=== PATIENT | male | born 1935 | race Caucasian/White ===

== ENCOUNTER → 2016-06-10 | Outpatient (CLI) | payer MEDICARE ==
[~2016-06-10] MED LIST: /WARF2TA; LASI20TA; NEUR300C; POTA10CA2; POTASSIUM; SYNT88TA; TENO50TA; TYLENOL; VICO5TAB; ZOCO20TA
== END ==
LOC: M LAB 08:05
PROVIDERS: ATTEND Physician Assistant
DX: I35.8 Other nonrheumatic aortic valve disorders (principal)

== ENCOUNTER → 2016-06-11 | Outpatient (CLI) | payer MEDICARE | LOC: M LAB 10:56 | PROVIDERS: ATTEND Physician Assistant | DX: I35.8 Other nonrheumatic aortic valve disorders (principal) ==

== ENCOUNTER → 2016-06-12 | Outpatient (CLI) | payer MEDICARE | LOC: M LAB 10:17 | PROVIDERS: ATTEND Physician Assistant | DX: I35.8 Other nonrheumatic aortic valve disorders (principal) ==

== ENCOUNTER → 2016-06-17 | Outpatient (CLI) | payer MEDICARE ==
[2016-06-17 12:04] LABS: INR 2.4
== END ==
LOC: M SMT 09:05
PROVIDERS: ATTEND Internal Medicine Cardiovascular Disease
DX: I48.2 Chronic atrial fibrillation (principal)

== ENCOUNTER → 2016-06-17 | Outpatient (CLI) | payer MEDICARE | LOC: M SMT 09:02 | PROVIDERS: ATTEND Urology | DX: C61 Malignant neoplasm of prostate (principal); I48.2 Chronic atrial fibrillation ==

== ENCOUNTER → 2016-07-06 | Outpatient (CLI) | payer MEDICARE ==
[2016-07-06 08:12] LABS: INR 2.18
== END ==
LOC: M LAB 07:27
PROVIDERS: ATTEND Physician Assistant
DX: I48.2 Chronic atrial fibrillation (principal)

== ENCOUNTER → 2016-07-10 | Outpatient (CLI) | payer MEDICARE ==
--- NOTE | 2016-07-10 13:05 | REP ---
TRANSRECTAL PROSTATE ULTRASOUND WITH ULTRASOUND GUIDANCE FOR PROSTATE BIOPSY: Real-time sonographic evaluation of the prostate performed utilizing transrectal probe. Sagittal gland is 5.0 x 3.5 x 5.0 cm for a total volume of 45.9 mL. Seminal vesicles are symmetrical. Echotexture of the prostate is heterogeneous with scattered tiny calcifications. Hypoechoic nodular area on the right measures 8 x 6 x 9 mm. This appears to have been present on the prior study and has not definitely changed. Ultrasound guidance was provided for Dr. Meadows who performed ultrasound guided biopsy of the prostate. Signed by Azar Francis MD 07/10/2016 02:29 P
== END | disposition home or self-care (01) ==
LOC: M SMT PRO 09:20
PROVIDERS: ATTEND Urology
DX: C61 Malignant neoplasm of prostate (principal)
CPT/HCPCS: 76872; 76942; G0416

== ENCOUNTER → 2016-08-03 | Outpatient (CLI) | payer MEDICARE ==
[2016-08-03 14:02] LABS: INR 1.95
== END ==
LOC: M SMT 09:04
PROVIDERS: ATTEND Internal Medicine Cardiovascular Disease
DX: I48.2 Chronic atrial fibrillation (principal)

== ENCOUNTER → 2016-09-01 | Outpatient (CLI) | payer MEDICARE ==
[~2016-09-01] VITALS: Ht 167.6 cm; Wt 56.7 kg
[~2016-09-01] MED LIST changes: +ATEN50TA2 PO; +COUM1TAB19 PO; +LASI20TA PO; +LEVO88TA3 PO; +MICR10CA PO; +PROPOFOL 200 MG/20 ML VIAL As Ordered ONE; +SIMV20TA2 PO
[2016-09-01] MEDS: LR 1,000 ML IV SCH ×2 (08:38→08:39)
--- NOTE | 2016-09-01 10:12 | ROOR ---
Patient Name: Surinder Moran Procedure Date: 09/01/2016 9:17 AM Date of : 1935 Age: 81 Room: [facility] Gender: Male Note Status: Finalized Procedure: Colonoscopy Indications: High risk colon cancer surveillance: Personal history of colon cancer, Last colonoscopy: April 2012 Providers: Clark Adan MD Referring MD: MAGUI DRAKE MD Requesting Provider: Medicines: Monitored Anesthesia Care Complications: No immediate complications. Procedure: Pre-Anesthesia Assessment: - Prior to the procedure, a History and Physical was performed, and patient medications and allergies were reviewed. The patient is competent. The risks and benefits of the procedure and the sedation options and risks were discussed with the patient. All questions were answered and informed consent was obtained. Patient identification and proposed procedure were verified by the physician, the nurse and the anesthesiologist in the procedure room. Mental Status Examination: alert and oriented. Airway Examination: normal oropharyngeal airway and neck mobility. CV Examination: regular rate and rhythm. Prophylactic Antibiotics: The patient does not require prophylactic antibiotics. Prior Anticoagulants: The patient has taken no previous anticoagulant or antiplatelet agents. ASA Grade Assessment: III - A patient with severe systemic disease. After reviewing the risks and benefits, the patient was deemed in satisfactory condition to undergo the procedure. The anesthesia plan was to use monitored anesthesia care (MAC). Immediately prior to administration of medications, the patient was re-assessed for adequacy to receive sedatives. The heart rate, respiratory rate, oxygen saturations, blood pressure, adequacy of pulmonary ventilation, and response to care were monitored throughout the procedure. The physical status of the patient was re-assessed after the procedure. The Colonoscope was introduced through the anus and advanced to the cecum, identified by appendiceal orifice and ileocecal valve. The colonoscopy was performed without difficulty. The patient tolerated the procedure well. The quality of the bowel preparation was excellent. Findings: The perianal and digital rectal examinations were normal. There was evidence of a prior functional end-to-end colo-colonic anastomosis at 30 cm proximal to the anus. This was characterized by healthy appearing mucosa. Two sessile polyps were found in the proximal ascending colon. The polyps were 4 to 5 mm in size. These polyps were removed with a hot snare. Resection and retrieval were complete. Two sessile polyps were found in the splenic flexure. The polyps were 3 to 4 mm in size. These polyps were removed with a hot snare. Resection and retrieval were complete. A 2 mm polyp was found at 25 cm proximal to the anus. The polyp was sessile. Coagulation for tissue destruction using snare was successful. Impression: - Functional end-to-end colo-colonic anastomosis, characterized by healthy appearing mucosa. - Two 4 to 5 mm polyps in the proximal ascending colon, removed with a hot snare. Resected and retrieved. - Two 3 to 4 mm polyps at the splenic flexure, removed with a hot snare. Resected and retrieved. - One 2 mm polyp at 25 cm proximal to the anus. Treated with a hot snare. Recommendation: - Discharge patient to home. - Resume regular diet. - Continue present medications. - Await pathology results. - Telephone endoscopist for pathology results in 10 days. Clark Adan MD 09/01/2016 10:11:52 AM Number of Addenda: 0 Note Initiated On: 09/01/2016 9:17 AM Estimated Blood Loss: Estimated blood loss: none.
[2016-09-01 10:20] VITALS: BP 118/68
== END | disposition home or self-care (01) ==
LOC: M OPP 08:20
PROVIDERS: ATTEND Surgery
DX: Z12.11 Encounter for screening for malignant neoplasm of colon (principal); D12.2 Benign neoplasm of ascending colon; D12.3 Benign neoplasm of transverse colon; D12.5 Benign neoplasm of sigmoid colon; Z85.038 Personal history of other malignant neoplasm of large intestine; Z98.0 Intestinal bypass and anastomosis status; I48.91 Unspecified atrial fibrillation; I10 Essential (primary) hypertension; E78.5 Hyperlipidemia, unspecified; E03.9 Hypothyroidism, unspecified; M81.0 Age-related osteoporosis without current pathological fracture; F03.90 Unspecified dementia, unspecified severity, without behavioral disturbance, psychotic disturbance, mood disturbance, and anxiety; Z92.3 Personal history of irradiation; J44.9 Chronic obstructive pulmonary disease, unspecified; Z85.46 Personal history of malignant neoplasm of prostate; Z79.01 Long term (current) use of anticoagulants; Z79.899 Other long term (current) drug therapy; Z87.891 Personal history of nicotine dependence

== ENCOUNTER → 2016-09-01 | Outpatient (CLI) | payer MEDICARE ==
[~2016-09-01] MED LIST changes: -PROPOFOL 200 MG/20 ML VIAL As Ordered ONE
[2016-09-01 14:19] LABS: INR 1.06
== END ==
LOC: M SMT 10:58
PROVIDERS: ATTEND Internal Medicine Cardiovascular Disease
DX: I48.2 Chronic atrial fibrillation (principal)

== ENCOUNTER → 2016-09-09 | Outpatient (CLI) | payer MEDICARE ==
[2016-09-09 13:43] LABS: INR 1.56
== END ==
LOC: M SMT 09:35
PROVIDERS: ATTEND Internal Medicine Cardiovascular Disease
DX: I48.2 Chronic atrial fibrillation (principal)

== ENCOUNTER → 2016-09-16 | Outpatient (CLI) | payer MEDICARE ==
[2016-09-16 14:11] LABS: INR 1.82
== END ==
LOC: M SMT 09:12
PROVIDERS: ATTEND Internal Medicine Cardiovascular Disease
DX: I48.2 Chronic atrial fibrillation (principal)

== ENCOUNTER → 2016-10-01 | Outpatient (CLI) | payer MEDICARE ==
[2016-10-01 12:44] LABS: INR 2.11
== END ==
LOC: M SMT 09:06
PROVIDERS: ATTEND Internal Medicine Cardiovascular Disease
DX: I48.2 Chronic atrial fibrillation (principal)

== ENCOUNTER → 2016-11-03 | Outpatient (CLI) | payer MEDICARE ==
[2016-11-03 13:33] LABS: INR 2.27
== END ==
LOC: M SMT 09:18
PROVIDERS: ATTEND Internal Medicine Cardiovascular Disease
DX: I48.2 Chronic atrial fibrillation (principal)

== ENCOUNTER → 2016-12-04 | Outpatient (CLI) | payer MEDICARE ==
[~2016-12-04] MED LIST changes: +ACET30TAB PO
[2016-12-04 13:29] LABS: INR 2.37
== END ==
LOC: M SMT 08:41
PROVIDERS: ATTEND Internal Medicine Cardiovascular Disease
DX: I48.2 Chronic atrial fibrillation (principal)

== ENCOUNTER → 2017-01-04 | Outpatient (CLI) | payer MEDICARE ==
[2017-01-04 13:24] LABS: INR 2.45
== END ==
LOC: M SMT 09:08
PROVIDERS: ATTEND Internal Medicine Cardiovascular Disease
DX: I48.2 Chronic atrial fibrillation (principal)

== ENCOUNTER 2017-01-12 13:42 | Emergency (ER) | payer MEDICARE ==
[~2017-01-12] VITALS: Ht 170.2 cm; Wt 63.1 kg
[~2017-01-12 13:42] MED LIST changes: -ACET30TAB PO
[2017-01-12] MEDS ORDERED: NS 500 ML IV ONE (15:00)
[2017-01-12 15:27] LABS: BASO % 0.2 % (0.0-1.0); EOS # 0.1 K/mm3 (0.0-0.50); EOS % 1.3 % (0.0-3.0); LARGE UNSTAINED CELL # 0.2 K/mm3 (0.0-0.4); LARGE UNSTAINED CELL % 1.9 % (0.0-4.0); LYMPH # 1.7 K/mm3 (1.5-4.5); LYMPH % 15.7 % (24.0-44.0); MEAN CORPUSCULAR HEMOGLOBIN 30.6 pg (27.0-33.0); MEAN CORPUSCULAR HGB CONC 32.8 g/dl (32.0-36.5); MEAN CORPUSCULAR VOLUME 93.1 fl (80.0-96.0); MONO # 0.6 K/mm3 (0.0-0.8); MONO % 6.2 % (0.0-5.0); NEUTROPHILS # 7.1 K/mm3 (1.8-7.7); NEUTROPHILS % 74.7 % (36.0-66.0); PLATELET COUNT, AUTOMATED 204 k/mm3 (150-450); RED CELL DISTRIBUTION WIDTH 13.7 % (11.5-14.5); WHITE BLOOD COUNT 9.5 K/mm3 (4.0-10.0)
[2017-01-12 15:37] LABS: INR 2.62
[2017-01-12 15:45] LABS: ALBUMIN 3.9 GM/DL (3.2-5.2); ALBUMIN/GLOBULIN RATIO 1.11 (1.00-1.93); ALKALINE PHOSPHATASE 76 U/L (45-117); ALT/SGPT 85 U/L (12-78); ANION GAP 6 MEQ/L (8-16); AST/SGOT 140 U/L (15-37); BILIRUBIN,DIRECT 0.4 MG/DL (0.0-0.2); BILIRUBIN,TOTAL 1.5 MG/DL (0.2-1.0); BLOOD UREA NITROGEN 22 MG/DL (7-18); CALCIUM LEVEL 9.1 MG/DL (8.8-10.2); CARBON DIOXIDE LEVEL 32 MEQ/L (21-32); CHLORIDE LEVEL 103 MEQ/L (98-107); CREATININE FOR GFR 1.13 MG/DL (0.70-1.30); GLOMERULAR FILTRATION RATE > 60.0 (>42); GLUCOSE, FASTING 101 MG/DL (83-110); SODIUM LEVEL 141 MEQ/L (136-145); TOTAL PROTEIN 7.4 GM/DL (6.4-8.2)
[2017-01-12] MEDS ORDERED: ISOVUE-370 76% 100ML VIAL (Q9967) As Ordered ONE (17:00)
--- NOTE | 2017-01-12 18:13 | REP ---
CT BRAIN WITHOUT IV CONTRAST: CT brain is performed without IV contrast. There is moderate atrophy. There is no midline shift. There are patchy small vessel ischemic changes in the periventricular white matter bilaterally. Likely chronic in nature. 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 There is no acute intracranial hemorrhage or extra-axial fluid collection. Vascular calcifications are seen in the carotid siphons bilaterally. There is no evidence of a skull fracture. IMPRESSION: No evidence of acute bleed or fracture. Chronic changes as above. Signed by Azar Francis MD 01/12/2017 08:14 P
--- NOTE | 2017-01-12 18:33 | REP ---
CT CERVICAL SPINE WITHOUT IV CONTRAST: CT cervical spine is performed without IV contrast. Sagittal and coronal reconstruction images are performed. There is no compression fracture. There is slight retrolisthesis of C4 on C5, C5 on C6 and C6 on C7. There is moderately severe disc space narrowing with subchondral sclerosis at C4-5 and C5-6 with moderate to moderately severe disc space narrowing at C6-7. There is mild narrowing at C2-3 and C3-4. There is mild to moderate diffuse spurring. There is diffuse narrowing and sclerosis at the posterior facet joints. There appears to be left paracentral disc bulging at C3-4, moderate diffuse disc bulging at C4-5 with at least moderate bilateral foraminal narrowing at that level. There is diffuse disc bulging at C5-6 with at least moderate bilateral foraminal narrowing at that level. Incidental note is made of a somewhat spiculated nodule in the right apex of the lung measuring 6 mm in diameter. IMPRESSION: Degenerative changes. No evidence acute fracture. Small spiculated nodular density right upper lung. Recommend CT of the chest for further evaluation. Signed by Azar Francis MD 01/12/2017 08:14 P
--- NOTE | 2017-01-12 18:45 | REP ---
CT ABDOMEN AND PELVIS WITH IV CONTRAST: TECHNIQUE: Axial noncontrast images through the abdomen followed by contrast-enhanced images through the abdomen and pelvis using 100 mL Isovue 370 intravenous contrast material, with coronal and sagittal reformations. Visualized lung bases demonstrate interstitial fibrosis. The liver, spleen, adrenals, pancreas and kidneys demonstrate no evidence of visceral organ injury or hematoma. There is a cyst in the lower pole of the left kidney with a peripheral calcification. There is no hydronephrosis bilaterally. There is no abdominal aortic aneurysm with atherosclerotic calcifications noted of the abdominal aorta. There is no adenopathy, free air or free fluid. No bowel wall thickening is seen. No definite pelvic abnormality is seen. There are degenerative changes of the spine. There are nondisplaced fractures of the right transverse processes of L2 and L3. IMPRESSION: Nondisplaced fractures of the right transverse processes of L2 and L3. Otherwise, no acute intraabdominal or pelvic pathology. Signed by Azar Francis MD 01/12/2017 08:15 P
[2017-01-12] MEDS ORDERED: ACET30TAB PO (18:59)
--- NOTE | 2017-01-12 19:21 | REP ---
LEFT FOOT SERIES: Four views of the left foot performed. There is a nondisplaced fracture of the 1st distal phalanx. No other acute fracture or dislocation is seen. IMPRESSION: Nondisplaced fracture 1st distal phalanx. Signed by Azar Francis MD 01/12/2017 08:16 P
[2017-01-12 19:27] VITALS: BP 132/84
--- NOTE | 2017-01-19 13:57 | ED PDOC ---
Post-Departure Follow-Up dr marr faxed formal report of ct c spine. additionally pt sent certiied letter. please see lung abnormality. needs fu Rukhsana Ortiz MD Jan 19, 2017 13:57
== END 2017-01-12 19:28 | disposition home or self-care (01) ==
LOC: M ED 13:42
DX: S09.90XA Unspecified injury of head, initial encounter (principal); S32.029A Unspecified fracture of second lumbar vertebra, initial encounter for closed fracture; S32.039A Unspecified fracture of third lumbar vertebra, initial encounter for closed fracture; S92.405A Nondisplaced unspecified fracture of left great toe, initial encounter for closed fracture; R91.1 Solitary pulmonary nodule; W22.8XXA Striking against or struck by other objects, initial encounter; Y92.099 Unspecified place in other non-institutional residence as the place of occurrence of the external cause; Y93.9 Activity, unspecified; Y99.9 Unspecified external cause status; I10 Essential (primary) hypertension; N40.0 Benign prostatic hyperplasia without lower urinary tract symptoms; M54.5 Low back pain; Z79.01 Long term (current) use of anticoagulants; Z79.899 Other long term (current) drug therapy
CPT/HCPCS: 70450; 72125; 73630; 74177; 80048; 80076; 81001; 85025; 85610; 85730; 86850; 86900; 86901; 96360; 96361; 99284; Q9967

== ENCOUNTER → 2017-01-22 | Outpatient (CLI) | payer MEDICARE ==
[~2017-01-22] MED LIST changes: +ACET30TAB PO
== END ==
LOC: M SMT 09:08
PROVIDERS: ATTEND Urology
DX: C61 Malignant neoplasm of prostate (principal)

== ENCOUNTER → 2017-02-09 | Outpatient (CLI) | payer MEDICARE ==
[2017-02-09 11:11] LABS: INR 2.29
== END ==
LOC: M SMT 09:32
PROVIDERS: ATTEND Internal Medicine Cardiovascular Disease
DX: I48.2 Chronic atrial fibrillation (principal)

== ENCOUNTER → 2017-03-10 | Outpatient (CLI) | payer MEDICARE ==
[2017-03-10 13:25] LABS: INR 2.73
== END ==
LOC: M SMT 11:33
PROVIDERS: ATTEND Internal Medicine Cardiovascular Disease
DX: I48.2 Chronic atrial fibrillation (principal)

== ENCOUNTER → 2017-05-10 | Outpatient (CLI) | payer MEDICARE ==
[2017-05-10 14:08] LABS: INR 2.56
== END ==
LOC: M SMT 09:42
PROVIDERS: ATTEND Internal Medicine Cardiovascular Disease
DX: I48.2 Chronic atrial fibrillation (principal)

== ENCOUNTER → 2017-06-08 | Outpatient (CLI) | payer MEDICARE ==
[2017-06-08 13:46] LABS: INR 2.55; PROTHROMBIN TIME 28.5 SECONDS (12.4-14.5)
== END ==
LOC: M SMT 09:53
DX: I48.2 Chronic atrial fibrillation (principal)
CPT/HCPCS: 85610

== ENCOUNTER → 2017-07-09 | Outpatient (CLI) | payer MEDICARE ==
[2017-07-09 13:59] LABS: INR 2.38; PROTHROMBIN TIME 26.9 SECONDS (12.4-14.5)
== END ==
LOC: M SMT 09:27
DX: I48.2 Chronic atrial fibrillation (principal)
CPT/HCPCS: 85610

== ENCOUNTER → 2017-08-03 | Outpatient (CLI) | payer MEDICARE ==
[2017-08-03 14:27] LABS: PROSTATIC SPECIFIC AG MONITOR 7.33 NG/ML (< 4.0)
== END ==
LOC: M SMT 09:25
DX: C61 Malignant neoplasm of prostate (principal)
CPT/HCPCS: 84153

== ENCOUNTER → 2017-08-10 | Outpatient (CLI) | payer MEDICARE ==
[2017-08-10 14:16] LABS: INR 2.43; PROTHROMBIN TIME 27.3 SECONDS (12.4-14.5)
== END ==
LOC: M SMT 10:34
DX: I48.2 Chronic atrial fibrillation (principal); Z51.81 Encounter for therapeutic drug level monitoring; Z79.01 Long term (current) use of anticoagulants
CPT/HCPCS: 85610

== ENCOUNTER → 2017-10-07 | Outpatient (CLI) | payer MEDICARE ==
[2017-10-07 11:10] LABS: INR 2.66; PROTHROMBIN TIME 29.5 SECONDS (12.4-14.5)
== END ==
LOC: M SMT 09:13
DX: I48.2 Chronic atrial fibrillation (principal)
CPT/HCPCS: 85610

== ENCOUNTER → 2017-11-08 | Outpatient (CLI) | payer MEDICARE ==
[2017-11-08 11:15] LABS: INR 2.42; PROTHROMBIN TIME 27.3 SECONDS (12.4-14.5)
== END ==
LOC: M SMT 08:52
DX: I48.2 Chronic atrial fibrillation (principal)
CPT/HCPCS: 85610

== ENCOUNTER → 2017-12-01 | Outpatient (REF) | payer MEDICARE ==
[2017-12-01 18:57] LABS: APPEARANCE, URINE CLEAR (CLEAR); BACTERIA, URINE AUTO NEGATIVE (NEGATIVE); BILIRUBIN, URINE AUTO NEGATIVE (NEGATIVE); BLOOD, URINE BLOOD 1+ (NEGATIVE); COLOR, URINE YELLOW (YELLOW); GLUCOSE, URINE (UA) AUTO NEGATIVE (NEGATIVE); KETONE, URINE AUTO NEGATIVE (NEGATIVE); LEUKOCYTE ESTERASE, URINE AUTO NEGATIVE (NEGATIVE); MUCUS, URINE SMALL (NEGATIVE); NITRITE, URINE AUTO NEGATIVE (NEGATIVE); PROTEIN, URINE AUTO NEGATIVE (NEGATIVE); RBC, URINE AUTO 2 /HPF (0-3); SQUAMOUS EPITHELIAL CELL UR AU 0 /HPF (0-6); UROBILINOGEN, URINE AUTO 0.2 mg/dL (0.0-2.0); WBC, URINE AUTO 0 /HPF (0-3)
== END ==
LOC: M SMT 16:58
DX: R35.0 Frequency of micturition (principal)
CPT/HCPCS: 81001

== ENCOUNTER → 2017-12-06 | Outpatient (CLI) | payer MEDICARE ==
[2017-12-06 13:29] LABS: INR 2.62; PROTHROMBIN TIME 28.6 SECONDS (12.1-14.4)
== END ==
LOC: M SMT 09:35
DX: Z51.81 Encounter for therapeutic drug level monitoring (principal); Z79.01 Long term (current) use of anticoagulants; I48.2 Chronic atrial fibrillation
CPT/HCPCS: 85610

== ENCOUNTER → 2018-01-06 | Outpatient (CLI) | payer MEDICARE ==
[2018-01-06 11:01] LABS: INR 3.13; PROTHROMBIN TIME 32.9 SECONDS (12.1-14.4)
== END ==
LOC: M SMT 09:09
DX: Z51.81 Encounter for therapeutic drug level monitoring (principal); Z79.01 Long term (current) use of anticoagulants; I48.2 Chronic atrial fibrillation
CPT/HCPCS: 85610

== ENCOUNTER → 2018-01-17 | Outpatient (CLI) | payer MEDICARE ==
[2018-01-17 13:17] LABS: HEMOGLOBIN 13.9 g/dl (13.5-17.5); MEAN CORPUSCULAR HEMOGLOBIN 30.2 pg (27.0-33.0); MEAN CORPUSCULAR HGB CONC 31.6 g/dl (32.0-36.5); MEAN CORPUSCULAR VOLUME 95.4 fl (80.0-96.0); PLATELET COUNT, AUTOMATED 201 10^3/uL (150-450); RED BLOOD COUNT 4.61 10^6/uL (4.30-6.10); RED CELL DISTRIBUTION WIDTH 14.2 % (11.5-14.5)
[2018-01-17 13:41] LABS: INR 2.45; PROTHROMBIN TIME 27.1 SECONDS (12.1-14.4)
== END ==
LOC: M SMT 11:33
DX: Z51.81 Encounter for therapeutic drug level monitoring (principal); Z79.01 Long term (current) use of anticoagulants; I48.2 Chronic atrial fibrillation
CPT/HCPCS: 85610

== ENCOUNTER → 2018-02-15 | Outpatient (CLI) | payer MEDICARE ==
[2018-02-15 14:06] LABS: HEMATOCRIT 39.8 % (42.0-52.0); HEMOGLOBIN 12.5 g/dl (13.5-17.5); MEAN CORPUSCULAR HEMOGLOBIN 29.7 pg (27.0-33.0); MEAN CORPUSCULAR HGB CONC 31.4 g/dl (32.0-36.5); MEAN CORPUSCULAR VOLUME 94.5 fl (80.0-96.0); PLATELET COUNT, AUTOMATED 188 10^3/uL (150-450); RED BLOOD COUNT 4.21 10^6/uL (4.30-6.10); RED CELL DISTRIBUTION WIDTH 14.2 % (11.5-14.5); WHITE BLOOD COUNT 7.8 10^3/uL (4.0-10.0)
[2018-02-15 14:37] LABS: INR 1.77; PROTHROMBIN TIME 20.9 SECONDS (12.1-14.4)
== END ==
LOC: M SMT 09:56
DX: I48.2 Chronic atrial fibrillation (principal)
CPT/HCPCS: 85610

== ENCOUNTER → 2018-02-22 | Outpatient (CLI) | payer MEDICARE ==
[2018-02-22 13:58] LABS: INR 2.53; PROTHROMBIN TIME 27.8 SECONDS (12.1-14.4)
== END ==
LOC: M SMT 08:53
DX: I48.2 Chronic atrial fibrillation (principal)
CPT/HCPCS: 85610

== ENCOUNTER → 2018-03-15 | Outpatient (REF) | payer MEDICARE ==
[2018-03-15 12:54] LABS: CREATININE FOR GFR 1.18 MG/DL (0.70-1.30); GLOMERULAR FILTRATION RATE > 60.0 (>35)
[2018-03-15 12:54] LABS: BLOOD UREA NITROGEN 22 MG/DL (7-18)
== END ==
LOC: M LABDRAW1 11:43
DX: M17.11 Unilateral primary osteoarthritis, right knee (principal)
CPT/HCPCS: 82565

== ENCOUNTER → 2018-03-22 | Outpatient (CLI) | payer MEDICARE ==
[2018-03-22 13:21] LABS: HEMATOCRIT 40.2 % (42.0-52.0); HEMOGLOBIN 12.5 g/dl (13.5-17.5); MEAN CORPUSCULAR HGB CONC 31.1 g/dl (32.0-36.5); MEAN CORPUSCULAR VOLUME 96.4 fl (80.0-96.0); PLATELET COUNT, AUTOMATED 177 10^3/uL (150-450); RED BLOOD COUNT 4.17 10^6/uL (4.30-6.10); RED CELL DISTRIBUTION WIDTH 14.5 % (11.5-14.5); WHITE BLOOD COUNT 10.2 10^3/uL (4.0-10.0)
[2018-03-22 13:33] LABS: PROTHROMBIN TIME 42.3 SECONDS (12.1-14.4)
== END ==
LOC: M SMT 09:23
DX: I48.2 Chronic atrial fibrillation (principal); Z51.81 Encounter for therapeutic drug level monitoring; Z79.01 Long term (current) use of anticoagulants
CPT/HCPCS: 85610

== ENCOUNTER → 2018-03-29 | Outpatient (CLI) | payer MEDICARE ==
[2018-03-29 13:35] LABS: INR 3.59; PROTHROMBIN TIME 36.7 SECONDS (12.1-14.4)
== END ==
LOC: M SMT 11:33
DX: I48.2 Chronic atrial fibrillation (principal)
CPT/HCPCS: 85610

== ENCOUNTER → 2018-04-12 | Outpatient (CLI) | payer MEDICARE ==
[2018-04-12 14:09] LABS: INR 3.45; PROTHROMBIN TIME 35.5 SECONDS (12.1-14.4)
== END ==
LOC: M SMT 10:10
DX: I48.2 Chronic atrial fibrillation (principal); Z51.81 Encounter for therapeutic drug level monitoring; Z79.01 Long term (current) use of anticoagulants
CPT/HCPCS: 85610

== ENCOUNTER → 2018-04-26 | Outpatient (CLI) | payer MEDICARE ==
[2018-04-26 13:46] LABS: INR 4.04; PROTHROMBIN TIME 40.3 SECONDS (12.1-14.4)
== END ==
LOC: M SMT 09:21
DX: I48.2 Chronic atrial fibrillation (principal)
CPT/HCPCS: 85610

== ENCOUNTER → 2018-05-04 | Outpatient (CLI) | payer MEDICARE ==
[2018-05-04 12:56] LABS: INR 2.98; PROTHROMBIN TIME 31.6 SECONDS (12.1-14.4)
== END ==
LOC: M SMT 10:35
DX: I48.2 Chronic atrial fibrillation (principal)
CPT/HCPCS: 85610

== ENCOUNTER → 2018-05-18 | Outpatient (CLI) | payer MEDICARE ==
[2018-05-18 13:57] LABS: INR 3.85; PROTHROMBIN TIME 38.8 SECONDS (12.1-14.4)
== END ==
LOC: M SMT 08:42
DX: I48.2 Chronic atrial fibrillation (principal); Z51.81 Encounter for therapeutic drug level monitoring; Z79.01 Long term (current) use of anticoagulants
CPT/HCPCS: 85610

== ENCOUNTER → 2018-05-25 | Outpatient (REF) | payer MEDICARE | LOC: M LAB REF 17:03 | PROVIDERS: ATTEND Physician Assistant | DX: L02.212 Cutaneous abscess of back [any part, except buttock and flank] (principal) ==

== ENCOUNTER → 2018-06-02 | Outpatient (CLI) | payer MEDICARE ==
[~2018-06-02] MED LIST changes: +K-TA1TAB PO; -LASI20TA PO; +LASI20TA3 PO; +LEVO125T4 PO; +MEMA1TAB2 PO; +QUET1TAB7 PO; +WARF-18 PO; +WARF-58 PO
[2018-06-02 13:02] LABS: HEMATOCRIT 42.5 % (42.0-52.0); HEMOGLOBIN 13.5 g/dl (13.5-17.5); MEAN CORPUSCULAR HEMOGLOBIN 29.7 pg (27.0-33.0); MEAN CORPUSCULAR HGB CONC 31.8 g/dl (32.0-36.5); MEAN CORPUSCULAR VOLUME 93.6 fl (80.0-96.0); PLATELET COUNT, AUTOMATED 213 10^3/uL (150-450); RED BLOOD COUNT 4.54 10^6/uL (4.30-6.10); WHITE BLOOD COUNT 9.5 10^3/uL (4.0-10.0)
[2018-06-02 13:15] LABS: INR 3.8; PROTHROMBIN TIME 38.4 SECONDS (12.1-14.4)
== END ==
LOC: M SMT 09:38
PROVIDERS: ATTEND Physician Assistant
DX: I48.2 Chronic atrial fibrillation (principal)

== ENCOUNTER 2018-06-17 13:40 | Day surgery (SDC) | payer MEDICARE ==
[~2018-06-17] VITALS: Ht 165.1 cm; Wt 51.6 kg
[~2018-06-17 13:40] MED LIST changes: +**UNRESOLVED NON-FORMULARY MED ORDER XX SCH; +LIDOCAINE 1% MDV 20ML VIAL SQ PRN
[2018-06-17] MEDS ORDERED: ceFAZolin SOD 1 GM in D5W MINI-BAG PLUS 50 ML IV ONE (14:00)
[2018-06-17 14:19] LABS: INR 1.94; PROTHROMBIN TIME 22.5 SECONDS (12.1-14.4)
[2018-06-17] MEDS ORDERED: dexameTHASONE 4 MG/ML 1ML VIAL (J1100) As Ordered ONE (14:46)
[2018-06-17] MEDS ORDERED: ONDANSETRON 4MG/2ML VIAL (J2405) As Ordered ONE (14:46)
[2018-06-17] MEDS ORDERED: LIDOCAINE 2% INJ 100 MG/5 ML SDV (FOR ANES.) As Ordered ONE (14:46)
[2018-06-17] MEDS ORDERED: PROPOFOL 500 MG/50 ML VIAL As Ordered ONE ×2 (14:47→14:51)
[2018-06-17] MEDS ORDERED: fentaNYL 100 MCG/2 ML INJECTION (J3010) As Ordered ONE (14:48)
[2018-06-17] MEDS ORDERED: MIDAZOLAM INJ 2 MG/2 ML VIAL (J2250) As Ordered ONE (14:50)
[2018-06-17] MEDS ORDERED: PROPOFOL 200 MG/20 ML VIAL As Ordered ONE (14:51)
[2018-06-17] MEDS ORDERED: LR 1,000 ML IV ONE (15:00)
[2018-06-17] MEDS ORDERED: LIDOCAINE 1% SDV INJ 30 ML VIAL As Ordered ONE (15:28)
[2018-06-17] MEDS ORDERED: MUPIROCIN 2% OINT 22 GM TUBE As Ordered ONE (15:28)
[2018-06-17] MEDS ORDERED: ISOVUE-300 61% 50ML VIAL (Q9967) As Ordered ONE (15:29)
[2018-06-17] MEDS ORDERED: LR 400 ML IV SCH (15:30)
[2018-06-17] MEDS ORDERED: WARFARIN SOD 2.5 MG TAB PO SCH (17:00)
[2018-06-17] MEDS ORDERED: fentaNYL 100 MCG/2 ML INJECTION (J3010) IV PRN (18:00)
[2018-06-17] MEDS ORDERED: ONDANSETRON 4MG/2ML VIAL (J2405) IV PRN (18:00)
[2018-06-17] MEDS ORDERED: ACETAMINOPHEN TAB 650MG DOSE (2X325MG) PO PRN (18:00)
[2018-06-17] MEDS ORDERED: PERCOCET 5MG/325MG TAB PO PRN (18:00)
[2018-06-17] MEDS ORDERED: PILL CRUSHER/CUTTER 1 EACH XX PRN (18:15)
[2018-06-17 18:59] VITALS: BP 124/62
[2018-06-17 20:00] VITALS: BP 138/72
--- NOTE | 2018-06-17 20:53 | REP ---
Partial chest x-ray: Six views: History: Sick sinus syndrome. 5-spxbgy-32-second fluoroscopy time was utilized. Findings: A sequence of six last image hold fluoroscopically obtained spot radiographs of the chest document pacemaker lead position. Electronically Signed by Ryne Pa MD 06/18/2018 08:16 A
[2018-06-17] MEDS ORDERED: DONEPEZIL 5 MG TAB PO SCH (21:00)
--- NOTE | 2018-06-17 21:13 | REP ---
Portable chest x-ray: Single view: History: Pacemaker. Comparison study: April 25, 2005. Findings: A unipolar left-sided pacemaker is seen in the right heart. The apex of the left and right lungs are excluded from the imaging field of view. There is no large pneumothorax. Pleural angles are sharp. Heart is enlarged unchanged. The aorta is calcific and somewhat tortuous. Impression: Pacemaker insertion. No complication identified. However, must be noted that the apices are excluded from the imaging field of view. A tiny apical pneumothorax cannot be excluded. Electronically Signed by Ryne Pa MD 06/18/2018 08:22 A
--- NOTE | 2018-06-17 22:11 | ECGEPIP ---
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 Electronically Signed On 06-17-2018 22:10:56 EST by Mane Presley
--- NOTE | 2018-06-17 22:21 | RO ---
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 FINDINGS: Complete heart block with asystole. PROCEDURE: SURGEON: Mane Presley MD ADMINISTRATIVE DIETITIAN: None. ANESTHESIA: ESTIMATED BLOOD LOSS: Less than 5 mL. No biopsies, no drains, no specimens. No complications. DESCRIPTION OF PROCEDURE: The patient was prepped and draped over the left pectoral region. 3M Ioban film was applied. Lidocaine 1% was used for local anesthetic. The left subclavian venogram was performed using a total volume of 20 mL consisting of a mixture of Isovue mixed with injectable normal saline in a ratio of 3:1. This was used to enter into the extrathoracic portion of the left subclavian vein in real time as the venogram occurred using a micropuncture needle. This was then guidewire exchanged for a guidewire that came with one of the 6-Tunisian sheaths. Next, a PEAK PlasmaBlade was used to make an incision approximately 2 to 2-1/2 inches in length, 1 cm below the skin entry site of the guidewire. The PEAK PlasmaBlade was used to get through the fatty layer and fibrous Marie's fascia. The pacemaker pocket was then formed in a caudal direction using blunt dissection using two fingers. Next, the guidewire was pulled through the skin into the incision site. A 6-Tunisian sheath with introducer was placed over the guidewire and advanced into the left subclavian vein. The introducer and guidewire were removed, leaving the sheath in place. This was used for venous access for the right ventricle pacing lead, which was placed into the right ventricle apex position under fluoroscopic guidance and secured with a total of 10 turns. This position was found to be electrically and anatomically satisfactory. No diaphragm stimulation could be palpated on either side with 10 volts high output pacing. The 6-Tunisian sheath was then broken apart and removed. The ventricle lead was secured to the pectoral muscle using the supplied tie-down sleeve using two individual sutures consisting of #0 Ethibond to secure it to the pectoral muscle. Another #0 Ethibond suture was placed to the pectoral muscle to serve as a tie-down for the pacemaker pulse generator. Next, a medium size TYRX antimicrobial envelope was cut into six pieces and placed into the floor of the pacemaker pocket. The excess lead material was then coiled underneath the pacemaker pulse generator and placed along with the pacemaker pulse generator into the pacemaker pocket. The deep layer of the incision was closed using individual sutures consisting of #2-0 Vicryl. A few individual #3-0 Vicryl sutures were used to help approximate the more superficial layer. The skin was then closed using john. The patient tolerated the procedure well without any immediate complications. A final cine mode fluoroscopic picture was obtained in the operating room to document final position of the leads in the operating room. The pacemaker pulse generator implanted was a [employer] Edora 8 SR-T with serial number [id number]. The ventricle pacemaker lead was a [employer] Solia S 53, which had serial number [id number]. Final testing in the operating room showed right ventricle capture threshold to be 0.4 volts at 0.4 milliseconds with a lead impedance of 585 milliseconds. No R waves could be determined because the patient became pacemaker dependent with underlying asystole once testing of the pacemaker lead began.
[2018-06-17] MEDS: OCUVITE 1 TAB PO SCH (22:40)
[2018-06-17 23:00] VITALS: BP 128/69
[2018-06-17 23:59] VITALS: BP 138/83
[2018-06-18 04:00] VITALS: BP 142/84
[2018-06-18] MEDS ORDERED: LEVOTHYROXINE 62.5MCG PER 1/2 TAB (0.0625MG) PO SCH (06:00)
[2018-06-18 07:12] VITALS: BP 138/76
--- NOTE | 2018-06-18 08:37 | REP ---
Chest x-ray: Two views. History: Post pacemaker. Comparison study: June 17, 2018 at 05:42 p.m. Findings: A unipolar left subclavian transvenous pacemaker is been installed in the right heart. There is no evidence of pneumothorax or hydrothorax. Aorta is somewhat tortuous. There is mitral annular calcification again noted. Lung krishna are clear. Impression: Pacemaker in place. No complication is identified. Electronically Signed by Ryne Pa MD 06/18/2018 08:29 A
[2018-06-18] MEDS: OCUVITE 1 TAB PO SCH (08:42)
[2018-06-18] MEDS ORDERED: FUROSEMIDE 20 MG TAB PO SCH (09:00)
[2018-06-18] MEDS ORDERED: MEMANTINE 5MG TABLET (NAMENDA) PO SCH (09:00)
[2018-06-18] MEDS ORDERED: POTASSIUM CHLORIDE 10 MEQ SR TABLET PO SCH (09:00)
[2018-06-18] MEDS ORDERED: SIMVASTATIN 20 MG TAB PO SCH (09:00)
[2018-06-18] MEDS ORDERED: Acetaminophen Tab PO (11:04)
== END 2018-06-18 12:34 | disposition home or self-care (01) ==
LOC: M SDC 13:40 → M PCU 18:35 → M SDC 06-18 12:34
PROVIDERS: ATTEND Internal Medicine Cardiovascular Disease
DX: I44.2 Atrioventricular block, complete (principal); I48.91 Unspecified atrial fibrillation; Z79.01 Long term (current) use of anticoagulants; Z79.899 Other long term (current) drug therapy; I10 Essential (primary) hypertension; E03.9 Hypothyroidism, unspecified; E78.5 Hyperlipidemia, unspecified; Z85.038 Personal history of other malignant neoplasm of large intestine; Z85.46 Personal history of malignant neoplasm of prostate
CPT/HCPCS: 33207; 36415; 71045; 71046; 76000; 85610; 93005; C1785; C1898; J0690; J1100; J2250; J2405; J3010; Q9967

== ENCOUNTER → 2018-07-04 | Outpatient (REF) | payer MEDICARE ==
[~2018-07-04] MED LIST changes: -**UNRESOLVED NON-FORMULARY MED ORDER XX SCH; +Acetaminophen Tab PO; -LIDOCAINE 1% MDV 20ML VIAL SQ PRN
[2018-07-04 13:22] LABS: INR 1.95; PROTHROMBIN TIME 22.6 SECONDS (12.1-14.4)
== END ==
LOC: M LAB REF 12:34
PROVIDERS: ATTEND Physician Assistant
DX: I48.2 Chronic atrial fibrillation (principal)

== ENCOUNTER 2018-07-14 13:13 | Inpatient (IN) | payer MEDICARE ==
[~2018-07-14] VITALS: Ht 167.6 cm; Wt 48.5 kg
[2018-07-14] MEDS ORDERED: WARF4TAB52 PO ×2 (13:34→16:30)
[2018-07-14] MEDS ORDERED: WARF05TA PO (13:34)
--- NOTE | 2018-07-14 13:59 | REP ---
CT Head without contrast HISTORY: Altered mental status COMPARISON: 01/12/2017 Areas of decreased attenuation are present in the periventricular and subcortical white matter. This represents small-vessel ischemic disease. There is no intraparenchymal hemorrhage, acute infarct, mass or midline shift. The ventricular system and cortical sulci as well as subarachnoid space in the posterior fossa are dilated consistent with moderate volume loss. There is no extra cerebral collection. There is no fracture. The visualized sinuses are clear. IMPRESSION: 1. Small-vessel ischemic disease. 2. Moderate volume loss. Electronically Signed by Adam Shaffer MD 07/14/2018 01:50 P
[2018-07-14 14:10] LABS: BASO % 0.2 % (0.0-1.0); EOS % 0.4 % (0.0-3.0); HEMATOCRIT 53.3 % (42.0-52.0); HEMOGLOBIN 16.3 g/dl (13.5-17.5); LYMPH # 1.1 10^3/uL (1.5-4.5); LYMPH % 11.6 % (24.0-44.0); MEAN CORPUSCULAR HEMOGLOBIN 30.5 pg (27.0-33.0); MEAN CORPUSCULAR HGB CONC 30.6 g/dl (32.0-36.5); MEAN CORPUSCULAR VOLUME 99.6 fl (80.0-96.0); MONO # 0.5 10^3/uL (0.0-0.8); MONO % 5.2 % (0.0-5.0); NEUTROPHILS # 7.8 10^3/uL (1.8-7.7); NEUTROPHILS % 82.2 % (36.0-66.0); PLATELET COUNT, AUTOMATED 228 10^3/uL (150-450); RED BLOOD COUNT 5.35 10^6/uL (4.30-6.10); WHITE BLOOD COUNT 9.5 10^3/uL (4.0-10.0)
[2018-07-14 14:42] LABS: ALBUMIN 3.9 GM/DL (3.2-5.2); ALT/SGPT 29 U/L (12-78); BILIRUBIN,DIRECT 0.4 MG/DL (0.0-0.2); BLOOD UREA NITROGEN 74 MG/DL (7-18); CALCIUM LEVEL 9.7 MG/DL (8.8-10.2); CARBON DIOXIDE LEVEL 26 MEQ/L (21-32); CHLORIDE LEVEL 123 MEQ/L (98-107); CPK CREATINE PHOSPHOKINASE 182 U/L (39-308); CREATININE FOR GFR 2.91 MG/DL (0.70-1.30); ETHYL ALCOHOL (ETHANOL) < 0.003 % (0.000-0.010); GLOMERULAR FILTRATION RATE 22.3 (>35); GLUCOSE, FASTING 162 MG/DL (70-100); MB/CK RELATIVE INDEX 4.12 (< OR =4); SODIUM LEVEL 160 MEQ/L (136-145); TROPONIN I 0.19 NG/ML (< 0.10)
[2018-07-14 15:01] LABS: AMPHETAMINES LEVEL URINE NEGATIVE (NEGATIVE); BARBITURATES URINE NEGATIVE (NEGATIVE); BENZODIAZEPINES URINE NEGATIVE (NEGATIVE); CANNABINOIDS URINE NEGATIVE (NEGATIVE); COCAINE METABOLITE URINE NEGATIVE (NEGATIVE); METHADONE URINE NEGATIVE (NEGATIVE); OPIATES URINE NEGATIVE (NEGATIVE); PHENCYCLIDINE URINE NEGATIVE (NEGATIVE)
--- NOTE | 2018-07-14 15:06 | REP ---
Portable chest x-ray: Single view. History: Altered mental status. Comparison chest x-ray: June 18, 2018. Findings: EKG monitoring electrodes overlie the chest. A unipolar pacemaker is seen in the right heart via the left side. Mild cardiac enlargement is seen unchanged. Mitral annular calcifications again noted. The aorta is calcific and mildly tortuous. The lungs are well inflated and clear. Pleural angles are sharp. Pulmonary vasculature is not increased. Impression: Pacemaker in place. Mildly enlarged heart. Otherwise no acute disease. Electronically Signed by Ryne Pa MD 07/14/2018 10:27 P
[2018-07-14] MEDS ORDERED: NS 500 ML IV ONE (15:15)
[2018-07-14 15:53] LABS: MB/CK RELATIVE INDEX 4.12 (< OR =4); TROPONIN I 0.17 NG/ML (< 0.10)
[2018-07-14] MEDS ORDERED: APAP325T4 PO (16:30)
[2018-07-14] MEDS ORDERED: POTA1TAB23 PO (16:36)
[2018-07-14] MEDS ORDERED: WARFARIN SOD 3 MG TAB PO SCH (17:00)
[2018-07-14] MEDS: NS 1,000 ML IV SCH (17:07)
[2018-07-14] MEDS ORDERED: ONDANSETRON 4 MG TAB (S0181) PO PRN (17:15)
[2018-07-14] MEDS ORDERED: ACETAMINOPHEN TAB 650MG DOSE (2X325MG) PO PRN (17:15)
[2018-07-14] MEDS ORDERED: PILL CRUSHER/CUTTER 1 EACH XX PRN (17:30)
--- NOTE | 2018-07-14 18:02 | HPEPDOC ---
[facility] Medical History & Physical Date of Admission Jul 14, 2018 Primary Care Physician: A Other Provider Bola for cardiology, Abdiel for urology Attending Physician: GARY PRIETO MD History and Physical PCP: Gregory Talbert CHIEF COMPLAINT: Weakness, lethargy, poor by mouth intake, questionable TIA HISTORY OF PRESENT ILLNESS: She is an 83-year-old male with a past medical history of A. fib, hypothyroidism, right crypto or snf, hematuria, hypertension, prostate, and dementia. Patient presents via ambulance because has noted patient appears tired, sleeping, has decreased by mouth intake. According to the , patient attempted to get up from a chair this morning and was slumped over to the left while holding his walker. Patient was unresponsive at a time, does not recall if those facial drooping, does not recall if pt had slurring of words, does not remember if patient had eyes open, she does not recall any seizure activity. The and home health aide who arrived to find patient slumped, carried patient to the shower. After shower. They noted the patient was continued to be lethargic, weak, not very responsive. He then proceeded to call EMS. On initial evaluation, patient was sleepy and lethargic, difficult to awaken. History was obtained by and son. Initial laboratory values showed sodium of 160, potassium of 4.5, BUN of 74, with a creatinine of 2.91. Hospice team was called for admission. Possibly due to altered mental stat us, question will TIA. Initial CT in [place] x-ray and urine were negative. Patient recently had a cardiac pacemaker placed on 06/17/[address] Presley. He has since had a follow-up appointment. Patient's does not recall any new changes in medication. PAST MEDICAL HISTORY: A. fib. Hypothyroidism. Right cryptorchidism. Hematuria. Hypertension. Prostate cancer. Dementia PAST SURGICAL HISTORY: Right inguinal hernia. Left inguinal hernia repair, cardiac pacemaker, right colectomy, right acute to me, SOCIAL HISTORY: Patient quit smoking in 2004, denies alcohol, denies illicit drug use, FAMILY HISTORY: Noncontributory ALLERGIES: Please see below. REVIEW OF SYSTEMS: Unable to obtain due to patient's pathology and sleepiness, stated that he has not noticed any blood in stool, he has noticed patient has had poor decreased by mouth intake, no nausea, no vomiting, no diarrhea. No seizure like activity, HOME MEDICATIONS: Please see below. PHYSICAL EXAMINATION: VITAL SIGNS: See below GENERAL APPEARANCE: Sleepy, lethargic, elderly gentleman, appears older than stated age, not responsive, difficult to arouse SKIN: Skin abrasion on patient's back, with healed scar, no signs of active infection, no drainage ENT: Moist mucous membranes, neck is supple, no JVD LUNGS: Clear to auscultation bilaterally. HEART: Normal S1, S2 present. No murmurs, no rubs, no gallops ABDOMEN: Soft. No masses. TRUNK/SPINE:Straight. EXTREMITIES: No edema, no deformities, dry skin PULSES: 2+ upper and lower extremity . Neuro: No focal neurological deficit LABORATORY DATA: See below. IMAGING: Chest x-ray: Pacemaker in place. Mildly enlarged heart. Otherwise no acute disease. CT xray: Small-vessel ischemic disease. Moderate volume loss. MICROBIOLOGY: Please see below. ASSESSMENT: Patient is a 83-year-old male presenting for altered mental status, weakness, poor by mouth intake, sleepiness, lethargic. He has a past medical history of status post pacemaker, A. fib, hypothyroidism, prostate cancer and dementia. He was unable to provide history. History was primarily obtained from patient's and son. She'll labs and imaging was negative for UA, chest x-ray was normal, CT was also negative for hemorrhage. He'll be admitted for altered mental status, with continues work up. # Altered mental status, etiology unknown, differential diagnosis include dehydration, toxin exposure, medication interactions, TIA, infection -Urinalysis was negative for infection, -Toxicology was negative for opiates, methadone, barbiturates, PCP, amphetamines, benzodiazepine, cocaine, cannabis -Blood cultures pending -He is afebrile, non-tachycardic, not hypotensive -No focal neurologic deficit - MRI brain, MRA brain, duplex carotid ultrasound #Hypernatremia, 2/2 to dehydration, 2/2 secondary to poor by mouth intake -Patient received 500 mL of IV fluid bolus in the ED -Free water deficient of 5.2 liters -Continue with gentle IV hydration -Hold Lasix -Monitor kidney function #Acute kidney injury 2/2 dehydration, Continue with gentle IV hydration -Hold Lasix #A. fib -INR is supratherapeutic, hold warfarin. Patient is not bleeding, monitor for bleeding. Consider restarting warfarin once patient's INR become subtherapeutic. Vitamin K given, repeat INR in AM, monitor for bleeding -Echocardiogram dated and 06/02/2016 1. Mitral valve prolapse involving the anterior mitral leaflets. Associated with moderate-severe mitral regurgitation. Mild mitral annual calcification. 2. Mild aortic valve sclerosis of a three-cuspid aortic valve. No aortic stenosis or aortic regurgitation. Several small low density 1 mm masses in association with aortic valve, most likely due to degenerative changes, but differential diagnosis would infective endocarditis. 3. Normal left ventricular, wall motion and systolic function. 4. At last moderate left atrial dilations by visual assessment. 5. Mild atheroma involving the distal aortic arch and descending thoracic aorta. -Repeat echo pending Elevated Troponin - likely due to dehydration -Unlikey to [place], no ST elevation -Repeat was lower than presenting. will repeat tomorrow AM #Hypothyroidism --Continue home medication #DVT -Warfarin Vital Signs Vital Signs Date Time Temp Pulse Resp B/P (MAP) Pulse Ox O2 Delivery O2 Flow Rate FiO2 07/14/18 16:45 74 124/74 (91) 98 Room Air 07/14/18 16:00 20 07/14/18 15:50 98.2 Laboratory Data Labs 24H Laboratory Tests 2 07/14/18 13:38: Immature Granulocyte % (Auto) 0.4, White Blood Count 9.5, Red Blood Count 5.35, Hemoglobin 16.3, Hematocrit 53.3H, Mean Corpuscular Volume 99.6H, Mean Corpuscular Hemoglobin 30.5, Mean Corpuscular Hemoglobin Concent 30.6L, Red Cell Distribution Width 16.0H, Platelet Count 228, Neutrophils (%) (Auto) 82.2H, Lymphocytes (%) (Auto) 11.6L, Monocytes (%) (Auto) 5.2H, Eosinophils (%) (Auto) 0.4, Basophils (%) (Auto) 0.2, Neutrophils # (Auto) 7.8H, Lymphocytes # (Auto) 1.1L, Monocytes # (Auto) 0.5, Eosinophils # (Auto) 0.0, Basophils # (Auto) 0.0, Nucleated Red Blood Cells % (auto) 0.0, Anion Gap 11, Glomerular Filtration Rate 22.3L, Calcium Level 9.7, Aspartate Amino Transf (AST/SGOT) 39H, Alanine Aminotransferase (ALT/SGPT) 29, Alkaline Phosphatase 72, Total Bilirubin 1.0, Direct Bilirubin 0.4H, Total Creatine Kinase 182, Creatine Kinase MB 8.0H, Creatine Kinase MB Relative Index 4.12H, Troponin I 0.19H, Total Protein 7.0, Albumin 3.9, Albumin/Globulin Ratio 1.26, Thyroid Stimulating Hormone (TSH) 1.600, Ethyl Alcohol Level < 0.003 07/14/18 14:17: Urine Color YELLOW, Urine Appearance HAZY, Urine pH 5.0, Urine Specific [place] 1.016, Urine Protein NEGATIVE, Urine Glucose (UA) NEGATIVE, Urine Ketones NEGATIVE, Urine Blood NEGATIVE, Urine Nitrite NEGATIVE, Urine Bilirubin NEGATIVE, Urine Urobilinogen 0.2, Urine Leukocyte Esterase NEGATIVE, Urine WBC (Auto) 3, Urine RBC (Auto) 3, Urine Hyaline Casts (Auto) 25, Urine Bacteria (Auto) NEGATIVE, Urine Squamous Epithelial Cells 0, Urine Mucus (Auto) SMALL, Urine Sperm (Auto) , Urine Amphetamines Screen NEGATIVE, Urine Benzodiazepines Screen NEGATIVE, Urine Opiates Screen NEGATIVE, Urine Methadone Screen NEGATIVE, Urine Barbiturates Screen NEGATIVE, Urine Phencyclidine Screen NEGATIVE, Urine Cocaine Metabolite Screen NEGATIVE, Urine Cannabinoids Screen NEGATIVE 07/14/18 15:13: Total Creatine Kinase 260, Creatine Kinase MB 11.0H, Creatine Kinase MB Relative Index 4.12H, Troponin I 0.17H CBC/BMP Laboratory Tests 07/14/18 13:38 Red Blood Count 5.35, Mean Corpuscular Volume 99.6 H, Mean Corpuscular Hemoglobin 30.5, Mean Corpuscular Hemoglobin Concent 30.6 L, Red Cell Distribution Width 16.0 H, Neutrophils (%) (Auto) 82.2 H, Lymphocytes (%) (Auto) 11.6 L, Monocytes (%) (Auto) 5.2 H, Eosinophils (%) (Auto) 0.4, Basophils (%) (Auto) 0.2, Neutrophils # (Auto) 7.8 H, Lymphocytes # (Auto) 1.1 L, Monocytes # (Auto) 0.5, Eosinophils # (Auto) 0.0, Basophils # (Auto) 0.0 Home Medications Scheduled Furosemide (Lasix) 20 Mg Tab, 20 MG PO QHS Levothyroxine Sodium (Synthroid) 125 Mcg Tab, 62.5 MCG PO QHS Potassium Chloride (Potassium Chloride ER) 10 Meq Tab, 10 MEQ PO QHS Quetiapine Fumerate (Quetiapine Fumarate) 25 Mg Tab, 25 MG PO QHS Simvastatin (Simvastatin) 20 Mg Tab, 20 MG PO QHS Warfarin Sod (Warfarin Sodium) 1 Mg Tab, 1.5 MG PO 5XW TUES,THURS,FRI,SAT,SUN Warfarin Sod (Warfarin Sodium) 1 Mg Tab, 2.5 MG PO 2XWK MON,WED Scheduled PRN Acetaminophen (Apap) 325 Mg Tab, 650 MG PO Q4H PRN for PAIN Allergies Coded Allergies: No Known Drug Allergy (Verified Allergy, Unknown, 06/16/18) GME ATTESTATION GME ATTESTATION My faculty preceptor for this patient encounter was physically present during the encounter and was fully available. All aspects of the patient interview, examination, medical decision making process, and medical care plan development were reviewed and approved by the faculty preceptor. The faculty preceptor is aware and concurs with the plan as stated in the body of this note and will attest to such by his/her cosignature. CASSI RANGEL DO Jul 14, 2018 18:02
[2018-07-14 19:22] LABS: PROTHROMBIN TIME 101.5 SECONDS (12.1-14.4)
[2018-07-14 19:26] LABS: INR 12.95
[2018-07-14] MEDS ORDERED: PHYTONADIONE 2.5 MG **1/2 TAB PO ONE (20:00)
[2018-07-14] MEDS: PANTOPRAZOLE 40MG INJ (PROTONIX) (C9113) IV SCH (20:07)
[2018-07-14] MEDS ORDERED: LEVOTHYROXINE 125MCG TABLET (0.125MG) PO SCH (21:00)
[2018-07-14] MEDS ORDERED: SIMVASTATIN 20 MG TAB PO SCH (21:00)
[2018-07-14] MEDS ORDERED: POTASSIUM CHLORIDE 10 MEQ SR TABLET PO SCH (21:00)
[2018-07-14] MEDS ORDERED: ONDANSETRON 4MG/2ML VIAL (J2405) IV PRN (21:00)
[2018-07-14] MEDS ORDERED: QUEtiapine FUMARATE 25 MG TAB PO SCH (21:00)
--- NOTE | 2018-07-14 21:00 | ECGEPIP ---
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
[2018-07-14] MEDS ORDERED: HALOPERIDOL 5 MG/ML VIAL (J1630) IM PRN (21:30)
[2018-07-14] MEDS ORDERED: HEPARIN SOD (PORCINE) 5000 UNITS/ML VIAL SC SCH (22:00)
[2018-07-14] MEDS ORDERED: diphenhydrAMINE INJ 50MG/ML VIAL (J1200) IM STA (22:10)
[2018-07-14] MEDS ORDERED: HALOPERIDOL 5 MG/ML VIAL (J1630) IM STA (22:10)
[2018-07-15] MEDS: LEVOTHYROXINE 100 MCG (0.1MG) VIAL IV SCH ×2 (00:46→10:03)
[2018-07-15] MEDS ORDERED: diphenhydrAMINE INJ 50MG/ML VIAL (J1200) IV ONE (03:00)
[2018-07-15] MEDS ORDERED: HALOPERIDOL 5 MG/ML VIAL (J1630) IV ONE (03:00)
[2018-07-15] MEDS: NS 1,000 ML IV SCH (05:30)
[2018-07-15] MEDS ORDERED: PHYTONADIONE 10MG/ML INJECTION (J3430) SC ONE (05:30)
[2018-07-15 05:57] VITALS: BP 136/71
[2018-07-15 07:15] LABS: HEMATOCRIT 45.7 % (42.0-52.0); MEAN CORPUSCULAR HEMOGLOBIN 30.3 pg (27.0-33.0); MEAN CORPUSCULAR HGB CONC 30.9 g/dl (32.0-36.5); MEAN CORPUSCULAR VOLUME 98.3 fl (80.0-96.0); PLATELET COUNT, AUTOMATED 156 10^3/uL (150-450); RED BLOOD COUNT 4.65 10^6/uL (4.30-6.10); WHITE BLOOD COUNT 9.6 10^3/uL (4.0-10.0)
[2018-07-15 07:22] LABS: HEMOGLOBIN 14.1 g/dl (13.5-17.5)
[2018-07-15 07:33] LABS: PROTHROMBIN TIME 100.1 SECONDS (12.1-14.4)
[2018-07-15 07:39] LABS: INR 12.72
[2018-07-15 07:44] LABS: ALBUMIN 3.4 GM/DL (3.2-5.2); BILIRUBIN,DIRECT 0.3 MG/DL (0.0-0.2); BILIRUBIN,TOTAL 0.7 MG/DL (0.2-1.0); CALCIUM LEVEL 8.8 MG/DL (8.8-10.2); CREATININE FOR GFR 2.35 MG/DL (0.70-1.30); GLOMERULAR FILTRATION RATE 28.5 (>35); POTASSIUM SERUM 3.5 MEQ/L (3.5-5.1); TROPONIN I 0.27 NG/ML (< 0.10)
[2018-07-15 08:00] VITALS: BP 134/62
[2018-07-15] MEDS ORDERED: D5W/0.9% SODIUM CHLORIDE 1,000 ML IV SCH (08:15)
--- NOTE | 2018-07-15 09:26 | REP ---
DUPLEX CAROTID SONOGRAPHY: HISTORY: TIA. FINDINGS: Neither vertebral artery flow could be documented. RIGHT CAROTID: The right common carotid artery shows diffuse intimal thickening. Exam quality is limited by patient motion and inability to cooperate but there is severe mixed plaquing in the bulb, proximal ICA, and proximal ECA on the right side. Color flow and spectral Doppler interrogation show normal velocities and waveforms. Velocity Chart Right Carotid: PSV EDV Right CCA 57 cm/s Right ICA 85 cm/s 15 cm/s Right ECA 68 cm/s Right ICA/CCA ratio of 1.5. IMPRESSION: 50 to 79% category narrowing in the right ICA. Extensive mixed plaquing. Scan quality is somewhat inhibited by patient motion. LEFT CAROTID: The left common carotid artery shows diffuse intimal thickening. There is moderate mixed plaquing in the left carotid bulb and ICA. Scan quality is somewhat inhibited by patient inability to fully cooperate but waveforms and velocities are normal by Doppler in the ICA on the left side. Velocity Chart Left Carotid: PSA EDV Left CCA 78 cm/s Left ICA 67 cm/s 12 cm/s Left ECA 37 cm/s Left ICA/CCA ratio normal 0.9. IMPRESSION: 16-49% category narrowing in the left ICA by Doppler velocity criteria. Moderate plaquing. Electronically Signed by Ryne Pa MD 07/15/2018 03:27 P
--- NOTE | 2018-07-15 11:24 | IPNPDOC ---
Text Note Date of Service The patient was seen on 07/15/18. NOTE Subjective: Patient was examined at beside. He as lethargic and minimally resp onsive. He doesn't appear to be in distress PHYSICAL EXAMINATION: VITAL SIGNS: See below GENERAL APPEARANCE: lethargic, elderly gentleman, appears older than stated age, minimal responsive, SKIN: warm, no fever ENT: No JVD, oral mucosa is moist LUNGS: Clear to auscultation bilaterally. HEART: Normal S1, S2 present and normal EXTREMITIES: No edema, no deformities, dry skin PULSES: 2+ upper and lower extremity Carotid US: 50 to 79% category narrowing in the right ICA. Extensive mixed plaquing. Scan quality is somewhat inhibited by patient motion 16-49% category narrowing in the left ICA by Doppler velocity criteria. Moderate plaquing. ASSESSMENT: Patient is a 83-year-old male presenting for altered mental status, weakness, poor by mouth intake, sleepiness, lethargic. He has a past medical history of status post pacemaker, A. fib, hypothyroidism, prostate cancer and dementia. He was unable to provide history. History was primarily obtained from patient's and son. She'll labs and imaging was negative for UA, chest x-ray was normal, CT was also negative for hemorrhage. He'll be admitted for altered mental status. # Hypernatremia 2/2 to dehydration, 2/2 secondary to poor by mouth intake -Fluid deficit is 5.2 L -Started D5 at 75 ml/h. BMP Q4H. Plan to decrease Sodium by less than 10 per day -Hold Lasix # Altered mental status, etiology unknown, differential diagnosis include dehydration, toxin exposure, medication interactions, TIA, infection, hypernatremia -Urinalysis was negative for infection, -Toxicology was negative for opiates, methadone, barbiturates, PCP, amphetamines, benzodiazepine, cocaine, cannabis -Blood cultures pending -He is afebrile, nontachycardic, not hypotensive -No focal neurologic deficit - MRI brain, MRA brain pending 2/2 Acute kidney injury, -Dehydration -Will monitor kidney function while correcting hypernatremia #A. fib -INR is supratherapeutic, hold warfarin. Patient is not bleeding, monitor for bleeding. Consider restarting warfarin once patient's INR become subtherapeutic. Vitamin K given, repeat INR in AM, monitor for bleeding -Echocardiogram dated and 06/02/2016 1. Mitral valve prolapse involving the anterior mitral leaflets. Associated with moderate-severe mitral regurgitation. Mild mitral annual calcification. 2. Mild aortic valve sclerosis of a three-cuspid aortic valve. No aortic stenosis or aortic regurgitation. Several small low density 1 mm masses in association with aortic valve, most likely due to degenerative changes, but differential diagnosis would infective endocarditis. 3. Normal left ventricular, wall motion and systolic function. 4. At last moderate left atrial dilations by visual assessment. 5. Mild atheroma involving the distal aortic arch and descending thoracic aorta. -Repeat echo pending Elevated Troponin - likely due to dehydration - Was elevated this morning, repeat was lower. Will continue to trend -Unlikely to [place], no ST elevation #Hypothyroidism --Continue home medication #Supratherapeutic INR -Warfarin, hold, patient has been given 5 mg of subcutaneous vitamin K. Will repeat INR tomorrow #DVT - on hold Warfarin due to supratherapeutic levels VS,Hue, I+O VS, Hue, I+O Laboratory Tests 07/14/18 13:38 Red Blood Count 5.35, Mean Corpuscular Volume 99.6 H, Mean Corpuscular Hemoglobin 30.5, Mean Corpuscular Hemoglobin Concent 30.6 L, Red Cell Distribution Width 16.0 H, Neutrophils (%) (Auto) 82.2 H, Lymphocytes (%) (Auto) 11.6 L, Monocytes (%) (Auto) 5.2 H, Eosinophils (%) (Auto) 0.4, Basophils (%) (Auto) 0.2, Neutrophils # (Auto) 7.8 H, Lymphocytes # (Auto) 1.1 L, Monocytes # (Auto) 0.5, Eosinophils # (Auto) 0.0, Basophils # (Auto) 0.0 07/15/18 06:47 07/15/18 06:56 Red Blood Count 4.65, Mean Corpuscular Volume 98.3 H, Mean Corpuscular Hemoglobin 30.3, Mean Corpuscular Hemoglobin Concent 30.9 L, Red Cell Distribution Width 15.9 H Vital Signs Date Time Temp Pulse Resp B/P (MAP) Pulse Ox O2 Delivery O2 Flow Rate FiO2 07/15/18 08:00 98.2 80 16 134/62 (86) 98 07/14/18 18:01 Room Air I&O- Last 24 Hours up to 6 AM 07/15/18 05:59 Intake Total 1000 ml Output Total 100 ml Balance 900 ml GME ATTESTATION GME ATTESTATION My faculty preceptor for this patient encounter was physically present during the encounter and was fully available. All aspects of the patient interview, examination, medical decision making process, and medical care plan development were reviewed and approved by the faculty preceptor. The faculty preceptor is aware and concurs with the plan as stated in the body of this note and will attest to such by his/her cosignature. CASSI RANGEL DO Jul 15, 2018 11:24
[2018-07-15 11:49] LABS: CREATININE FOR GFR 2.22 MG/DL (0.70-1.30); GLOMERULAR FILTRATION RATE 30.4 (>35); POTASSIUM SERUM 3.2 MEQ/L (3.5-5.1)
[2018-07-15 11:50] LABS: CALCIUM LEVEL 8.2 MG/DL (8.8-10.2)
[2018-07-15] MEDS ORDERED: D5W/LR 1,000 ML IV SCH (12:00)
[2018-07-15 12:23] VITALS: BP 142/72
[2018-07-15] MEDS ORDERED: KCL 10MEQ/100ML SWI (KRUN) 10 MEQ in APPROPRIATE DILUENT 1 EA IV ONE ×4 (12:30)
[2018-07-15] MEDS: D5W 1,000 ML IV SCH (13:03)
[2018-07-15] MEDS: KCL 10MEQ/100ML SWI (KRUN) 10 MEQ in APPROPRIATE DILUENT 1 EA IV SCH ×3 (13:03→18:35)
[2018-07-15 15:28] LABS: CALCIUM LEVEL 8.9 MG/DL (8.8-10.2); CREATININE FOR GFR 2.32 MG/DL (0.70-1.30); GLOMERULAR FILTRATION RATE 28.9 (>35); POTASSIUM SERUM 3.6 MEQ/L (3.5-5.1)
[2018-07-15 16:00] VITALS: BP 128/68
[2018-07-15 17:00] VITALS: BP 132/73
[2018-07-15] MEDS ORDERED: KCL 10MEQ IN STERILE WATER 100ML As Ordered ONE (18:27)
[2018-07-15] MEDS: PANTOPRAZOLE 40MG INJ (PROTONIX) (C9113) IV SCH (20:29)
[2018-07-15 20:46] LABS: CALCIUM LEVEL 8.3 MG/DL (8.8-10.2); CREATININE FOR GFR 2.29 MG/DL (0.70-1.30); GLOMERULAR FILTRATION RATE 29.3 (>35); TROPONIN I 0.23 NG/ML (< 0.10)
[2018-07-15 22:00] VITALS: BP 147/70
[2018-07-16 01:07] LABS: CALCIUM LEVEL 8.4 MG/DL (8.8-10.2); CREATININE FOR GFR 2.06 MG/DL (0.70-1.30); GLOMERULAR FILTRATION RATE 33.2 (>35); POTASSIUM SERUM 3.7 MEQ/L (3.5-5.1); TROPONIN I 0.25 NG/ML (< 0.10)
[2018-07-16 04:47] LABS: INR 2.87; PROTHROMBIN TIME 30.7 SECONDS (12.1-14.4)
[2018-07-16 05:00] LABS: CALCIUM LEVEL 8.1 MG/DL (8.8-10.2); CREATININE FOR GFR 1.87 MG/DL (0.70-1.30); GLOMERULAR FILTRATION RATE 37.1 (>35); POTASSIUM SERUM 3.5 MEQ/L (3.5-5.1)
[2018-07-16 06:00] VITALS: BP 127/73
[2018-07-16] MEDS: D5W 1,000 ML IV SCH ×2 (06:19→13:47)
[2018-07-16 07:24] LABS: CALCIUM LEVEL 8.5 MG/DL (8.8-10.2); CREATININE FOR GFR 1.97 MG/DL (0.70-1.30); GLOMERULAR FILTRATION RATE 34.9 (>35); POTASSIUM SERUM 4.2 MEQ/L (3.5-5.1); TROPONIN I 0.24 NG/ML (< 0.10)
[2018-07-16] MEDS: LEVOTHYROXINE 100 MCG (0.1MG) VIAL IV SCH (09:42)
--- NOTE | 2018-07-16 09:46 | IPNPDOC ---
Text Note Date of Service The patient was seen on 07/16/18. NOTE Subjective: Patient was examined at bedside. He was minimally responsive. He d enies any pain. PHYSICAL EXAMINATION: VITAL SIGNS: See below GENERAL APPEARANCE: [place] responsive, able to follow commands ENT: No JVD, oral mucosa is somewhat dry, but pt has ongoing silava production LUNGS: Clear to auscultation bilaterally. HEART: Normal S1, S2, no murmurs EXTREMITIES: No edema, no deformities, dry skin PULSES: 2+ upper and lower extremity NEURRO: 5/5 face man strength ASSESSMENT: Patient is a 83-year-old male presenting for altered mental status, weakness, poor by mouth intake, sleepiness, lethargic. He has a past medical history of status post pacemaker, A. fib, hypothyroidism, prostate cancer and dementia. He was unable to provide history. History was primarily obtained from patient's and son. She'll labs and imaging was negative for UA, chest x-ray was normal, CT was also negative for hemorrhage. He'll be admitted for altered mental status. # Metabolic encephalopathy secondary to dehydration secondary to hyponatremia -Fluid deficit is 5.2 L on presentation -Increase D5 at from 75 to 100 ml/h. BMP Q4H. Plan to decrease Sodium by less than 10 per day ---- This AM Na is 161 at. This is a decrease by 5 in 19 hours. Have increase rate of dexrtrose solution rate -Urinalysis was negative for infection, -Toxicology was negative for opiates, methadone, barbiturates, PCP, amphetamines, benzodiazepine, cocaine, cannabis -Blood cultures no growth -He is afebrile, nontachycardic, not hypotensive -No focal neurologic deficit -Has been known to become agitated at night -Has one on one sitter #Questionable TIA on presentation -Pending MRI, MRA 2/2 Acute kidney injury, -Dehydration -Will monitor kidney function while correcting hypernatremia -Kidney function continues to improve #A. fib -INR is supratherapeutic, hold warfarin. Patient is not bleeding, monitor for bleeding. Consider restarting warfarin once patient's INR become subtherapeutic. Vitamin K given, repeat INR in AM, monitor for bleeding -Echocardiogram dated and 06/02/2016 1. Mitral valve prolapse involving the anterior mitral leaflets. Associated with moderate-severe mitral regurgitation. Mild mitral annual calcification. 2. Mild aortic valve sclerosis of a three-cuspid aortic valve. No aortic stenosis or aortic regurgitation. Several small low density 1 mm masses in association with aortic valve, most likely due to degenerative changes, but differential diagnosis would infective endocarditis. 3. Normal left ventricular, wall motion and systolic function. 4. At last moderate left atrial dilations by visual assessment. 5. Mild atheroma involving the distal aortic arch and descending thoracic aorta. -Repeat echo pending Elevated Troponin - likely due to dehydration -Unlikely to [place], no ST elevation -Continues to trend down #Hypothyroidism --Continue home medication #INR this AM is 2.87 -Restart warfarin tomorrow #DVT -Warfarin is therapeutic level. Restart warfarin tomorrow VS,Fishbone, I+O VS, Fishbone, I+O Laboratory Tests 07/15/18 11:17 Calcium Level 8.2 L 07/15/18 15:00 Calcium Level 8.9 07/15/18 20:10 Calcium Level 8.3 L 07/16/18 00:32 Calcium Level 8.4 L 07/16/18 03:56 Calcium Level 8.1 L Vital Signs Date Time Temp Pulse Resp B/P (MAP) Pulse Ox O2 Delivery O2 Flow Rate FiO2 07/16/18 06:00 97.4 72 15 127/73 (91) 97 07/14/18 18:01 Room Air I&O- Last 24 Hours up to 6 AM 07/16/18 06:00 Intake Total 1100 ml Output Total 0 ml Balance 1100 ml GME ATTESTATION GME ATTESTATION My faculty preceptor for this patient encounter was physically present during the encounter and was fully available. All aspects of the patient interview, examination, medical decision making process, and medical care plan development were reviewed and approved by the faculty preceptor. The faculty preceptor is aware and concurs with the plan as stated in the body of this note and will attest to such by his/her cosignature. CASSI RANGEL DO Jul 16, 2018 07:36
[2018-07-16 11:38] LABS: CALCIUM LEVEL 8.4 MG/DL (8.8-10.2); CREATININE FOR GFR 1.89 MG/DL (0.70-1.30); GLOMERULAR FILTRATION RATE 36.6 (>35); POTASSIUM SERUM 3.9 MEQ/L (3.5-5.1)
[2018-07-16 14:00] VITALS: BP 145/81
[2018-07-16 20:18] LABS: CALCIUM LEVEL 8.1 MG/DL (8.8-10.2); CREATININE FOR GFR 1.75 MG/DL (0.70-1.30); POTASSIUM SERUM 4.4 MEQ/L (3.5-5.1)
[2018-07-16] MEDS: PANTOPRAZOLE 40MG INJ (PROTONIX) (C9113) IV SCH (20:35)
[2018-07-16 22:00] VITALS: BP 116/58
[2018-07-17] MEDS: D5W 1,000 ML IV SCH ×3 (00:48→22:09)
[2018-07-17 01:52] LABS: CALCIUM LEVEL 8.3 MG/DL (8.8-10.2); CREATININE FOR GFR 1.62 MG/DL (0.70-1.30); GLOMERULAR FILTRATION RATE 43.8 (>35); POTASSIUM SERUM 4.5 MEQ/L (3.5-5.1)
[2018-07-17 06:00] VITALS: BP 147/82
[2018-07-17 06:31] LABS: HEMATOCRIT 44.4 % (42.0-52.0); HEMOGLOBIN 13.4 g/dl (13.5-17.5); MEAN CORPUSCULAR HGB CONC 30.2 g/dl (32.0-36.5); MEAN CORPUSCULAR VOLUME 99.3 fl (80.0-96.0); PLATELET COUNT, AUTOMATED 118 10^3/uL (150-450); RED BLOOD COUNT 4.47 10^6/uL (4.30-6.10); WHITE BLOOD COUNT 8.6 10^3/uL (4.0-10.0)
[2018-07-17 06:47] LABS: CREATININE FOR GFR 1.54 MG/DL (0.70-1.30); GLOMERULAR FILTRATION RATE 46.4 (>35); POTASSIUM SERUM 3.6 MEQ/L (3.5-5.1)
[2018-07-17] MEDS: LEVOTHYROXINE 100 MCG (0.1MG) VIAL IV SCH (09:34)
--- NOTE | 2018-07-17 12:33 | ECHO ---
DATE OF PROCEDURE: 07/15/2018 AGE: 83 GENDER: Male. REFERRING PHYSICIAN: Dr. Jesus INDICATION: Transient ischemic attack. MEASUREMENTS 2-D MEASUREMENTS: RV - 3.4 cm LV - 4.2 cm Septum 1.3 cm Posterior wall 1.3 cm Aortic root 3.2 cm LA - 4.5 cm LVEF 65% DOPPLER MEASUREMENTS: AV - 1.54 ms LVOT - 0.71 ms LVOT diameter 2.0 cm MV-E 96 Early mitral deceleration time 225 milliseconds E prime 9.1, E/E prime ratio 10.6 PCWP - 14.7 mmHg PV -- 0.78 ms Pulmonary acceleration time 74 ms RVSP -- 46 mmHg IVC - 1.7 cm COMMENTS: Underlying atrial fibrillation/flutter with consistent ventricular paced complexes. Paced QS complexes has an LVDD configuration. M-mode and two-dimensional echocardiography was performed with pulsed, continuous wave, color flow and tissue Doppler studies. Mild concentric left ventricle hypertrophy with localized septal wall motion abnormality due to right ventricular pacing, yet preserved global resting systolic function. Moderately dilated left atrium with current Doppler assessment of mean left atrial pressure upper limits of normal to slightly increased. Normal right ventricular size and motion with Doppler evidence of moderate pulmonary hypertension. At least mildly dilated right atrium but normal IVC size and collapse against an elevated central venous pressure at this time. Aortic valvular sclerosis without stenosis but premature cusp closure suggestive of reduced forward stroke volume. Trace insufficiency. Normal aortic root size. Mitral annular calcification with adequate leaflet excursion and no obvious posterior systolic buckling but at least moderate to moderately severe posteriorly directed insufficiency. Normal appearing tricuspid valve, yet moderate tricuspid insufficiency. Moderately severe to severe tricuspid insufficiency. Pacing lead peak could be visualized traversing right heart structures. No separate intracardiac mass. Small posterior pericardial effusion without evidence of cardiac compression.
--- NOTE | 2018-07-17 12:48 | IPNPDOC ---
Date Seen The patient was seen on 07/17/18. Progress Note Subjective: Patient is minimally responsive today he chooses to answer some questions yes or no masses feels in any pain is tells me that he feels all right he does turn to make eye contact is arousable to verbal stimuli but does not follow commands and does not have a full conversation with me he does not answer questions related to orientation. PHYSICAL EXAMINATION: VITAL SIGNS: See below GENERAL APPEARANCE: Frail elderly man laying in bed sleeping but arousable to verbal stimuli he does not appear to be in any acute distress ENT: No JVD he does not cooperate with cranial nerve testing LUNGS: Clear to auscultation bilaterally. He does not cooperate with respiratory exam HEART: Normal S1, S2, no murmurs EXTREMITIES: No edema, no deformities, ASSESSMENT: Patient is a 83-year-old male presenting for altered mental status # Metabolic encephalopathy secondary to dehydration secondary to hyponatremia -Fluid deficit is 5.2 L on presentation he did have acute kidney injury as well did improve with normal saline and now with D5 I suspect that as his sodium slowly and carefully normalizes his mental status will continue to improve as well as his renal function improves. He has a pacemaker was unable to undergo an MRI otherwise testing is fairly unremarkable. I will decrease the rate of 55 from 100-75. We have held his Lasix -Toxicology was negative for opiates, methadone, barbiturates, PCP, amphetamines, benzodiazepine, cocaine, cannabis -Blood cultures no growth -He is afebrile, nontachycardic, not hypotensive -Has been known to become agitated at night and does have when necessary Haldol which she has not utilized recently -Has one on one sitter -My suspicion for TIA is much lower #Acute kidney injury, -Secondary to Dehydration -Will monitor kidney function while correcting hypernatremia appears to be improving #A. fib -INR is supratherapeutic, hold warfarin. Monitor daily INR is P Consider restarting warfarin once patient's INR become subtherapeutic. Vitamin K given, -Repeat echo pending. The patient is rate controlled. He is status post pacer Elevated Troponin - likely due to dehydration -Unlikely to [place], no ST elevation -At last check was downtrending he denies any symptoms #Hypothyroidism -Continue home medication #History of colon cancer: Status post resection several years ago #Dyslipidemia: Continue with statin #DVT prophylaxis -Warfarin is therapeutic Disposition: The patient is too difficult for the family care for at home and suspect he would benefit from detention placement PFS greatly appreciated VS, I&O, 24H, Fishbone Vital Signs/I&O Vital Signs Date Time Temp Pulse Resp B/P (MAP) Pulse Ox O2 Delivery O2 Flow Rate FiO2 07/17/18 06:00 97.8 71 18 147/82 (103) 94 07/14/18 18:01 Room Air I&O- Last 24 Hours up to 6 AM 07/17/18 06:00 Intake Total 2340 ml Output Total 0 ml Balance 2340 ml Laboratory Data 24H LABS Laboratory Tests 2 07/16/18 19:29: Anion Gap 4L, Glomerular Filtration Rate 40.0, Blood Urea Nitrogen 38H, Creatinine 1.75H, Sodium Level 154H, Potassium Level 4.4, Chloride Level 124H, Carbon Dioxide Level 26, Calcium Level 8.1L 07/17/18 01:05: Anion Gap 4L, Glomerular Filtration Rate 43.8, Blood Urea Nitrogen 33H, Creatinine 1.62H, Sodium Level 155H, Potassium Level 4.5, Chloride Level 122H, Carbon Dioxide Level 29, Calcium Level 8.3L 07/17/18 05:46: Anion Gap 5L, Glomerular Filtration Rate 46.4, Blood Urea Nitrogen 30H, Creatinine 1.54H, Sodium Level 153H, Potassium Level 3.6, Chloride Level 118H, Carbon Dioxide Level 30, Calcium Level 8.0L, Nucleated Red Blood Cells % (auto) 0.0 CBC/BMP Laboratory Tests 07/16/18 19:29 Calcium Level 8.1 L 07/17/18 01:05 Calcium Level 8.3 L 07/17/18 05:46 Calcium Level 8.0 L, Red Blood Count 4.47, Mean Corpuscular Volume 99.3 H, Mean Corpuscular Hemoglobin 30.0, Mean Corpuscular Hemoglobin Concent 30.2 L, Red Cell Distribution Width 15.4 H Microbiology Microbiology 07/14/18 Blood Culture - Preliminary, Resulted No Growth after 48 hours. All Specime... 07/17/18 Stool Occult Blood ([facility]ARRA) - Final, Complete ROBERTO ONEAL MD Jul 17, 2018 12:48
[2018-07-17 14:00] VITALS: BP 126/79
[2018-07-17] MEDS: SIMVASTATIN 20 MG TAB PO SCH (20:22)
[2018-07-17] MEDS: QUEtiapine FUMARATE 25 MG TAB PO SCH (20:22)
[2018-07-17 22:00] VITALS: BP 145/68
[2018-07-18 06:00] VITALS: BP 91/53
[2018-07-18 06:14] LABS: HEMATOCRIT 41.7 % (42.0-52.0); HEMOGLOBIN 13.4 g/dl (13.5-17.5); MEAN CORPUSCULAR HEMOGLOBIN 30.3 pg (27.0-33.0); MEAN CORPUSCULAR HGB CONC 32.1 g/dl (32.0-36.5); MEAN CORPUSCULAR VOLUME 94.3 fl (80.0-96.0); PLATELET COUNT, AUTOMATED 116 10^3/uL (150-450); RED BLOOD COUNT 4.42 10^6/uL (4.30-6.10); WHITE BLOOD COUNT 7.9 10^3/uL (4.0-10.0)
[2018-07-18] MEDS: LEVOTHYROXINE 62.5MCG PER 1/2 TAB (0.0625MG) PO SCH (06:41)
[2018-07-18 06:43] LABS: BLOOD UREA NITROGEN 19 MG/DL (7-18); CALCIUM LEVEL 7.7 MG/DL (8.8-10.2); CARBON DIOXIDE LEVEL 27 MEQ/L (21-32); CHLORIDE LEVEL 114 MEQ/L (98-107); CREATININE FOR GFR 1.19 MG/DL (0.70-1.30); GLOMERULAR FILTRATION RATE > 60.0 (>35); GLUCOSE, FASTING 93 MG/DL (70-100); POTASSIUM SERUM 3.3 MEQ/L (3.5-5.1); SODIUM LEVEL 147 MEQ/L (136-145)
[2018-07-18 06:45] LABS: INR 1.12; PROTHROMBIN TIME 14.6 SECONDS (12.1-14.4)
--- NOTE | 2018-07-18 07:45 | REP ---
CT BRAIN WITHOUT IV CONTRAST: CT brain performed without IV contrast. COMPARISON: 07/14/2018 There is again moderate atrophy. There is extensive periventricular small vessel ischemic changes. No definite new abnormal density is seen in the brain. There is no midline shift or mass effect. There is no acute hemorrhage or extra-axial fluid collection. Vascular calcifications are seen in the carotid siphons. There is a new small amount of fluid in the posterior left sphenoid sinus. IMPRESSION: No new intracranial findings. No acute hemorrhage, midline shift, or mass effect. New mild fluid in the left sphenoid sinus. Electronically Signed by Azar Francis MD 07/18/2018 10:32 P
[2018-07-18 08:58] VITALS: BP 118/72
[2018-07-18] MEDS ORDERED: D5W/0.9% SODIUM CHLORIDE 1,000 ML IV SCH (10:30)
--- NOTE | 2018-07-18 10:42 | IPNPDOC ---
Text Note Date of Service The patient was seen on 07/18/18. NOTE Subjective: Patient was examined at bedside. He was very difficult to arose. Nursing staff reports that he is more active during the later half of the days. He had no events overnight, remains afebrile. . An order was placed for out of bed with assistance from meals. To Encourage patient to move PHYSICAL EXAMINATION: VITAL SIGNS: See below GENERAL APPEARANCE: Elderly, gentleman, resting bed, no apparent distress, very difficult to arouse, no facial grimacing for pain ENT: No JVD, oral mucosa is moist LUNGS: Clear to auscultation bilaterally. Patient is unable to cooperate with exam HEART: Normal S1, S2, no murmurs EXTREMITIES: No edema, no deformities, ASSESSMENT: Patient is a 83-year-old male presenting for altered mental status # Metabolic encephalopathy secondary to dehydration secondary to hyponatremia -Patient's sodium is currently at 147, his mentation has not improved. Change his fluids to D5 normal saline at 50 mL per hour -C/w holding of lasix -Toxicology was negative for opiates, methadone, barbiturates, PCP, amphetamines, benzodiazepine, cocaine, cannabis -Blood cultures no growth -He is afebrile, nontachycardic, not hypotensive -Has been known to become agitated at night and does have when necessary Haldol which she has not utilized recently. c/w sitter -Low suspicion for TIA #Acute kidney injury, -Secondary to Dehydration -Improving, continue monitor with hydration #A. fib -Patient presented with supratherapeutic INR levels. INR was held. Vitamin K was given. -Restart warfarin on 07/18/18 ( check INR on 07/20/18) Elevated Troponin - likely due to dehydration -Unlikely to [place], no ST elevation -At last check was downtrending he denies any symptoms #Hypothyroidism -Continue home medication #History of colon cancer: Status post resection several years ago #Dyslipidemia: Continue with statin #DVT prophylaxis -Warfarin restarted Disposition: The patient is too difficult for the family care for at home and suspect he would benefit from fpc placement PFS greatly appreciated VS,Fishbone, I+O VS, Fishbone, I+O Laboratory Tests 07/18/18 05:54 Red Blood Count 4.42, Mean Corpuscular Volume 94.3, Mean Corpuscular Hemoglobin 30.3, Mean Corpuscular Hemoglobin Concent 32.1, Red Cell Distribution Width 15.1 H, Calcium Level 7.7 L Vital Signs Date Time Temp Pulse Resp B/P (MAP) Pulse Ox O2 Delivery O2 Flow Rate FiO2 07/18/18 06:00 97.4 78 16 91/53 (66) 98 07/14/18 18:01 Room Air I&O- Last 24 Hours up to 6 AM 07/18/18 06:00 Intake Total 1902.5 ml Output Total 0 ml Balance 1902.5 ml GME ATTESTATION GME ATTESTATION My faculty preceptor for this patient encounter was physically present during the encounter and was fully available. All aspects of the patient interview, examination, medical decision making process, and medical care plan development were reviewed and approved by the faculty preceptor. The faculty preceptor is aware and concurs with the plan as stated in the body of this note and will attest to such by his/her cosignature. CASSI RANGEL DO Jul 18, 2018 07:32
[2018-07-18] MEDS ORDERED: WARFARIN SOD 2.5 MG TAB PO SCH (17:00)
[2018-07-18] MEDS: WARFARIN SOD 2.5 MG TAB PO SCH (17:15)
[2018-07-18 22:00] VITALS: BP 110/58
[2018-07-18] MEDS: QUEtiapine FUMARATE 25 MG TAB PO SCH (22:31)
[2018-07-18] MEDS: SIMVASTATIN 20 MG TAB PO SCH (22:31)
[2018-07-19] MEDS: LEVOTHYROXINE 62.5MCG PER 1/2 TAB (0.0625MG) PO SCH (05:53)
[2018-07-19 06:00] VITALS: BP 125/59
[2018-07-19 06:58] LABS: HEMATOCRIT 39.6 % (42.0-52.0); HEMOGLOBIN 12.7 g/dl (13.5-17.5); MEAN CORPUSCULAR HEMOGLOBIN 30.3 pg (27.0-33.0); MEAN CORPUSCULAR HGB CONC 32.1 g/dl (32.0-36.5); MEAN CORPUSCULAR VOLUME 94.5 fl (80.0-96.0); RED BLOOD COUNT 4.19 10^6/uL (4.30-6.10); WHITE BLOOD COUNT 7.3 10^3/uL (4.0-10.0)
[2018-07-19 07:10] LABS: INR 1.25; PROTHROMBIN TIME 15.8 SECONDS (12.1-14.4)
[2018-07-19 07:18] LABS: BLOOD UREA NITROGEN 16 MG/DL (7-18); CARBON DIOXIDE LEVEL 27 MEQ/L (21-32); CHLORIDE LEVEL 117 MEQ/L (98-107); CREATININE FOR GFR 1.02 MG/DL (0.70-1.30); GLOMERULAR FILTRATION RATE > 60.0 (>35); GLUCOSE, FASTING 88 MG/DL (70-100); POTASSIUM SERUM 3.3 MEQ/L (3.5-5.1); SODIUM LEVEL 149 MEQ/L (136-145)
[2018-07-19 07:41] LABS: PLATELET COUNT, AUTOMATED 91 10^3/uL (150-450)
--- NOTE | 2018-07-19 08:53 | IPNPDOC ---
Text Note Date of Service The patient was seen on 07/19/18. NOTE Subjective: Patient was examined at bedside. He was only very minimally respo nsive. He did not follow commands. One on one observer reports that pt will occasionally talk to her. PT has also been able to get pt out of bed and ambulate him. According to pt his function has been declining. He can no longer feed himself, he is also incontinent with his urine, will leave the stove open and just walk away. He expressed concern that she is no longer able to take care of pt. He continues to be afebrile, no overnight activities reported. PHYSICAL EXAMINATION: VITAL SIGNS: See below GENERAL APPEARANCE: Elderly, gentleman, resting bed, no apparent distress, no facial grimacing for pain, does no follow commands, response to sternal rub ENT: No JVD LUNGS: Clear to auscultation bilaterally. Patient is unable to cooperate with exam HEART: Normal S1, S2, no murmurs EXTREMITIES: No edema, no deformities, no cyanosis ASSESSMENT: Patient is a 83-year-old male presenting for altered mental status # Metabolic encephalopathy secondary to dehydration secondary to hyponatremia -Patient's sodium is currently at 149, an increase from yesterday. He continues to be unresponsive on my exam, however he is able to work with PT and communicates on occasion with nursing staff. -Currently on 60 ml/hr of dextrose with 40 mEq of potassium, due to hypokalemia -C/w holding of lasix -Toxicology was negative for opiates, methadone, barbiturates, PCP, amphetamines, benzodiazepine, cocaine, cannabis -Blood cultures no growth -He is afebrile, nontachycardic, not hypotensive -Has been known to become agitated at night and does have when necessary Haldol which she has not utilized recently. c/w sitter -Low suspicion for TIA Hyperkalemia -Replaced #Acute kidney injury, Resolved #A. fib -Patient presented with supratherapeutic INR levels. INR was held. Vitamin K was given. -Restart warfarin on 07/18/18 -Continue to monitor Elevated Troponin - likely due to dehydration -Unlikely to [place], no ST elevation -At last check was downtrending he denies any symptoms #Hypothyroidism -TSH within normal limit -Continue home medication #History of colon cancer: Status post resection several years ago #Dyslipidemia: Continue with statin #DVT prophylaxis -Warfarin restarted Disposition: The patient is too difficult for the family care for at home and suspect he would benefit from penitentiary placement PFS greatly appreciated VS,[place], I+O VS, [place], I+O Laboratory Tests 07/19/18 05:49 Red Blood Count 4.19 L, Mean Corpuscular Volume 94.5, Mean Corpuscular Hemoglobin 30.3, Mean Corpuscular Hemoglobin Concent 32.1, Red Cell Distribution Width 15.5 H, Calcium Level 8.0 L Vital Signs Date Time Temp Pulse Resp B/P (MAP) Pulse Ox O2 Delivery O2 Flow Rate FiO2 07/19/18 06:00 97.3 73 16 125/59 (81) 98 07/14/18 18:01 Room Air I&O- Last 24 Hours up to 6 AM 07/19/18 06:00 Intake Total 1405 ml Output Total 0 ml Balance 1405 ml GME ATTESTATION GME ATTESTATION My faculty preceptor for this patient encounter was physically present during the encounter and was fully available. All aspects of the patient interview, examination, medical decision making process, and medical care plan development were reviewed and approved by the faculty preceptor. The faculty preceptor is aware and concurs with the plan as stated in the body of this note and will attest to such by his/her cosignature. ATTENDING NOTE I, Mary Kenyon, have both independently examined this patient as well as reviewed the documentation. I have discussed in detail with the resident the findings and plan of treatment as documented in the residents documentation. I will continue to follow the patient and offer further guidance to the patients care as necessary during this hospital stay. CASSI RANGEL DO Jul 19, 2018 08:53 MARY KENYON MD Jul 20, 2018 16:12
[2018-07-19] MEDS: POTASSIUM CHLORIDE INJ 40 MEQ in D5W 1,000 ML IV SCH (08:59)
[2018-07-19 12:47] LABS: BLOOD UREA NITROGEN 16 MG/DL (7-18); CALCIUM LEVEL 8.6 MG/DL (8.8-10.2); CARBON DIOXIDE LEVEL 28 MEQ/L (21-32); CHLORIDE LEVEL 116 MEQ/L (98-107); CREATININE FOR GFR 1.13 MG/DL (0.70-1.30); GLOMERULAR FILTRATION RATE > 60.0 (>35); GLUCOSE, FASTING 82 MG/DL (70-100); MAGNESIUM LEVEL 1.9 MG/DL (1.8-2.4); POTASSIUM SERUM 3.6 MEQ/L (3.5-5.1); SODIUM LEVEL 147 MEQ/L (136-145)
[2018-07-19 14:00] VITALS: BP 131/73
[2018-07-19] MEDS: WARFARIN SOD 3 MG TAB PO SCH (17:53)
[2018-07-19] MEDS: SIMVASTATIN 20 MG TAB PO SCH (21:12)
[2018-07-19] MEDS: QUEtiapine FUMARATE 25 MG TAB PO SCH (21:12)
[2018-07-19 22:00] VITALS: BP 141/77
[2018-07-20] MEDS: POTASSIUM CHLORIDE INJ 40 MEQ in D5W 1,000 ML IV SCH ×2 (05:07→19:11)
[2018-07-20 06:00] VITALS: BP 138/73
[2018-07-20] MEDS: LEVOTHYROXINE 62.5MCG PER 1/2 TAB (0.0625MG) PO SCH (06:00)
[2018-07-20 06:30] LABS: HEMATOCRIT 36.8 % (42.0-52.0); MEAN CORPUSCULAR HEMOGLOBIN 30.7 pg (27.0-33.0); MEAN CORPUSCULAR HGB CONC 32.6 g/dl (32.0-36.5); MEAN CORPUSCULAR VOLUME 94.1 fl (80.0-96.0); PLATELET COUNT, AUTOMATED 114 10^3/uL (150-450); RED BLOOD COUNT 3.91 10^6/uL (4.30-6.10); WHITE BLOOD COUNT 7.4 10^3/uL (4.0-10.0)
[2018-07-20 06:41] LABS: INR 1.52; PROTHROMBIN TIME 18.5 SECONDS (12.1-14.4)
[2018-07-20 06:50] LABS: BLOOD UREA NITROGEN 12 MG/DL (7-18); CALCIUM LEVEL 7.9 MG/DL (8.8-10.2); CARBON DIOXIDE LEVEL 27 MEQ/L (21-32); CHLORIDE LEVEL 113 MEQ/L (98-107); CREATININE FOR GFR 0.89 MG/DL (0.70-1.30); GLOMERULAR FILTRATION RATE > 60.0 (>35); GLUCOSE, FASTING 87 MG/DL (70-100); POTASSIUM SERUM 3.6 MEQ/L (3.5-5.1); SODIUM LEVEL 145 MEQ/L (136-145)
[2018-07-20 14:00] VITALS: BP 123/62
--- NOTE | 2018-07-20 16:12 | IPNPDOC ---
Text Note Date of Service The patient was seen on 07/20/18. NOTE Subjective: Patient was seen and examined at the bedside. Patient is nonverbal. Families present at bedside and I have addressed her questions and concerns. I have advised family that the patient has been having very poor oral intake and currently has been on IV fluid hydration for signs of dehydration. I have indicated to them that the patient has having poor oral intake, likely because of what we suspect his dementia. If this is the case patient will likely continue to experience recurrent dehydration. I have advised them that they need need to consider getting a PEG tube placement for feeding, if not, consideration for comfort measures. Objective: Vitals (See below) General: Lying in bed, no acute distress, comfortable, sleeping but awakable HEENT: NC, AT CVS: RRR, +S1S2 Lungs: Fair air entry b/l, -w/r/r Abdomen: Soft, ND, NT Extremities: - Edema, - Calf tenderness Assessment and plan: Acute metabolic encephalopathy - likely 2/2 progressive dementia - Patient's family is indicated that they are unable to care for methadone outpatient - Currently remains nonverbal for the majority of the day; however experiences episodes where he states non-comprehendible things - No focal neurologic deficits - Remains hemodynamically stable and afebrile - Toxicology negative - UA without evidence of infection - CXR 07/14: Pacemaker in place. Mildly enlarged heart. Otherwise no acute disease. - CT head 07/17: No new intracranial findings. No acute hemorrhage, midline shift, or mass effect. New mild fluid in the left sphenoid sinus. - Looking into long-term placement - Discussed with family about consideration for feeding tube versus possible comfort measures s/p Hypernatremia - likely 2/2 poor oral intake - likely 2/2 above - Sodium has been trending down - Will continue D5W s/p Hypokalemia - s/p supplementation s/p MARIA VICTORIA - likely 2/2 pre-renal etiology A. fib - Currently not on rate and rhythm control - INR approaching therapeutic range - c/w Coumadin Elevated troponin - likely 2/2 demand ischemia & MARIA VICTORIA - No chest pain - EKG 07/14: Paced rhythm - ECHO 07/17: moderate Pulm HTN, Preserved EF - Has remained stable DLP - c/w Simvastatin Hypothyroidism - c/w Levothyroxine Depression - c/w Quetiapine Hx of colon cancer - s/p resection DVT prophylaxis - c/w Warfarin Disposition: - Looking into NH placement - Consideration for PEG vs. WRISTER VS,Fishbone, I+O VS, Fishbone, I+O Laboratory Tests 07/20/18 05:56 Red Blood Count 3.91 L, Mean Corpuscular Volume 94.1, Mean Corpuscular Hemoglobin 30.7, Mean Corpuscular Hemoglobin Concent 32.6, Red Cell Distribution Width 15.2 H, Calcium Level 7.9 L Vital Signs Date Time Temp Pulse Resp B/P (MAP) Pulse Ox O2 Delivery O2 Flow Rate FiO2 07/20/18 06:00 97.6 77 16 138/73 (94) 95 07/14/18 18:01 Room Air I&O- Last 24 Hours up to 6 AM 07/20/18 06:00 Intake Total 2190 ml Output Total 150 ml Balance 2040 ml LEYDA KENYON MD Jul 20, 2018 16:12
[2018-07-20] MEDS: WARFARIN SOD 2.5 MG TAB PO SCH (16:39)
[2018-07-20] MEDS: SIMVASTATIN 20 MG TAB PO SCH (20:20)
[2018-07-20] MEDS: QUEtiapine FUMARATE 25 MG TAB PO SCH (20:20)
[2018-07-20 22:00] VITALS: BP 148/58
[2018-07-21] MEDS: LEVOTHYROXINE 62.5MCG PER 1/2 TAB (0.0625MG) PO SCH (05:48)
[2018-07-21 06:00] VITALS: BP 145/72
[2018-07-21 06:23] LABS: HEMATOCRIT 41.2 % (42.0-52.0); HEMOGLOBIN 13.1 g/dl (13.5-17.5); MEAN CORPUSCULAR HEMOGLOBIN 30.8 pg (27.0-33.0); MEAN CORPUSCULAR HGB CONC 31.8 g/dl (32.0-36.5); MEAN CORPUSCULAR VOLUME 96.7 fl (80.0-96.0); PLATELET COUNT, AUTOMATED 127 10^3/uL (150-450); RED BLOOD COUNT 4.26 10^6/uL (4.30-6.10); WHITE BLOOD COUNT 8.4 10^3/uL (4.0-10.0)
[2018-07-21 06:38] LABS: INR 1.72; PROTHROMBIN TIME 20.5 SECONDS (12.1-14.4)
[2018-07-21 06:50] LABS: BLOOD UREA NITROGEN 13 MG/DL (7-18); CALCIUM LEVEL 8.8 MG/DL (8.8-10.2); CARBON DIOXIDE LEVEL 27 MEQ/L (21-32); CHLORIDE LEVEL 110 MEQ/L (98-107); CREATININE FOR GFR 0.97 MG/DL (0.70-1.30); GLOMERULAR FILTRATION RATE > 60.0 (>35); GLUCOSE, FASTING 90 MG/DL (70-100); POTASSIUM SERUM 4.5 MEQ/L (3.5-5.1); SODIUM LEVEL 142 MEQ/L (136-145)
--- NOTE | 2018-07-21 08:54 | IPNPDOC ---
Text Note Date of Service The patient was seen on 07/21/18. NOTE Subjective: Patient was examined at bedside, he stated that he was feeling fine. He is able to respond to some question, but a majority of the time he just stares off into space. He did not appear to be any discomfort. He was being feed his breakfast and appeared to be tolerating it without difficulty. Although his overall P.O intake remains low. Objective: Vitals (See below) General: Lying in bed, awake, alert, minimal response to question, HEENT: no JVD, head is atraumatic, CVS: RRR, +S1S2 normal Lungs: clear to auscultation Abdomen: Soft, no distended, bowel sounds present Extremities: no edema, no cyanosis, no deformities Assessment and plan: Acute metabolic encephalopathy - likely 2/2 progressive dementia, less likely 2/2 infection - Patient's family is indicated that they are unable to care him at home - Currently remains nonverbal for the majority of the day; however experiences episodes where he states non-comprehendible things - No focal neurologic deficits - Remains hemodynamically stable and afebrile - Toxicology negative - Blood culture show no growth - UA without evidence of infection - CXR 07/14: Pacemaker in place. Mildly enlarged heart. Otherwise no acute disease. - CT head 07/17: No new intracranial findings. No acute hemorrhage, midline shift, or mass effect. New mild fluid in the left sphenoid sinus. - Looking into long-term placement - Decrease Seroquel to 12.5 qhs - Discussed with family about consideration for feeding tube versus possible comfort measures s/p Hypernatremia - likely 2/2 poor oral intake - likely 2/2 above - Sodium has been trending down - Will DC fluids s/p Hypokalemia - s/p supplementation - Stable s/p MARIA VICTORIA - likely 2/2 pre-renal etiology A. fib - Currently not on rate and rhythm control - INR approaching therapeutic range - c/w Coumadin Elevated troponin - likely 2/2 demand ischemia & MARIA VICTORIA - No chest pain - EKG 07/14: Paced rhythm - ECHO 07/17: moderate Pulm HTN, Preserved EF - Has remained stable DLP - c/w Simvastatin Hypothyroidism - c/w Levothyroxine Mood disorder - c/w Quetiapine; will reduce dose Hx of colon cancer - s/p resection DVT prophylaxis - c/w Warfarin Disposition: - Looking into NH placement - Consideration for PEG vs. 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; patient's family will be in to discuss further VS,Fishbone, I+O VS, Fishbone, I+O Laboratory Tests 07/21/18 05:53 Red Blood Count 4.26 L, Mean Corpuscular Volume 96.7 H, Mean Corpuscular Hemog lobin 30.8, Mean Corpuscular Hemoglobin Concent 31.8 L, Red Cell Distribution Width 15.3 H, Calcium Level 8.8 Vital Signs Date Time Temp Pulse Resp B/P (MAP) Pulse Ox O2 Delivery O2 Flow Rate FiO2 07/21/18 06:00 98.1 81 17 145/72 (96) 98 I&O- Last 24 Hours up to 6 AM 07/21/18 06:00 Intake Total 2020 ml Output Total 0 ml Balance 2020 ml GME ATTESTATION GME ATTESTATION My faculty preceptor for this patient encounter was physically present during the encounter and was fully available. All aspects of the patient interview, examination, medical decision making process, and medical care plan development were reviewed and approved by the faculty preceptor. The faculty preceptor is aware and concurs with the plan as stated in the body of this note and will attest to such by his/her cosignature. ATTENDING NOTE I, Mary Kenyon, have both independently examined this patient as well as reviewed the documentation. I have discussed in detail with the resident the findings and plan of treatment as documented in the residents documentation. I will continue to follow the patient and offer further guidance to the patients care as necessary during this hospital stay. CASSI RANGEL DO Jul 21, 2018 07:28 MARY KENYON MD Jul 21, 2018 12:31
[2018-07-21 14:00] VITALS: BP 131/69
[2018-07-21] MEDS: WARFARIN SOD 3 MG TAB PO SCH (17:44)
[2018-07-21] MEDS: QUEtiapine FUMARATE 12.5 MG HALF-TAB PO SCH (20:39)
[2018-07-21] MEDS: SIMVASTATIN 20 MG TAB PO SCH (20:40)
[2018-07-21 22:00] VITALS: BP 125/75
[2018-07-22 05:52] LABS: HEMATOCRIT 36.9 % (42.0-52.0); HEMOGLOBIN 11.9 g/dl (13.5-17.5); MEAN CORPUSCULAR HEMOGLOBIN 30.4 pg (27.0-33.0); MEAN CORPUSCULAR HGB CONC 32.2 g/dl (32.0-36.5); MEAN CORPUSCULAR VOLUME 94.1 fl (80.0-96.0); PLATELET COUNT, AUTOMATED 132 10^3/uL (150-450); RED BLOOD COUNT 3.92 10^6/uL (4.30-6.10); WHITE BLOOD COUNT 7.7 10^3/uL (4.0-10.0)
[2018-07-22 05:59] LABS: INR 1.82; PROTHROMBIN TIME 21.4 SECONDS (12.1-14.4)
[2018-07-22 06:00] VITALS: BP 125/76
[2018-07-22 06:12] LABS: BLOOD UREA NITROGEN 17 MG/DL (7-18); CALCIUM LEVEL 8.7 MG/DL (8.8-10.2); CARBON DIOXIDE LEVEL 26 MEQ/L (21-32); CHLORIDE LEVEL 111 MEQ/L (98-107); CREATININE FOR GFR 0.85 MG/DL (0.70-1.30); GLOMERULAR FILTRATION RATE > 60.0 (>35); GLUCOSE, FASTING 83 MG/DL (70-100); SODIUM LEVEL 143 MEQ/L (136-145)
[2018-07-22] MEDS: LEVOTHYROXINE 62.5MCG PER 1/2 TAB (0.0625MG) PO SCH (06:29)
--- NOTE | 2018-07-22 09:19 | IPNPDOC ---
Text Note Date of Service The patient was seen on 07/22/18. NOTE Subjective: Patient was examined at bedside. He continues to be nonresponsive. He will occasionally mumble a few noncoherent words. He does respond to painful stimuli. He was afebrile overnight. Most of his activities of daily living is handled by nursing staff. Objective: Vitals (See below) General: Sleeping, will mumble occasional words, not oriented, awake HEENT: no JVD, CVS: RRR, +S1S2 normal Lungs: clear to auscultation Abdomen: Soft, no distended, bowel sounds present Extremities: No edema, no cyanosis Assessment and plan: Acute metabolic encephalopathy - likely 2/2 progressive dementia, less likely 2/2 infection - Family unable to care him at home - Currently remains nonverbal for the majority of the day; however experiences episodes where he states non-comprehendible things ( unchanged) - No focal neurologic deficits - Remains hemodynamically stable and afebrile - Toxicology negative - Blood culture show no growth - UA without evidence of infection - CXR 07/14: Pacemaker in place. Mildly enlarged heart. Otherwise no acute disease. - CT head 07/17: No new intracranial findings. No acute hemorrhage, midline shift, or mass effect. New mild fluid in the left sphenoid sinus. - Decrease Seroquel to 12.5 qhs - Currently looking into intermediate project manager placement; discussion about TERRAZZO JOURNEYMAN / Feeding tube - family is considering options s/p Hypernatremia - likely 2/2 poor oral intake - likely 2/2 above s/p Hypokalemia s/p MARIA VICTORIA - likely 2/2 pre-renal etiology A. fib - Currently not on rate and rhythm control - INR approaching therapeutic range - c/w Coumadin Elevated troponin - likely 2/2 demand ischemia & MARIA VICTORIA - No chest pain - EKG 07/14: Paced rhythm - ECHO 07/17: moderate Pulm HTN, Preserved EF - Has remained stable DLP - c/w Simvastatin Hypothyroidism - c/w Levothyroxine Mood disorder - c/w adjusted dose ofQuetiapine Hx of colon cancer - s/p resection DVT prophylaxis - c/w full anticoagulation with Warfarin Disposition: - Looking into NH placement; will transition patient to SNF VS,Fishbone, I+O VS, Fishbone, I+O Laboratory Tests 07/22/18 05:22 Red Blood Count 3.92 L, Mean Corpuscular Volume 94.1, Mean Corpuscular Hemoglobin 30.4, Mean Corpuscular Hemoglobin Concent 32.2, Red Cell Distribution Width 15.5 H, Calcium Level 8.7 L Vital Signs Date Time Temp Pulse Resp B/P (MAP) Pulse Ox O2 Delivery O2 Flow Rate FiO2 07/21/18 22:00 98.2 77 17 125/75 (92) 99 I&O- Last 24 Hours up to 6 AM 07/22/18 06:00 Intake Total 360 ml Output Total 0 ml Balance 360 ml GME ATTESTATION GME ATTESTATION My faculty preceptor for this patient encounter was physically present during the encounter and was fully available. All aspects of the patient interview, examination, medical decision making process, and medical care plan development were reviewed and approved by the faculty preceptor. The faculty preceptor is aware and concurs with the plan as stated in the body of this note and will att est to such by his/her cosignature. ATTENDING NOTE I, Mary Kenyon, have both independently examined this patient as well as reviewed the documentation. I have discussed in detail with the resident the findings and plan of treatment as documented in the residents documentation. I will continue to follow the patient and offer further guidance to the patients care as necessary during this hospital stay. CASSI RANGEL DO Jul 22, 2018 07:28 MARY KENYON MD Jul 22, 2018 15:00
[2018-07-22 14:00] VITALS: BP 161/78
[2018-07-22] MEDS: WARFARIN SOD 3 MG TAB PO SCH (17:00)
[2018-07-22] MEDS: SIMVASTATIN 20 MG TAB PO SCH (21:22)
[2018-07-22] MEDS: QUEtiapine FUMARATE 12.5 MG HALF-TAB PO SCH (21:22)
[2018-07-22 22:00] VITALS: BP 139/71
[2018-07-23] MEDS: LEVOTHYROXINE 62.5MCG PER 1/2 TAB (0.0625MG) PO SCH (05:07)
[2018-07-23] MEDS: ACETAMINOPHEN 650 MG SUPP PR PRN ×2 (05:08→20:26)
[2018-07-23 06:00] VITALS: BP 173/77
[2018-07-23 06:29] LABS: HEMATOCRIT 37.6 % (42.0-52.0); HEMOGLOBIN 12.3 g/dl (13.5-17.5); MEAN CORPUSCULAR HGB CONC 32.7 g/dl (32.0-36.5); MEAN CORPUSCULAR VOLUME 94.7 fl (80.0-96.0); PLATELET COUNT, AUTOMATED 147 10^3/uL (150-450); RED BLOOD COUNT 3.97 10^6/uL (4.30-6.10); WHITE BLOOD COUNT 7.7 10^3/uL (4.0-10.0)
[2018-07-23 06:44] LABS: INR 1.66; PROTHROMBIN TIME 19.9 SECONDS (12.1-14.4)
[2018-07-23 06:50] LABS: BLOOD UREA NITROGEN 17 MG/DL (7-18); CALCIUM LEVEL 8.7 MG/DL (8.8-10.2); CARBON DIOXIDE LEVEL 27 MEQ/L (21-32); CHLORIDE LEVEL 107 MEQ/L (98-107); CREATININE FOR GFR 0.95 MG/DL (0.70-1.30); GLOMERULAR FILTRATION RATE > 60.0 (>35); GLUCOSE, FASTING 92 MG/DL (70-100); POTASSIUM SERUM 3.9 MEQ/L (3.5-5.1); SODIUM LEVEL 139 MEQ/L (136-145)
[2018-07-23 14:00] VITALS: BP 129/75
[2018-07-23] MEDS: WARFARIN SOD 3 MG TAB PO SCH (18:59)
[2018-07-23] MEDS: SIMVASTATIN 20 MG TAB PO SCH (20:26)
[2018-07-23] MEDS: QUEtiapine FUMARATE 12.5 MG HALF-TAB PO SCH (20:26)
[2018-07-23 22:00] VITALS: BP 152/70
[2018-07-24] MEDS: LEVOTHYROXINE 62.5MCG PER 1/2 TAB (0.0625MG) PO SCH (05:21)
[2018-07-24 06:00] VITALS: BP 160/80
[2018-07-24 06:38] LABS: HEMATOCRIT 36.2 % (42.0-52.0); HEMOGLOBIN 11.7 g/dl (13.5-17.5); MEAN CORPUSCULAR HEMOGLOBIN 30.5 pg (27.0-33.0); MEAN CORPUSCULAR HGB CONC 32.3 g/dl (32.0-36.5); MEAN CORPUSCULAR VOLUME 94.3 fl (80.0-96.0); PLATELET COUNT, AUTOMATED 159 10^3/uL (150-450); RED BLOOD COUNT 3.84 10^6/uL (4.30-6.10); WHITE BLOOD COUNT 7.8 10^3/uL (4.0-10.0)
[2018-07-24 07:00] LABS: INR 1.69; PROTHROMBIN TIME 20.2 SECONDS (12.1-14.4)
[2018-07-24 07:01] LABS: BLOOD UREA NITROGEN 16 MG/DL (7-18); CALCIUM LEVEL 8.6 MG/DL (8.8-10.2); CARBON DIOXIDE LEVEL 27 MEQ/L (21-32); CHLORIDE LEVEL 107 MEQ/L (98-107); CREATININE FOR GFR 0.92 MG/DL (0.70-1.30); GLOMERULAR FILTRATION RATE > 60.0 (>35); GLUCOSE, FASTING 85 MG/DL (70-100); POTASSIUM SERUM 3.8 MEQ/L (3.5-5.1); SODIUM LEVEL 140 MEQ/L (136-145)
[2018-07-24 14:00] VITALS: BP 123/88
[2018-07-24] MEDS: WARFARIN SOD 2.5 MG TAB PO SCH (18:58)
[2018-07-24] MEDS: SIMVASTATIN 20 MG TAB PO SCH (21:22)
[2018-07-24] MEDS: QUEtiapine FUMARATE 12.5 MG HALF-TAB PO SCH (21:25)
[2018-07-24 22:00] VITALS: BP 132/68
[2018-07-25] MEDS: LEVOTHYROXINE 62.5MCG PER 1/2 TAB (0.0625MG) PO SCH (05:23)
[2018-07-25 06:00] VITALS: BP 108/59
[2018-07-25 06:26] LABS: HEMATOCRIT 36.9 % (42.0-52.0); HEMOGLOBIN 12.2 g/dl (13.5-17.5); MEAN CORPUSCULAR HEMOGLOBIN 30.7 pg (27.0-33.0); MEAN CORPUSCULAR HGB CONC 33.1 g/dl (32.0-36.5); MEAN CORPUSCULAR VOLUME 92.7 fl (80.0-96.0); PLATELET COUNT, AUTOMATED 162 10^3/uL (150-450); RED BLOOD COUNT 3.98 10^6/uL (4.30-6.10); WHITE BLOOD COUNT 6.4 10^3/uL (4.0-10.0)
[2018-07-25 06:33] LABS: INR 1.75; PROTHROMBIN TIME 20.7 SECONDS (12.1-14.4)
[2018-07-25 06:51] LABS: BLOOD UREA NITROGEN 15 MG/DL (7-18); CALCIUM LEVEL 8.4 MG/DL (8.8-10.2); CARBON DIOXIDE LEVEL 28 MEQ/L (21-32); CHLORIDE LEVEL 107 MEQ/L (98-107); CREATININE FOR GFR 0.84 MG/DL (0.70-1.30); GLOMERULAR FILTRATION RATE > 60.0 (>35); GLUCOSE, FASTING 77 MG/DL (70-100); POTASSIUM SERUM 3.6 MEQ/L (3.5-5.1); SODIUM LEVEL 141 MEQ/L (136-145)
[2018-07-25] MEDS: WARFARIN SOD 2.5 MG TAB PO SCH (16:41)
[2018-07-25] MEDS ORDERED: WARFARIN SOD 2.5 MG TAB PO SCH (17:00)
[2018-07-25] MEDS: QUEtiapine FUMARATE 12.5 MG HALF-TAB PO SCH (20:26)
[2018-07-25] MEDS: SIMVASTATIN 20 MG TAB PO SCH (20:26)
[2018-07-26] MEDS: LEVOTHYROXINE 62.5MCG PER 1/2 TAB (0.0625MG) PO SCH (05:36)
[2018-07-26 06:00] VITALS: BP 116/64
[2018-07-26 06:18] LABS: INR 2.04; PROTHROMBIN TIME 23.4 SECONDS (12.1-14.4)
[2018-07-26] MEDS: WARFARIN SOD 2.5 MG TAB PO SCH (17:12)
[2018-07-26] MEDS: QUEtiapine FUMARATE 12.5 MG HALF-TAB PO SCH (20:02)
[2018-07-26] MEDS: SIMVASTATIN 20 MG TAB PO SCH (20:02)
[2018-07-26 22:00] VITALS: BP 117/66
[2018-07-27] MEDS: LEVOTHYROXINE 62.5MCG PER 1/2 TAB (0.0625MG) PO SCH (05:30)
[2018-07-27 06:00] VITALS: BP 132/68
[2018-07-27] MEDS: WARFARIN SOD 2.5 MG TAB PO SCH (17:24)
[2018-07-27] MEDS: SIMVASTATIN 20 MG TAB PO SCH (20:50)
[2018-07-27] MEDS: QUEtiapine FUMARATE 12.5 MG HALF-TAB PO SCH (20:50)
[2018-07-28] MEDS: LEVOTHYROXINE 62.5MCG PER 1/2 TAB (0.0625MG) PO SCH (05:56)
[2018-07-28 06:00] VITALS: BP 106/58
[2018-07-28 06:18] LABS: INR 2.34; PROTHROMBIN TIME 26.1 SECONDS (12.1-14.4)
[2018-07-28] MEDS: WARFARIN SOD 2.5 MG TAB PO SCH (16:24)
[2018-07-28] MEDS: SIMVASTATIN 20 MG TAB PO SCH (21:22)
[2018-07-28] MEDS: QUEtiapine FUMARATE 12.5 MG HALF-TAB PO SCH (21:22)
[2018-07-29] MEDS: LEVOTHYROXINE 62.5MCG PER 1/2 TAB (0.0625MG) PO SCH (05:29)
[2018-07-29 06:00] VITALS: BP 117/60
--- NOTE | 2018-07-29 10:32 | IPNPDOC ---
Text Note Date of Service The patient was seen on 07/29/18. NOTE Subjective: Patient was examined at bedside. He continues to be nonresponsive, however seems to be sleeping peacefully. He will occasionally mumble a few noncoherent words. He does respond to painful stimuli. According to the sitter, he woke up enough to play with a hot wheels car and throw it in her general direction. He was afebrile overnight. Most of his activities of daily living are handled by nursing staff. Objective: Vitals (See below) General: Sleeping, will mumble occasional words, not oriented, awake HEENT: Mucous membranes are moist, head is atraumatic/normocephalic Heart: Danny rate and rhythm; no murmurs, gallops, or rubs Lungs: clear to auscultation bilaterally; no wheezes, rhonchi, or rales Abdomen: Soft, no distended, bowel sounds present Extremities: No edema, no cyanosis Assessment and plan: Acute metabolic encephalopathy - likely 2/2 progressive dementia, less likely 2/2 infection - Family unable to care him at home - Currently remains nonverbal for the majority of the day; however experiences episodes where he states non-comprehendible things (unchanged) - No focal neurologic deficits - Remains hemodynamically stable and afebrile - Toxicology negative - Blood culture show no growth - UA without evidence of infection - CXR 07/14: Pacemaker in place. Mildly enlarged heart. Otherwise no acute disease. - CT head 07/17: No new intracranial findings. No acute hemorrhage, midline shift, or mass effect. New mild fluid in the left sphenoid sinus. - Decrease Seroquel to 12.5 qhs - Currently looking into detention placement; discussion about [employer] / Feeding tub e - family is considering options s/p Hypernatremia - likely 2/2 poor oral intake - likely 2/2 above s/p Hypokalemia s/p MARIA VICTORIA - likely 2/2 pre-renal etiology A. fib - Currently not on rate and rhythm control - INR is therapeutic - c/w Coumadin Elevated troponin - likely 2/2 demand ischemia & MARIA VICTORIA - No chest pain - EKG 07/14: Paced rhythm - ECHO 07/17: moderate Pulm HTN, Preserved EF - Has remained stable DLP - c/w Simvastatin Hypothyroidism - c/w Levothyroxine Mood disorder - c/w adjusted dose ofQuetiapine Hx of colon cancer - s/p resection DVT prophylaxis - c/w full anticoagulation with Warfarin Disposition: - Looking into NH placement, patient is SNF VS,[facility], I+O VS, [facility], I+O Vital Signs Date Time Temp Pulse Resp B/P (MAP) Pulse Ox O2 Delivery O2 Flow Rate FiO2 07/29/18 06:00 98.1 73 18 117/60 (79) 98 I&O- Last 24 Hours up to 6 AM 07/29/18 06:00 Intake Total 1260 ml Balance 1260 ml GME ATTESTATION GME ATTESTATION My faculty preceptor for this patient encounter was physically present during the encounter and was fully available. All aspects of the patient interview, examination, medical decision making process, and medical care plan development were reviewed and approved by the faculty preceptor. The faculty preceptor is aware and concurs with the plan as stated in the body of this note and will attest to such by his/her cosignature. DANNY العراقي DO Jul 29, 2018 10:32
[2018-07-29] MEDS: WARFARIN SOD 2.5 MG TAB PO SCH (16:00)
[2018-07-29] MEDS: SIMVASTATIN 20 MG TAB PO SCH (20:46)
[2018-07-29] MEDS: QUEtiapine FUMARATE 12.5 MG HALF-TAB PO SCH (20:46)
[2018-07-30 06:00] VITALS: BP 133/75
[2018-07-30] MEDS: LEVOTHYROXINE 62.5MCG PER 1/2 TAB (0.0625MG) PO SCH (06:01)
[2018-07-30 09:00] VITALS: BP 130/70
[2018-07-30 15:27] VITALS: BP 106/62
[2018-07-30] MEDS: WARFARIN SOD 2.5 MG TAB PO SCH (17:03)
[2018-07-30] MEDS: QUEtiapine FUMARATE 12.5 MG HALF-TAB PO SCH (19:59)
[2018-07-30] MEDS: SIMVASTATIN 20 MG TAB PO SCH (19:59)
[2018-07-31 06:00] VITALS: BP 123/77
[2018-07-31] MEDS: LEVOTHYROXINE 62.5MCG PER 1/2 TAB (0.0625MG) PO SCH (06:12)
[2018-07-31 09:49] LABS: HEMATOCRIT 34.5 % (42.0-52.0); HEMOGLOBIN 10.9 g/dl (13.5-17.5); MEAN CORPUSCULAR HEMOGLOBIN 30.5 pg (27.0-33.0); MEAN CORPUSCULAR HGB CONC 31.6 g/dl (32.0-36.5); MEAN CORPUSCULAR VOLUME 96.6 fl (80.0-96.0); PLATELET COUNT, AUTOMATED 222 10^3/uL (150-450); RED BLOOD COUNT 3.57 10^6/uL (4.30-6.10); WHITE BLOOD COUNT 5.9 10^3/uL (4.0-10.0)
[2018-07-31 10:13] LABS: BLOOD UREA NITROGEN 17 MG/DL (7-18); CALCIUM LEVEL 8.6 MG/DL (8.8-10.2); CARBON DIOXIDE LEVEL 30 MEQ/L (21-32); CHLORIDE LEVEL 105 MEQ/L (98-107); GLOMERULAR FILTRATION RATE > 60.0 (>35); GLUCOSE, FASTING 130 MG/DL (70-100); POTASSIUM SERUM 3.9 MEQ/L (3.5-5.1); SODIUM LEVEL 141 MEQ/L (136-145)
[2018-07-31] MEDS: WARFARIN SOD 2.5 MG TAB PO SCH (16:16)
[2018-07-31] MEDS: QUEtiapine FUMARATE 12.5 MG HALF-TAB PO SCH (19:55)
[2018-07-31] MEDS: SIMVASTATIN 20 MG TAB PO SCH (19:55)
[2018-08-01] MEDS: LEVOTHYROXINE 62.5MCG PER 1/2 TAB (0.0625MG) PO SCH (05:29)
[2018-08-01 06:00] VITALS: BP 141/68
[2018-08-01 11:19] LABS: INR 2.74; PROTHROMBIN TIME 29.6 SECONDS (12.1-14.4)
[2018-08-01] MEDS: WARFARIN SOD 2.5 MG TAB PO SCH (16:21)
[2018-08-01] MEDS: QUEtiapine FUMARATE 12.5 MG HALF-TAB PO SCH (20:54)
[2018-08-01] MEDS: SIMVASTATIN 20 MG TAB PO SCH (20:54)
[2018-08-02] MEDS: LEVOTHYROXINE 62.5MCG PER 1/2 TAB (0.0625MG) PO SCH (05:53)
[2018-08-02 06:00] VITALS: BP 139/71
[2018-08-02] MEDS ORDERED: ACET65SU PR (10:34)
--- NOTE | 2018-08-02 12:24 | DSES ---
DATE OF ADMISSION: 07/15/2018 DATE OF DISCHARGE: 08/02/2018 CONSULTANTS: None. PROCEDURES: Echocardiogram. DISCHARGE DIAGNOSES: 1. Acute metabolic encephalopathy. 2. Hypernatremia. 3. Hypokalemia. 4. Acute kidney injury. HOSPITAL COURSE: This is an 83-year-old gentleman who presented via ambulance due to the noticing the patient appeared more tired and lethargic with a decreased appetite. According to the , he tried to get up from his chair and slumped to the left while holding his walker. He was unresponsive at that time and the and home health aide, who had just arrived, carried the patient to the shower. After a shower, he continued to be weak and lethargic, as well as not very responsive, so they proceed to call EMS. The patient had an extensive workup revealing hypernatremia, acute kidney injury and a low concern for transient ischemic attack. As the patient had recently had pacemaker, it was found to not be compatible with MRI. It was thought subsequently that the patient's acute metabolic encephalopathy was more likely due to progressive dementia and less likely due to infection or other explainable cause. The family expressed they were unable to care for him at home and so were looking about making him comfort measures only with admission to [facility]p facility. The patient is seen and examined at bedside. He continues to be relatively nonresponsive but seems to be sleeping peacefully. Per the sitter, he will occasionally mumble a few incoherent words. He will respond to painful stimuli. He was afebrile overnight and most of his activities of daily living are handled by his nursing staff. OBJECTIVE: Vitals: Temperature 98.3, pulse 81 and irregular, respiratory rate 18, blood pressure 139/71, pulse ox is 99% on room air. GENERAL: Elderly appearing male who is sleeping comfortably, in no acute distress. HEENT: Mucous membranes are moist. Head is atraumatic, normocephalic. HEART: Irregular rate and rhythm. No murmurs, gallops or rubs. LUNGS: Clear to auscultation bilaterally. No wheezes, rhonchi or rales. ABDOMEN: Soft, nondistended. Positive bowel sounds. EXTREMITIES: No edema. No cyanosis. NEUROLOGIC: Responds to painful stimuli. Not very oriented and not awake. LABORATORY DATA: CBC: From 07/31/2018: WBC 5.9, hemoglobin 10.9, hematocrit 34.5, platelets 222. CHEMISTRY: Sodium 141, potassium 3.9, chloride 105, carbon dioxide 30, BUN 17, creatinine 1.00, fasting glucose 130, calcium 8.6. Coagulation done 08/01/2018 shows an INR of 2.75. PT is 29.6. Microbiology: Blood culture negative. Stool occult blood was negative. IMAGING STUDIES: Head CT done 07/14/2018 showed small vessel ischemic disease and moderate volume loss. Chest x-ray done 07/14/[address], mildly enlarged heart, otherwise no acute disease. Vascular ultrasound of the carotids showed the left carotid had diffuse intimal thickening with moderate mixed plaquing in the left carotid bulb and ICA. 50- 75% narrowing of the right ICA with mixed plaquing. Head CT done 07/17/2018 showed no new intracranial findings. No acute hemorrhage, midline shift or mass effect. Mild fluid in the left sphenoid sinus. ECHOCARDIOGRAM: Shows underlying atrial fibrillation consistent with ventricular paced complexes with mild concentric left ventricular hypertrophy and localized septal wall motion abnormality, yet preserved global resting systolic dysfunction. Aortic valvular sclerosis without stenosis and trace insufficiency. Small posterior pericardial effusion without evidence of cardiac compression. ASSESSMENT AND PLAN: 1. Acute metabolic encephalopathy, likely secondary to progressive dementia. The patient's family is unable to care for him at home. He currently remains nonverbal for the majority of the day; however, will experience periods of incomprehensible language. No obvious focal neuro deficits. He remains hemodynamically stable and afebrile. Toxicology is negative. Blood culture showed no growth. Infectious disease workup negative for infection. Family is unable to care for him home and would like usp placement. 2. Hypernatremia, likely secondary to poor oral intake. 3. Hypokalemia, likely secondary to poor oral intake. 4. Status post acute kidney injury, which was likely secondary to prerenal etiology. 5. Atrial fibrillation. Currently not on rate or rhythm control. He continues on warfarin and his INR is therapeutic. 6. Elevated troponin, which was likely secondary to demand ischemia and acute renal injury. No chest pain. His echo were negative for ischemia. 7. Dyslipidemia. Continue simvastatin. 8. Hypothyroidism. Continue levothyroxine. 9. Mood disorder. His quetiapine dose was adjusted. 10. History of colon cancer, status post resection. 11. Deep vein thrombosis (DVT) prophylaxis. He is fully anticoagulated with warfarin. DISCHARGE MEDICATIONS: - warfarin 2.5 mg daily - Seroquel 12.5 mg at night - Synthroid 62.5 mcg daily - Zocor 20 mg at night - Tylenol suppository 650 mg every 6 hours as needed for fever or pain DISPOSITION: Stable. long-term placement. DIET: Regular. ACTIVITY: As tolerated. Followup with primary care provider as needed. Greater than 30 minutes was spent on discharge. My faculty preceptor for this patient encounter was physically present during the encounter and was fully available. All aspects of the patient interview, examination, medical decision making process, and medical care plan development were reviewed and approved by the faculty preceptor. The faculty preceptor is aware and concurs with the plan as stated in the body of this note and will attest to such by his/her co-signature. BEVERLY
[2018-08-02] MEDS: WARFARIN SOD 2.5 MG TAB PO SCH (17:48)
[2018-08-02] MEDS: SIMVASTATIN 20 MG TAB PO SCH (20:43)
[2018-08-02] MEDS: QUEtiapine FUMARATE 12.5 MG HALF-TAB PO SCH (20:43)
[2018-08-03] MEDS: LEVOTHYROXINE 62.5MCG PER 1/2 TAB (0.0625MG) PO SCH (05:35)
[2018-08-03 06:00] VITALS: BP 132/56
[2018-08-03] MEDS: WARFARIN SOD 2.5 MG TAB PO SCH (17:35)
[2018-08-03] MEDS: SIMVASTATIN 20 MG TAB PO SCH (21:03)
[2018-08-03] MEDS: QUEtiapine FUMARATE 12.5 MG HALF-TAB PO SCH (21:03)
[2018-08-04 06:00] VITALS: BP 140/67
[2018-08-04] MEDS: LEVOTHYROXINE 62.5MCG PER 1/2 TAB (0.0625MG) PO SCH (06:42)
[2018-08-04] MEDS: WARFARIN SOD 2.5 MG TAB PO SCH (17:14)
[2018-08-04] MEDS: QUEtiapine FUMARATE 12.5 MG HALF-TAB PO SCH (20:21)
[2018-08-04] MEDS: SIMVASTATIN 20 MG TAB PO SCH (20:21)
[2018-08-05 06:00] VITALS: BP 127/67
[2018-08-05] MEDS: LEVOTHYROXINE 62.5MCG PER 1/2 TAB (0.0625MG) PO SCH (06:03)
--- NOTE | 2018-08-05 15:37 | DSES ---
DATE OF ADMISSION: 07/15/2018 DATE OF DISCHARGE: 08/05/2018 ADDENDUM Date of discharge ended up being 08/05/2018. Discharge was delayed because the [facility] was on respiratory precautions due to respiratory virus outbreak. The patient was seen and examined at bedside. He continued to be relatively nonresponsive but seemed to be sleeping peacefully. Vital signs showed a temperature of 97.8, and an irregular pulse at 71, respiratory rate of 18, blood pressure of 127/67 and pulse ox of 95% on room air. His mucous membranes were moist. His heart continues to be in an irregular rate and rhythm. No murmurs, gallops or rubs. Lungs were clear to auscultation bilaterally without wheezes, rhonchi or rales. His exam is essentially unchanged from when he was examined on August 02, 2018. ASSESSMENT/PLAN: Remains the same. Please see my previous discharge summary for further details. My faculty preceptor for this patient encounter was physically present during the encounter and was fully available. All aspects of the patient interview, examination, medical decision making process, and medical care plan development were reviewed and approved by the faculty preceptor. The faculty preceptor is aware and concurs with the plan as stated in the body of this note and will attest to such by his/her co-signature. BEVERLY
== END 2018-08-05 11:28 | DRG 682 ==
LOC: EDSEX 13:13 → M ED 13:13 → EDBD 13:13 → M ED INP 19:15 → M PCU 07-15 05:45 → M MSPAV 07-15 16:52 → OBSVTOIN 07-15 18:27 → M MSPAV 07-27 17:30
PROVIDERS: ADMIT Internal Medicine; ATTEND Internal Medicine Nephrology
DX: N17.9 Acute kidney failure, unspecified (principal); G93.41 Metabolic encephalopathy; E87.0 Hyperosmolality and hypernatremia; E87.6 Hypokalemia; Z51.5 Encounter for palliative care; I48.91 Unspecified atrial fibrillation; F39 Unspecified mood [affective] disorder; E78.5 Hyperlipidemia, unspecified; E03.9 Hypothyroidism, unspecified; Z85.038 Personal history of other malignant neoplasm of large intestine; Z79.899 Other long term (current) drug therapy; I10 Essential (primary) hypertension; F03.90 Unspecified dementia, unspecified severity, without behavioral disturbance, psychotic disturbance, mood disturbance, and anxiety; Z95.0 Presence of cardiac pacemaker

== ENCOUNTER → 2018-08-06 | Outpatient (REF) ==
[~2018-08-06] MED LIST changes: -/WARF2TA; +ACET-716 PO; -ACET30TAB PO; +ACET65SU PR; +APAP325T4 PO; +COUM1TAB16; +DEPA1CAP PO; +DULC10SU2 PR; +ENEMENE4 PR; +LEVO112T25 PO; +MELA3TAB PO; +MILK120011 PO; +POTA1TAB23 PO; +REFR0.5D8 OU; +TYLE325T5 PO; +WARF05TA PO; +WARF4TAB52 PO
[2018-08-06 08:46] LABS: INR 3.61; PROTHROMBIN TIME 36.8 SECONDS (12.1-14.4)
== END ==
LOC: SKLAB3 07:00
PROVIDERS: ATTEND Internal Medicine
DX: I48.91 Unspecified atrial fibrillation (principal)

== ENCOUNTER → 2018-08-11 | Outpatient (REF) ==
[~2018-08-11] MED LIST changes: +/WARF2TA; -ACET-716 PO; +ACET30TAB PO; -COUM1TAB16; -DEPA1CAP PO; -DULC10SU2 PR; -ENEMENE4 PR; -LEVO112T25 PO; -MELA3TAB PO; -MILK120011 PO; -REFR0.5D8 OU; -TYLE325T5 PO
[2018-08-11 10:39] LABS: INR 1.76; PROTHROMBIN TIME 20.8 SECONDS (12.1-14.4)
== END ==
LOC: SKLAB3 07:00
PROVIDERS: ATTEND Internal Medicine
DX: I48.91 Unspecified atrial fibrillation (principal)

== ENCOUNTER → 2018-08-18 | Outpatient (REF) ==
[2018-08-18 08:59] LABS: INR 1.42; PROTHROMBIN TIME 17.6 SECONDS (12.1-14.4)
[2018-08-18 10:53] LABS: BLOOD UREA NITROGEN 19 MG/DL (7-18); CALCIUM LEVEL 8.8 MG/DL (8.8-10.2); CARBON DIOXIDE LEVEL 26 MEQ/L (21-32); CHLORIDE LEVEL 106 MEQ/L (98-107); CREATININE FOR GFR 0.97 MG/DL (0.70-1.30); GLOMERULAR FILTRATION RATE > 60.0 (>35); GLUCOSE, FASTING 76 MG/DL (70-100); POTASSIUM SERUM 4.4 MEQ/L (3.5-5.1); SODIUM LEVEL 141 MEQ/L (136-145)
== END ==
LOC: SKLAB3 07:00
PROVIDERS: ATTEND Internal Medicine
DX: I48.91 Unspecified atrial fibrillation (principal)

== ENCOUNTER → 2018-09-05 | Outpatient (REF) | payer MEDICARE ==
[~2018-09-05] MED LIST changes: -/WARF2TA; +ACET-716 PO; -ACET30TAB PO; +COUM1TAB16; +DEPA1CAP PO; +DULC10SU2 PR; +ENEMENE4 PR; +LEVO112T25 PO; +MELA3TAB PO; +MILK120011 PO; +REFR0.5D8 OU; +TYLE325T5 PO
[2018-09-05 11:05] LABS: INR 2.41; PROTHROMBIN TIME 26.7 SECONDS (12.1-14.4)
== END ==
LOC: SKLAB8 07:00
PROVIDERS: ATTEND Internal Medicine
DX: Z51.81 Encounter for therapeutic drug level monitoring (principal); Z79.01 Long term (current) use of anticoagulants

== ENCOUNTER 2018-09-08 16:48 | Emergency (ER) | payer MEDICARE ==
[~2018-09-08 16:48] MED LIST changes: -DEPA1CAP PO; -DULC10SU2 PR; -ENEMENE4 PR; -LEVO112T25 PO; -MELA3TAB PO; -MILK120011 PO; -REFR0.5D8 OU; -TYLE325T5 PO
[2018-09-08] MEDS ORDERED: MELA3TAB PO (17:37)
[2018-09-08] MEDS ORDERED: REFR0.5D8 OU (17:37)
[2018-09-08] MEDS ORDERED: LEVO112T25 PO (17:37)
[2018-09-08] MEDS ORDERED: DULC10SU2 PR (17:37)
[2018-09-08] MEDS ORDERED: ENEMENE4 PR (17:37)
[2018-09-08] MEDS ORDERED: TYLE325T5 PO (17:37)
[2018-09-08] MEDS ORDERED: MILK120011 PO (17:37)
[2018-09-08] MEDS ORDERED: WARF-58 PO (17:37)
[2018-09-08] MEDS ORDERED: DEPA1CAP PO (17:37)
[2018-09-08 19:01] LABS: BLOOD UREA NITROGEN 35 MG/DL (7-18); CALCIUM LEVEL 9.1 MG/DL (8.8-10.2); CARBON DIOXIDE LEVEL 29 MEQ/L (21-32); CHLORIDE LEVEL 105 MEQ/L (98-107); CREATININE FOR GFR 0.97 MG/DL (0.70-1.30); GLOMERULAR FILTRATION RATE > 60.0 (>35); GLUCOSE, FASTING 105 MG/DL (70-100); POTASSIUM SERUM 4.9 MEQ/L (3.5-5.1); SODIUM LEVEL 139 MEQ/L (136-145)
[2018-09-08 19:09] LABS: HEMATOCRIT 37.4 % (42.0-52.0); HEMOGLOBIN 11.7 g/dl (13.5-17.5); MEAN CORPUSCULAR HEMOGLOBIN 30.7 pg (27.0-33.0); MEAN CORPUSCULAR HGB CONC 31.3 g/dl (32.0-36.5); MEAN CORPUSCULAR VOLUME 98.2 fl (80.0-96.0); PLATELET COUNT, AUTOMATED 297 10^3/uL (150-450); RED BLOOD COUNT 3.81 10^6/uL (4.30-6.10); WHITE BLOOD COUNT 7.7 10^3/uL (4.0-10.0)
--- NOTE | 2018-09-08 19:11 | REP ---
Clinical: Foot swelling Technique: AP, lateral, bilateral oblique views left foot . Findings: The osseous structures and joint spaces are intact and normal. There is no evidence for acute fracture or dislocation. Surrounding soft tissues are unremarkable. No subcutaneous emphysema or radiodense foreign body. Impression: Normal left foot series . No acute fracture or dislocation. Electronically Signed by Derek Torres MD 09/08/2018 07:03 P
--- NOTE | 2018-09-08 19:12 | REP ---
Clinical: Swelling. Technique: AP, lateral, bilateral oblique views of the left ankle. Findings: Peripheral vascular disease. Moderate lateral swelling may reflect inversion injury. No acute fracture or dislocation. Ankle mortise intact. Impression: Lateral swelling suggests inversion injury. No acute fracture. Electronically Signed by Derek Torres MD 09/08/2018 07:04 P
[2018-09-08 22:13] VITALS: BP 177/88
== END 2018-09-08 22:20 | disposition home or self-care (01) ==
LOC: M ED 16:48
DX: G30.9 Alzheimer's disease, unspecified (principal); I10 Essential (primary) hypertension; I48.91 Unspecified atrial fibrillation; E03.9 Hypothyroidism, unspecified; Z79.899 Other long term (current) drug therapy; Z79.01 Long term (current) use of anticoagulants; Z87.891 Personal history of nicotine dependence

== ENCOUNTER → 2018-09-08 | Outpatient (REF) | payer MEDICARE ==
[2018-09-08 12:07] LABS: INR 2.31; PROTHROMBIN TIME 25.8 SECONDS (12.1-14.4)
== END ==
LOC: SKLAB8 11:00
PROVIDERS: ATTEND Internal Medicine
DX: Z79.01 Long term (current) use of anticoagulants (principal)

== ENCOUNTER → 2018-09-24 | Outpatient (REF) | payer MEDICARE ==
[~2018-09-24] MED LIST changes: +DEPA1CAP PO; +DULC10SU2 PR; +ENEMENE4 PR; +LEVO112T25 PO; +MELA3TAB PO; +MILK120011 PO; +REFR0.5D8 OU; +TYLE325T5 PO
[2018-09-24 08:09] LABS: INR 2.42; PROTHROMBIN TIME 26.8 SECONDS (12.1-14.4)
== END ==
LOC: SKLAB8 07:00
PROVIDERS: ATTEND Internal Medicine
DX: D64.9 Anemia, unspecified (principal); Z51.81 Encounter for therapeutic drug level monitoring

== ENCOUNTER → 2018-10-06 | Outpatient (REF) | payer MEDICARE ==
[2018-10-06 08:29] LABS: HEMATOCRIT 33.6 % (42.0-52.0); HEMOGLOBIN 10.6 g/dl (13.5-17.5); MEAN CORPUSCULAR HEMOGLOBIN 29.4 pg (27.0-33.0); MEAN CORPUSCULAR HGB CONC 31.5 g/dl (32.0-36.5); MEAN CORPUSCULAR VOLUME 93.3 fl (80.0-96.0); PLATELET COUNT, AUTOMATED 213 10^3/uL (150-450); WHITE BLOOD COUNT 6.3 10^3/uL (4.0-10.0)
[2018-10-06 09:26] LABS: INR 2.56
== END ==
LOC: SKLAB8 07:00
PROVIDERS: ATTEND Internal Medicine
DX: Z79.01 Long term (current) use of anticoagulants (principal)

== ENCOUNTER → 2018-10-11 | Outpatient (REF) | payer MEDICARE ==
[2018-10-11 10:58] LABS: HEMATOCRIT 29.8 % (42.0-52.0); HEMOGLOBIN 9.4 g/dl (13.5-17.5); MEAN CORPUSCULAR HGB CONC 31.5 g/dl (32.0-36.5); PLATELET COUNT, AUTOMATED 228 10^3/uL (150-450); RED BLOOD COUNT 3.24 10^6/uL (4.30-6.10); WHITE BLOOD COUNT 5.5 10^3/uL (4.0-10.0)
[2018-10-11 11:31] LABS: BLOOD UREA NITROGEN 28 MG/DL (7-18); CALCIUM LEVEL 7.7 MG/DL (8.8-10.2); CARBON DIOXIDE LEVEL 29 MEQ/L (21-32); CHLORIDE LEVEL 107 MEQ/L (98-107); CREATININE FOR GFR 0.92 MG/DL (0.70-1.30); GLOMERULAR FILTRATION RATE > 60.0 (>35); GLUCOSE, FASTING 93 MG/DL (70-100); POTASSIUM SERUM 3.9 MEQ/L (3.5-5.1); SODIUM LEVEL 141 MEQ/L (136-145)
--- NOTE | 2018-10-11 14:37 | REP ---
REASON: Cough and pyrexia. COMPARISON: Multiple, latest 07/14/2018. The technique utilized in obtaining the radiograph has magnified the cardiac silhouette and accentuated the interstitial markings. The single chamber bipolar pacemaker device is unchanged. There is global cardiomegaly accentuated by technique. There is a new opacity in the right lower lobe causing costophrenic and cardiophrenic angle blunting. Patient is tilted and rotated to the right. There is no change in the osseous structures. IMPRESSION: New opacity in the right lower lobe suspicious for pneumonia/atelectasis/effusion correlate clinically with appropriate followup. Consider PA and lateral views of the chest. Electronically Signed by Trevin Bhakta DO 10/11/2018 03:46 P
== END ==
LOC: SKLAB8 08:30
PROVIDERS: ATTEND Internal Medicine
DX: R05 Cough (principal); R50.9 Fever, unspecified

== ENCOUNTER → 2018-10-20 | Outpatient (REF) | payer MEDICARE ==
[2018-10-20 08:10] LABS: INR 2.83; PROTHROMBIN TIME 30.4 SECONDS (12.1-14.4)
== END ==
LOC: SKLAB8 07:00
PROVIDERS: ATTEND Internal Medicine
DX: I48.91 Unspecified atrial fibrillation (principal); E03.9 Hypothyroidism, unspecified; F03.90 Unspecified dementia, unspecified severity, without behavioral disturbance, psychotic disturbance, mood disturbance, and anxiety; D64.9 Anemia, unspecified; Z79.01 Long term (current) use of anticoagulants

== ENCOUNTER → 2018-11-03 | Outpatient (REF) | payer MEDICARE ==
[2018-11-03 09:45] LABS: INR 2.27; PROTHROMBIN TIME 25.5 SECONDS (12.1-14.4)
== END ==
LOC: SKLAB8 10-07 07:00
PROVIDERS: ATTEND Internal Medicine
DX: Z79.01 Long term (current) use of anticoagulants (principal)

== ENCOUNTER → 2018-12-01 | Outpatient (REF) | payer MEDICARE ==
[2018-12-01 11:35] LABS: INR 2.31; PROTHROMBIN TIME 25.2 SECONDS (11.8-14.0)
== END ==
LOC: SKLAB8 07:00
PROVIDERS: ATTEND Internal Medicine
DX: Z79.01 Long term (current) use of anticoagulants (principal)

== ENCOUNTER → 2018-12-15 | Outpatient (REF) | payer MEDICARE ==
[2018-12-15 10:02] LABS: INR 2.66; PROTHROMBIN TIME 28.2 SECONDS (11.8-14.0)
== END ==
LOC: SKLAB8 07:00
PROVIDERS: ATTEND Internal Medicine
DX: Z79.01 Long term (current) use of anticoagulants (principal)

== ENCOUNTER → 2018-12-29 | Outpatient (REF) | payer MEDICARE ==
[2018-12-29 07:13] LABS: PROTHROMBIN TIME 31.1 SECONDS (11.8-14.0)
== END ==
LOC: SKLAB8 07:00
PROVIDERS: ATTEND Internal Medicine
DX: Z79.01 Long term (current) use of anticoagulants (principal)

== ENCOUNTER → 2019-01-02 | Outpatient (REF) | payer MEDICARE ==
[2019-01-02 08:38] LABS: INR 2.67; PROTHROMBIN TIME 28.3 SECONDS (11.8-14.0)
== END ==
LOC: SKLAB8 07:00
PROVIDERS: ATTEND Internal Medicine
DX: Z79.01 Long term (current) use of anticoagulants (principal)

== ENCOUNTER → 2019-01-12 | Outpatient (REF) | payer MEDICARE ==
[2019-01-12 08:14] LABS: INR 2.37; PROTHROMBIN TIME 25.7 SECONDS (11.8-14.0)
== END ==
LOC: SKLAB8 07:00
PROVIDERS: ATTEND Internal Medicine
DX: Z79.01 Long term (current) use of anticoagulants (principal)

== ENCOUNTER → 2019-01-26 | Outpatient (REF) | payer MEDICARE ==
[2019-01-26 08:19] LABS: INR 2.53; PROTHROMBIN TIME 27.1 SECONDS (11.8-14.0)
== END ==
LOC: SKLAB8 07:00
PROVIDERS: ATTEND Internal Medicine
DX: E03.9 Hypothyroidism, unspecified (principal); I48.91 Unspecified atrial fibrillation; Z79.01 Long term (current) use of anticoagulants; F03.90 Unspecified dementia, unspecified severity, without behavioral disturbance, psychotic disturbance, mood disturbance, and anxiety

== ENCOUNTER → 2019-01-27 | Outpatient (REF) | payer MEDICARE ==
[~2019-01-27] MED LIST changes: -MELA3TAB PO; +MELA3TAB63 PO
--- NOTE | 2019-01-27 15:17 | REP ---
Portable chest, 02:14 p.m., single AP view with the patient upright: Comparisons are 10/11/2018 and 07/14/2018. There is cardiomegaly, unchanged. There is a pacemaker, unchanged. There is diffuse interstitial coarsening compatible with diffuse interstitial infiltrates. These are focally worse inferomedially in the right lung whether appears to be a superimposed focal alveolar infiltrate. No pleural effusions. Impression: Diffuse interstitial infiltrates and superimposed focal alveolar infiltrate inferomedially on the right. Chronic cardiomegaly and pacemaker. Electronically Signed by Azar Dempsey MD 01/27/2019 03:09 P
== END ==
LOC: SKLAB8 07:00
PROVIDERS: ATTEND Internal Medicine
DX: J84.9 Interstitial pulmonary disease, unspecified (principal); R91.8 Other nonspecific abnormal finding of lung field; I51.7 Cardiomegaly; Z95.0 Presence of cardiac pacemaker

== ENCOUNTER → 2019-01-31 | Outpatient (REF) | payer MEDICARE ==
[~2019-01-31] MED LIST changes: +MELA3TAB PO; -MELA3TAB63 PO
[2019-01-31 15:40] LABS: INFLUENZA A AMPLIFICATION NEGATIVE (NEGATIVE); INFLUENZA B AMPLIFICATION NEGATIVE (NEGATIVE)
--- NOTE | 2019-01-31 18:13 | REP ---
AP PORTABLE CHEST: 01/31/2019. Comparison: 01/27/2019, 10/11/2018. Clinical history: Follow-up pneumonia. Findings: Single lead pacer over the left upper chest with lead in the right heart unchanged. There is cardiomegaly with right and left heart enlargement. Patchy infiltrates in perihilar and right lower lung zones are somewhat improved. There still appear to be some evidence for vascular congestion. The aorta is calcified, tortuous, unchanged. Airway intact. Impression: Findings: Some interval improvement in the patchy perihilar left and right base infiltrates with cardiomegaly and some interstitial edema still suggested. Electronically Signed by Braden Samuels MD 01/31/2019 07:46 P
== END ==
LOC: SKLAB8 01-28 13:00
PROVIDERS: ATTEND Internal Medicine
DX: R09.89 Other specified symptoms and signs involving the circulatory and respiratory systems (principal); J18.9 Pneumonia, unspecified organism

== ENCOUNTER → 2019-02-02 | Outpatient (REF) | payer MEDICARE ==
[2019-02-02 16:44] LABS: HEMATOCRIT 41.4 % (42.0-52.0); HEMOGLOBIN 12.7 g/dl (13.5-17.5); MEAN CORPUSCULAR HEMOGLOBIN 26.2 pg (27.0-33.0); MEAN CORPUSCULAR HGB CONC 30.7 g/dl (32.0-36.5); MEAN CORPUSCULAR VOLUME 85.5 fl (80.0-96.0); PLATELET COUNT, AUTOMATED 319 10^3/uL (150-450); RED BLOOD COUNT 4.84 10^6/uL (4.30-6.10); WHITE BLOOD COUNT 9.5 10^3/uL (4.0-10.0)
[2019-02-02 17:09] LABS: ALBUMIN 3.2 GM/DL (3.2-5.2); ALT/SGPT 27 U/L (12-78); BILIRUBIN,TOTAL 0.5 MG/DL (0.2-1.0); BLOOD UREA NITROGEN 21 MG/DL (7-18); CALCIUM LEVEL 9.7 MG/DL (8.8-10.2); CARBON DIOXIDE LEVEL 30 MEQ/L (21-32); CHLORIDE LEVEL 106 MEQ/L (98-107); CREATININE FOR GFR 1.11 MG/DL (0.70-1.30); GLOMERULAR FILTRATION RATE > 60.0 (>35); GLUCOSE, FASTING 122 MG/DL (70-100); SODIUM LEVEL 141 MEQ/L (136-145); TOTAL PROTEIN 7.6 GM/DL (6.4-8.2)
== END ==
LOC: SKLAB8 16:00
PROVIDERS: ATTEND Internal Medicine
DX: R53.83 Other fatigue (principal)

== ENCOUNTER → 2019-02-06 | Outpatient (REF) | payer MEDICARE ==
[~2019-02-06] MED LIST changes: -MELA3TAB PO; +MELA3TAB63 PO
[2019-02-06 15:15] LABS: HEMATOCRIT 39.9 % (42.0-52.0); HEMOGLOBIN 12.3 g/dl (13.5-17.5); MEAN CORPUSCULAR HEMOGLOBIN 26.5 pg (27.0-33.0); MEAN CORPUSCULAR HGB CONC 30.8 g/dl (32.0-36.5); MEAN CORPUSCULAR VOLUME 85.8 fl (80.0-96.0); PLATELET COUNT, AUTOMATED 307 10^3/uL (150-450); RED BLOOD COUNT 4.65 10^6/uL (4.30-6.10); WHITE BLOOD COUNT 6.1 10^3/uL (4.0-10.0)
[2019-02-06 15:30] LABS: BLOOD UREA NITROGEN 25 MG/DL (7-18); CALCIUM LEVEL 9.3 MG/DL (8.8-10.2); CARBON DIOXIDE LEVEL 25 MEQ/L (21-32); CHLORIDE LEVEL 109 MEQ/L (98-107); CREATININE FOR GFR 1.21 MG/DL (0.70-1.30); GLOMERULAR FILTRATION RATE > 60.0 (>35); GLUCOSE, FASTING 140 MG/DL (70-100); SODIUM LEVEL 141 MEQ/L (136-145)
== END ==
LOC: SKLAB8 07:00
PROVIDERS: ATTEND Internal Medicine
DX: I48.91 Unspecified atrial fibrillation (principal); R53.83 Other fatigue

== ENCOUNTER → 2019-02-09 | Outpatient (REF) | payer MEDICARE ==
[2019-02-09 11:32] LABS: INR 3.37; PROTHROMBIN TIME 34.1 SECONDS (11.8-14.0)
== END ==
LOC: SKLAB8 07:00
PROVIDERS: ATTEND Internal Medicine
DX: Z79.01 Long term (current) use of anticoagulants (principal); I48.91 Unspecified atrial fibrillation

== ENCOUNTER → 2019-02-13 | Outpatient (REF) | payer MEDICARE ==
[2019-02-13 08:16] LABS: INR 1.55; PROTHROMBIN TIME 18.3 SECONDS (11.8-14.0)
== END ==
LOC: SKLAB8 13:00
PROVIDERS: ATTEND Internal Medicine
DX: R53.83 Other fatigue (principal); Z79.01 Long term (current) use of anticoagulants

== ENCOUNTER → 2019-02-14 | Outpatient (REF) | payer MEDICARE ==
--- NOTE | 2019-02-14 12:38 | REP ---
CHEST X-RAY: Two views. HISTORY: Short of breath. Follow up recent pneumonia. COMPARISON CHEST X-RAY: January 31, 2019. FINDINGS: A unipolar pacemaker remains in the enlarged heart via the left side. No infiltrate is visible today. Mitral annular calcification and vascular calcification are again noted. There is a calcification to the left of the trachea at the thoracic inlet consistent with a calcified thyroid nodule. This is unchanged. Pulmonary vasculature is not increased. There is no evidence of pleural effusion or pulmonary edema. There is diffuse osteopenia. IMPRESSION: Moderate to marked cardiomegaly with pacemaker. Otherwise no acute disease. No infiltrate seen. Electronically Signed by Ryne Pa MD 02/14/2019 01:06 P
== END ==
LOC: SKLAB8 10:34
PROVIDERS: ATTEND Nurse Practitioner Family
DX: R06.02 Shortness of breath (principal); Z09 Encounter for follow-up examination after completed treatment for conditions other than malignant neoplasm; J18.9 Pneumonia, unspecified organism; I51.7 Cardiomegaly; Z95.0 Presence of cardiac pacemaker

== ENCOUNTER → 2019-02-15 | Outpatient (REF) | payer MEDICARE ==
[~2019-02-15] MED LIST changes: +MEMA10TA19 PO; -MEMA1TAB2 PO; -SIMV20TA2 PO; +SIMV20TA22 PO
[2019-02-15 12:08] LABS: HEMATOCRIT 38.9 % (42.0-52.0); HEMOGLOBIN 12.1 g/dl (13.5-17.5); MEAN CORPUSCULAR HEMOGLOBIN 26.6 pg (27.0-33.0); MEAN CORPUSCULAR HGB CONC 31.1 g/dl (32.0-36.5); MEAN CORPUSCULAR VOLUME 85.5 fl (80.0-96.0); PLATELET COUNT, AUTOMATED 249 10^3/uL (150-450); RED BLOOD COUNT 4.55 10^6/uL (4.30-6.10); WHITE BLOOD COUNT 7.8 10^3/uL (4.0-10.0)
[2019-02-15 12:14] LABS: APPEARANCE, URINE HAZY (CLEAR); BACTERIA, URINE AUTO 1+ (NEGATIVE); BILIRUBIN, URINE AUTO NEGATIVE (NEGATIVE); BLOOD, URINE BLOOD 1+ (NEGATIVE); COLOR, URINE YELLOW (YELLOW); GLUCOSE, URINE (UA) AUTO NEGATIVE (NEGATIVE); KETONE, URINE AUTO NEGATIVE (NEGATIVE); LEUKOCYTE ESTERASE, URINE AUTO NEGATIVE (NEGATIVE); MUCUS, URINE SMALL (NEGATIVE); NITRITE, URINE AUTO NEGATIVE (NEGATIVE); PROTEIN, URINE AUTO 1+ mg/dL (NEGATIVE); RBC, URINE AUTO 3 /HPF (0-3); SPECIFIC GRAVITY URINE AUTO 1.025 (1.002-1.035); SQUAMOUS EPITHELIAL CELL UR AU 0 /HPF (0-6); UROBILINOGEN, URINE AUTO 0.2 mg/dL (0.0-2.0); WBC, URINE AUTO 2 /HPF (0-3)
[2019-02-15 13:15] LABS: BLOOD UREA NITROGEN 23 MG/DL (7-18); CALCIUM LEVEL 8.9 MG/DL (8.8-10.2); CARBON DIOXIDE LEVEL 26 MEQ/L (21-32); CHLORIDE LEVEL 107 MEQ/L (98-107); CREATININE FOR GFR 1.03 MG/DL (0.70-1.30); GLOMERULAR FILTRATION RATE > 60.0 (>35); GLUCOSE, FASTING 114 MG/DL (70-100); POTASSIUM SERUM 4.2 MEQ/L (3.5-5.1); SODIUM LEVEL 144 MEQ/L (136-145)
== END ==
LOC: SKLAB8 10:32
PROVIDERS: ATTEND Internal Medicine
DX: R09.89 Other specified symptoms and signs involving the circulatory and respiratory systems (principal); I48.91 Unspecified atrial fibrillation; E03.9 Hypothyroidism, unspecified; Z87.01 Personal history of pneumonia (recurrent); Z11.2 Encounter for screening for other bacterial diseases; A48.1 Legionnaires' disease; Z09 Encounter for follow-up examination after completed treatment for conditions other than malignant neoplasm; Z79.899 Other long term (current) drug therapy

== ENCOUNTER → 2019-02-23 | Outpatient (REF) | payer MEDICARE ==
[~2019-02-23] MED LIST changes: -MEMA10TA19 PO; +MEMA1TAB2 PO; +SIMV20TA2 PO; -SIMV20TA22 PO
[2019-02-23 08:36] LABS: INR 2.39; PROTHROMBIN TIME 25.9 SECONDS (11.8-14.0)
[2019-02-23 08:58] LABS: ALBUMIN 2.9 GM/DL (3.2-5.2); ALT/SGPT 20 U/L (12-78); BILIRUBIN,TOTAL 0.4 MG/DL (0.2-1.0); BLOOD UREA NITROGEN 19 MG/DL (7-18); CARBON DIOXIDE LEVEL 27 MEQ/L (21-32); CHLORIDE LEVEL 107 MEQ/L (98-107); CREATININE FOR GFR 0.82 MG/DL (0.70-1.30); GLOMERULAR FILTRATION RATE > 60.0 (>35); GLUCOSE, FASTING 94 MG/DL (70-100); SODIUM LEVEL 141 MEQ/L (136-145); TOTAL PROTEIN 6.8 GM/DL (6.4-8.2)
== END ==
LOC: SKLAB8 07:00
PROVIDERS: ATTEND Internal Medicine
DX: Z79.01 Long term (current) use of anticoagulants (principal); E03.9 Hypothyroidism, unspecified

== ENCOUNTER → 2019-03-09 | Outpatient (REF) | payer MEDICARE ==
[2019-03-09 08:31] LABS: INR 2.39; PROTHROMBIN TIME 25.9 SECONDS (11.8-14.0)
== END ==
LOC: SKLAB8 07:00
PROVIDERS: ATTEND Internal Medicine
DX: Z79.01 Long term (current) use of anticoagulants (principal)

== ENCOUNTER → 2019-03-23 | Outpatient (REF) | payer MEDICARE ==
[2019-03-23 08:58] LABS: INR 1.89; PROTHROMBIN TIME 21.5 SECONDS (11.8-14.0)
== END ==
LOC: SKLAB8 07:00
PROVIDERS: ATTEND Internal Medicine
DX: Z79.01 Long term (current) use of anticoagulants (principal)

== ENCOUNTER → 2019-04-03 | Outpatient (REF) | payer MEDICARE ==
[2019-04-03 11:47] LABS: HEMATOCRIT 43.8 % (42.0-52.0); HEMOGLOBIN 13.4 g/dl (13.5-17.5); MEAN CORPUSCULAR HEMOGLOBIN 27.1 pg (27.0-33.0); MEAN CORPUSCULAR HGB CONC 30.6 g/dl (32.0-36.5); MEAN CORPUSCULAR VOLUME 88.5 fl (80.0-96.0); PLATELET COUNT, AUTOMATED 369 10^3/uL (150-450); RED BLOOD COUNT 4.95 10^6/uL (4.30-6.10); WHITE BLOOD COUNT 8.5 10^3/uL (4.0-10.0)
[2019-04-03 11:58] LABS: BLOOD UREA NITROGEN 22 MG/DL (7-18); CALCIUM LEVEL 8.7 MG/DL (8.8-10.2); CARBON DIOXIDE LEVEL 26 MEQ/L (21-32); CHLORIDE LEVEL 107 MEQ/L (98-107); CREATININE FOR GFR 0.94 MG/DL (0.70-1.30); GLOMERULAR FILTRATION RATE > 60.0 (>35); GLUCOSE, FASTING 137 MG/DL (70-100); POTASSIUM SERUM 4.5 MEQ/L (3.5-5.1); SODIUM LEVEL 142 MEQ/L (136-145)
== END ==
LOC: SKLAB8 08:00
PROVIDERS: ATTEND Internal Medicine
DX: Z79.899 Other long term (current) drug therapy (principal)

== ENCOUNTER → 2019-04-06 | Outpatient (REF) | payer MEDICARE ==
[2019-04-06 13:48] LABS: INR 2.17; PROTHROMBIN TIME 23.9 SECONDS (11.8-14.0)
== END ==
LOC: SKLAB8 08:00
PROVIDERS: ATTEND Internal Medicine
DX: Z79.899 Other long term (current) drug therapy (principal); Z79.01 Long term (current) use of anticoagulants

== ENCOUNTER → 2019-04-25 | Outpatient (REF) | payer MEDICARE ==
[2019-04-25 11:38] LABS: INR 1.89; PROTHROMBIN TIME 21.5 SECONDS (11.8-14.0)
== END ==
LOC: SKLAB8 10:30
PROVIDERS: ATTEND Internal Medicine
DX: Z79.899 Other long term (current) drug therapy (principal); Z79.01 Long term (current) use of anticoagulants

== ENCOUNTER → 2019-04-27 | Outpatient (REF) | payer MEDICARE ==
[2019-04-27 10:16] LABS: INR 2.08; PROTHROMBIN TIME 23.2 SECONDS (11.8-14.0)
== END ==
LOC: SKLAB8 10:41
PROVIDERS: ATTEND Internal Medicine
DX: I48.91 Unspecified atrial fibrillation (principal)

== ENCOUNTER → 2019-05-05 | Outpatient (REF) | payer MEDICARE ==
[~2019-05-05] MED LIST changes: -SIMV20TA2 PO; +SIMV20TA22 PO
[2019-05-05 06:51] LABS: INR 2.75
== END ==
LOC: SKLAB4 08:00
PROVIDERS: ATTEND Internal Medicine
DX: I48.91 Unspecified atrial fibrillation (principal)

== ENCOUNTER → 2019-05-18 | Outpatient (REF) | payer MEDICARE ==
[~2019-05-18] MED LIST changes: +MEMA10TA19 PO; -MEMA1TAB2 PO
[2019-05-18 08:46] LABS: INR 1.8; PROTHROMBIN TIME 20.6 SECONDS (11.8-14.0)
== END ==
LOC: SKLAB4 13:16
PROVIDERS: ATTEND Internal Medicine
DX: I48.91 Unspecified atrial fibrillation (principal)

== ENCOUNTER → 2019-05-25 | Outpatient (REF) | payer MEDICARE | LOC: SKLAB4 10:18 | PROVIDERS: ATTEND Internal Medicine | DX: E03.9 Hypothyroidism, unspecified (principal) ==

== ENCOUNTER → 2019-06-01 | Outpatient (REF) | payer MEDICARE ==
[2019-06-01 07:36] LABS: INR 1.83; PROTHROMBIN TIME 20.9 SECONDS (11.8-14.0)
== END ==
LOC: SKLAB4 08:39
PROVIDERS: ATTEND Internal Medicine
DX: I48.91 Unspecified atrial fibrillation (principal)

== ENCOUNTER → 2019-06-15 | Outpatient (REF) | payer MEDICARE ==
[2019-06-15 08:26] LABS: INR 2.14; PROTHROMBIN TIME 23.7 SECONDS (11.8-14.0)
== END ==
LOC: SKLAB4 10:17
PROVIDERS: ATTEND Internal Medicine
DX: I48.20 Chronic atrial fibrillation, unspecified (principal)

== ENCOUNTER → 2019-06-29 | Outpatient (REF) | payer MEDICARE ==
[2019-06-29 10:13] LABS: INR 1.58; PROTHROMBIN TIME 18.6 SECONDS (11.8-14.0)
== END ==
LOC: SKLAB4 10:06
PROVIDERS: ATTEND Internal Medicine
DX: I48.91 Unspecified atrial fibrillation (principal)

== ENCOUNTER → 2019-07-06 | Outpatient (REF) | payer MEDICARE ==
[2019-07-06 08:47] LABS: INR 1.78; PROTHROMBIN TIME 20.5 SECONDS (11.8-14.0)
== END ==
LOC: SKLAB4 10:12
PROVIDERS: ATTEND Internal Medicine
DX: I48.91 Unspecified atrial fibrillation (principal)

== ENCOUNTER → 2019-07-13 | Outpatient (REF) | payer MEDICARE ==
[2019-07-13 08:34] LABS: INR 1.62
== END ==
LOC: SKLAB4 10:42
PROVIDERS: ATTEND Internal Medicine
DX: I48.91 Unspecified atrial fibrillation (principal)

== ENCOUNTER → 2019-07-18 | Outpatient (REF) | payer MEDICARE ==
[2019-07-18 07:27] LABS: INR 1.81; PROTHROMBIN TIME 20.7 SECONDS (11.8-14.0)
== END ==
LOC: SKLAB4 11:17
PROVIDERS: ATTEND Internal Medicine
DX: I48.91 Unspecified atrial fibrillation (principal)

== ENCOUNTER → 2019-07-27 | Outpatient (REF) | payer MEDICARE ==
[2019-07-27 09:28] LABS: INR 2.25; PROTHROMBIN TIME 24.7 SECONDS (11.8-14.0)
== END ==
LOC: SKLAB4 09:56
PROVIDERS: ATTEND Internal Medicine
DX: I48.91 Unspecified atrial fibrillation (principal)

== ENCOUNTER → 2019-08-03 | Outpatient (REF) | payer MEDICARE ==
[2019-08-03 08:52] LABS: INR 2.44; PROTHROMBIN TIME 26.3 SECONDS (11.8-14.0)
== END ==
LOC: SKLAB4 11:24
PROVIDERS: ATTEND Internal Medicine
DX: I48.91 Unspecified atrial fibrillation (principal)

== ENCOUNTER → 2019-08-07 | Outpatient (REF) | payer MEDICARE ==
[2019-08-07 08:16] LABS: INR 2.29
== END ==
LOC: SKLAB4 10:22
PROVIDERS: ATTEND Internal Medicine
DX: I48.91 Unspecified atrial fibrillation (principal)

== ENCOUNTER → 2019-08-10 | Outpatient (REF) | payer MEDICARE ==
[2019-08-10 09:02] LABS: INR 1.75; PROTHROMBIN TIME 20.2 SECONDS (11.8-14.0)
== END ==
LOC: SKLAB4 08:50
PROVIDERS: ATTEND Internal Medicine
DX: I48.91 Unspecified atrial fibrillation (principal)

== ENCOUNTER → 2019-08-14 | Outpatient (REF) | payer MEDICARE ==
[2019-08-14 08:06] LABS: INR 2.51
== END ==
LOC: SKLAB5 08-10 08:52
PROVIDERS: ATTEND Internal Medicine
DX: I48.91 Unspecified atrial fibrillation (principal)

== ENCOUNTER → 2019-08-17 | Outpatient (REF) | payer MEDICARE ==
[2019-08-17 10:25] LABS: INR 2.78; PROTHROMBIN TIME 29.2 SECONDS (11.8-14.0)
== END ==
LOC: SKLAB4 11:44
PROVIDERS: ATTEND Internal Medicine
DX: I48.91 Unspecified atrial fibrillation (principal)

== ENCOUNTER → 2019-08-21 | Outpatient (REF) | payer MEDICARE ==
[2019-08-21 09:23] LABS: INR 2.63; PROTHROMBIN TIME 27.9 SECONDS (11.8-14.0)
== END ==
LOC: SKLAB4 10:19
PROVIDERS: ATTEND Internal Medicine
DX: I48.91 Unspecified atrial fibrillation (principal)

== ENCOUNTER → 2019-08-29 | Outpatient (REF) | payer MEDICARE ==
[2019-08-29 07:21] LABS: INR 2.33; PROTHROMBIN TIME 25.4 SECONDS (11.8-14.0)
[2019-08-29 07:42] LABS: ALBUMIN 3.2 GM/DL (3.2-5.2); ALT/SGPT 15 U/L (12-78); BILIRUBIN,TOTAL 0.6 MG/DL (0.2-1.0); BLOOD UREA NITROGEN 17 MG/DL (7-18); CALCIUM LEVEL 9.3 MG/DL (8.8-10.2); CARBON DIOXIDE LEVEL 28 MEQ/L (21-32); CHLORIDE LEVEL 106 MEQ/L (98-107); CREATININE FOR GFR 0.82 MG/DL (0.70-1.30); GLOMERULAR FILTRATION RATE > 60.0 (>35); GLUCOSE, FASTING 82 MG/DL (70-100); POTASSIUM SERUM 4.4 MEQ/L (3.5-5.1); SODIUM LEVEL 140 MEQ/L (136-145); TOTAL PROTEIN 6.9 GM/DL (6.4-8.2)
== END ==
LOC: SKLAB4 10:23
PROVIDERS: ATTEND Internal Medicine
DX: I48.91 Unspecified atrial fibrillation (principal); I11.9 Hypertensive heart disease without heart failure; Z79.01 Long term (current) use of anticoagulants

== ENCOUNTER → 2019-09-07 | Outpatient (REF) | payer MEDICARE ==
[2019-09-07 06:57] LABS: INR 2.76; PROTHROMBIN TIME 29.1 SECONDS (11.8-14.0)
== END ==
LOC: SKLAB4 10:56
PROVIDERS: ATTEND Internal Medicine
DX: I48.91 Unspecified atrial fibrillation (principal); Z79.01 Long term (current) use of anticoagulants

== ENCOUNTER → 2019-09-13 | Outpatient (REF) | payer MEDICARE ==
[2019-09-13 14:07] LABS: HEMATOCRIT 40.3 % (42.0-52.0); HEMOGLOBIN 12.9 g/dl (13.5-17.5); MEAN CORPUSCULAR HEMOGLOBIN 28.2 pg (27.0-33.0); PLATELET COUNT, AUTOMATED 238 10^3/uL (150-450); RED BLOOD COUNT 4.58 10^6/uL (4.30-6.10); WHITE BLOOD COUNT 13.4 10^3/uL (4.0-10.0)
[2019-09-13 14:30] LABS: BLOOD UREA NITROGEN 21 MG/DL (7-18); CALCIUM LEVEL 8.7 MG/DL (8.8-10.2); CARBON DIOXIDE LEVEL 25 MEQ/L (21-32); CHLORIDE LEVEL 107 MEQ/L (98-107); CREATININE FOR GFR 0.94 MG/DL (0.70-1.30); GLOMERULAR FILTRATION RATE > 60.0 (>35); GLUCOSE, FASTING 164 MG/DL (70-100); POTASSIUM SERUM 4.4 MEQ/L (3.5-5.1); SODIUM LEVEL 140 MEQ/L (136-145)
--- NOTE | 2019-09-13 17:00 | REP ---
CHEST, SINGLE VIEW: Single view of the chest is performed and compared to several prior studies, most recently 02/14/2019. Chronic bibasilar interstitial changes appear stable. No new infiltrate is seen. There is mild cardiomegaly. There is calcification of the thoracic aorta. Mediastinal silhouette is unchanged. Left single lead pacemaker is noted. IMPRESSION: Cardiomegaly and chronic changes appear stable with no evidence of acute infiltrate. Electronically Signed by Azar Francis MD 09/14/2019 11:53 A
== END ==
LOC: SKLAB4 11:36
PROVIDERS: ATTEND Internal Medicine
DX: R50.9 Fever, unspecified (principal); J06.9 Acute upper respiratory infection, unspecified; I51.7 Cardiomegaly
CPT/HCPCS: 36415; 71045; 80048; 85027; 87486; 87581; 87633; 87798; U0002

== ENCOUNTER → 2019-09-14 | Outpatient (REF) | payer MEDICARE ==
[2019-09-14 09:45] LABS: INR 3.44; PROTHROMBIN TIME 34.7 SECONDS (11.8-14.0)
== END ==
LOC: SKLAB4 10:19
PROVIDERS: ATTEND Internal Medicine
DX: I48.91 Unspecified atrial fibrillation (principal)

== ENCOUNTER → 2019-09-17 | Outpatient (REF) | payer MEDICARE ==
[2019-09-17 08:40] LABS: INR 1.42
== END ==
LOC: SKLAB4 09:48
PROVIDERS: ATTEND Internal Medicine
DX: Z51.81 Encounter for therapeutic drug level monitoring (principal); Z79.01 Long term (current) use of anticoagulants

== ENCOUNTER → 2019-09-18 | Outpatient (REF) | payer MEDICARE | LOC: SKLAB4 07:11 | PROVIDERS: ATTEND Internal Medicine | DX: I48.91 Unspecified atrial fibrillation (principal) ==

== ENCOUNTER → 2019-09-21 | Outpatient (REF) | payer MEDICARE ==
[2019-09-21 09:50] LABS: INR 1.59; PROTHROMBIN TIME 18.7 SECONDS (11.8-14.0)
== END ==
LOC: SKLAB4 09:46
PROVIDERS: ATTEND Internal Medicine
DX: I48.91 Unspecified atrial fibrillation (principal)

== ENCOUNTER → 2019-09-28 | Outpatient (REF) | payer MEDICARE ==
[2019-09-28 08:57] LABS: HEMATOCRIT 44.2 % (42.0-52.0); HEMOGLOBIN 13.8 g/dl (13.5-17.5); MEAN CORPUSCULAR HEMOGLOBIN 27.6 pg (27.0-33.0); MEAN CORPUSCULAR HGB CONC 31.2 g/dl (32.0-36.5); MEAN CORPUSCULAR VOLUME 88.4 fl (80.0-96.0); PLATELET COUNT, AUTOMATED 270 10^3/uL (150-450); WHITE BLOOD COUNT 6.9 10^3/uL (4.0-10.0)
[2019-09-28 09:24] LABS: INR 2.24; PROTHROMBIN TIME 24.6 SECONDS (11.8-14.0)
== END ==
LOC: SKLAB4 10:27
PROVIDERS: ATTEND Internal Medicine
DX: I48.91 Unspecified atrial fibrillation (principal); E03.9 Hypothyroidism, unspecified

== ENCOUNTER → 2019-10-05 | Outpatient (REF) | payer MEDICARE ==
[2019-10-05 09:32] LABS: INR 2.46; PROTHROMBIN TIME 26.5 SECONDS (11.8-14.0)
== END ==
LOC: SKLAB4 07:27
PROVIDERS: ATTEND Internal Medicine
DX: Z51.81 Encounter for therapeutic drug level monitoring (principal); Z79.01 Long term (current) use of anticoagulants; I48.91 Unspecified atrial fibrillation

== ENCOUNTER → 2019-10-12 | Outpatient (REF) | payer MEDICARE ==
[2019-10-12 10:23] LABS: INR 2.54; PROTHROMBIN TIME 27.2 SECONDS (11.8-14.0)
== END ==
LOC: SKLAB4 10:07
PROVIDERS: ATTEND Internal Medicine
DX: I48.91 Unspecified atrial fibrillation (principal)

== ENCOUNTER → 2019-10-19 | Outpatient (REF) | payer MEDICARE ==
[2019-10-19 08:27] LABS: INR 2.79; PROTHROMBIN TIME 29.3 SECONDS (11.8-14.0)
== END ==
LOC: SKLAB4 07:42
PROVIDERS: ATTEND Internal Medicine
DX: I48.91 Unspecified atrial fibrillation (principal)

== ENCOUNTER → 2019-10-26 | Outpatient (REF) | payer MEDICARE ==
[2019-10-26 08:39] LABS: INR 2.18; PROTHROMBIN TIME 24.1 SECONDS (11.8-14.0)
== END ==
LOC: SKLAB4 07:54
PROVIDERS: ATTEND Internal Medicine
DX: I48.91 Unspecified atrial fibrillation (principal)

== ENCOUNTER → 2019-11-02 | Outpatient (REF) | payer MEDICARE ==
[2019-11-02 10:06] LABS: INR 2.08; PROTHROMBIN TIME 23.2 SECONDS (11.8-14.0)
== END ==
LOC: SKLAB4 07:53
PROVIDERS: ATTEND Internal Medicine
DX: I48.91 Unspecified atrial fibrillation (principal)

== ENCOUNTER → 2019-11-09 | Outpatient (REF) | payer MEDICARE ==
[2019-11-09 09:31] LABS: INR 2.36; PROTHROMBIN TIME 25.6 SECONDS (11.8-14.0)
== END ==
LOC: SKLAB4 09:39
PROVIDERS: ATTEND Internal Medicine
DX: I48.91 Unspecified atrial fibrillation (principal)

== ENCOUNTER → 2019-11-16 | Outpatient (REF) | payer MEDICARE ==
[2019-11-16 08:16] LABS: INR 1.97; PROTHROMBIN TIME 22.2 SECONDS (11.8-14.0)
== END ==
LOC: SKLAB4 10:53
PROVIDERS: ATTEND Internal Medicine
DX: I48.91 Unspecified atrial fibrillation (principal)

== ENCOUNTER → 2019-11-23 | Outpatient (REF) | payer MEDICARE ==
[2019-11-23 09:59] LABS: INR 2.15; PROTHROMBIN TIME 23.8 SECONDS (11.8-14.0)
== END ==
LOC: SKLAB4 09:39
PROVIDERS: ATTEND Internal Medicine
DX: I48.91 Unspecified atrial fibrillation (principal)

== ENCOUNTER → 2019-11-30 | Outpatient (REF) | payer MEDICARE ==
[~2019-11-30] MED LIST changes: -MELA3TAB63 PO; +MELA3TAB70 PO; -QUET1TAB7 PO; +QUET25TA3 PO
[2019-11-30 09:22] LABS: INR 2.47; PROTHROMBIN TIME 26.6 SECONDS (11.8-14.0)
== END ==
LOC: SKLAB4 12:28
PROVIDERS: ATTEND Internal Medicine
DX: I48.91 Unspecified atrial fibrillation (principal)

== ENCOUNTER → 2019-12-07 | Outpatient (REF) | payer MEDICARE ==
[~2019-12-07] MED LIST changes: +MELA3TAB63 PO; -MELA3TAB70 PO; +QUET1TAB7 PO; -QUET25TA3 PO
[2019-12-07 08:38] LABS: INR 2.17
== END ==
LOC: SKLAB4 12:07
PROVIDERS: ATTEND Internal Medicine
DX: I48.91 Unspecified atrial fibrillation (principal)

== ENCOUNTER → 2019-12-14 | Outpatient (REF) | payer MEDICARE ==
[2019-12-14 09:53] LABS: INR 1.86; PROTHROMBIN TIME 21.2 SECONDS (11.8-14.0)
== END ==
LOC: SKLAB4 10:01
PROVIDERS: ATTEND Internal Medicine
DX: I48.91 Unspecified atrial fibrillation (principal)

== ENCOUNTER → 2019-12-21 | Outpatient (REF) | payer MEDICARE ==
[2019-12-21 12:24] LABS: INR 2.18; PROTHROMBIN TIME 24.1 SECONDS (11.8-14.0)
== END ==
LOC: SKLAB4 14:48
PROVIDERS: ATTEND Internal Medicine
DX: I48.91 Unspecified atrial fibrillation (principal)

== ENCOUNTER → 2019-12-28 | Outpatient (REF) | payer MEDICARE ==
[2019-12-28 08:07] LABS: INR 1.96; PROTHROMBIN TIME 22.1 SECONDS (11.8-14.0)
== END ==
LOC: SKLAB5 09:40
PROVIDERS: ATTEND Internal Medicine
DX: I48.91 Unspecified atrial fibrillation (principal); E03.9 Hypothyroidism, unspecified

== ENCOUNTER → 2020-01-04 | Outpatient (REF) | payer MEDICARE ==
[2020-02-16 10:43] LABS: INR 2.21
== END ==
LOC: SKLAB4 09:52
PROVIDERS: ATTEND Internal Medicine
DX: I48.91 Unspecified atrial fibrillation (principal); Z79.01 Long term (current) use of anticoagulants

== ENCOUNTER → 2020-01-11 | Outpatient (REF) | payer MEDICARE ==
[2020-03-20 14:28] LABS: INR 2.2; PROTHROMBIN TIME 24.9 SECONDS (12.5-14.3)
== END ==
LOC: SKLAB4 08:09
PROVIDERS: ATTEND Internal Medicine
DX: I48.91 Unspecified atrial fibrillation (principal)

== ENCOUNTER → 2020-01-18 | Outpatient (REF) | payer MEDICARE ==
[2020-03-10 17:29] LABS: INR 1.94; PROTHROMBIN TIME 22.6 SECONDS (12.5-14.3)
== END ==
LOC: SKLAB4 08:54
PROVIDERS: ATTEND Internal Medicine
DX: I48.91 Unspecified atrial fibrillation (principal)

== ENCOUNTER → 2020-01-25 | Outpatient (REF) | payer MEDICARE ==
[2020-01-25 13:22] LABS: INR 2.16; PROTHROMBIN TIME 24.6 SECONDS (11.8-14.0)
== END ==
LOC: SKLAB4 08:00
PROVIDERS: ATTEND Internal Medicine
DX: I48.91 Unspecified atrial fibrillation (principal)

== ENCOUNTER → 2020-02-01 | Outpatient (REF) | payer MEDICARE ==
[2020-02-01 11:02] LABS: INR 1.92; PROTHROMBIN TIME 22.4 SECONDS (11.8-14.0)
== END ==
LOC: SKLAB5 10:33
PROVIDERS: ATTEND Internal Medicine
DX: I48.91 Unspecified atrial fibrillation (principal)

== ENCOUNTER → 2020-02-08 | Outpatient (REF) | payer MEDICARE ==
[2020-02-08 10:30] LABS: INR 1.97; PROTHROMBIN TIME 22.9 SECONDS (11.8-14.0)
== END ==
LOC: SKLAB4 06:49
PROVIDERS: ATTEND Internal Medicine
DX: I48.91 Unspecified atrial fibrillation (principal)

== ENCOUNTER → 2020-02-15 | Outpatient (REF) | payer MEDICARE ==
[2020-02-15 08:42] LABS: INR 1.86; PROTHROMBIN TIME 21.8 SECONDS (11.8-14.0)
== END ==
LOC: SKLAB4 10:44
PROVIDERS: ATTEND Internal Medicine
DX: I48.91 Unspecified atrial fibrillation (principal)

== ENCOUNTER → 2020-02-22 | Outpatient (REF) | payer MEDICARE ==
[2020-02-22 09:27] LABS: INR 2.32
[2020-02-22 09:39] LABS: ALBUMIN 3.2 GM/DL (3.2-5.2); ALT/SGPT 20 U/L (12-78); BILIRUBIN,TOTAL 0.7 MG/DL (0.2-1.0); BLOOD UREA NITROGEN 19 MG/DL (7-18); CALCIUM LEVEL 9.2 MG/DL (8.8-10.2); CARBON DIOXIDE LEVEL 24 MEQ/L (21-32); CHLORIDE LEVEL 107 MEQ/L (98-107); CREATININE FOR GFR 0.98 MG/DL (0.70-1.30); GLOMERULAR FILTRATION RATE > 60.0 (>35); GLUCOSE, FASTING 130 MG/DL (70-100); POTASSIUM SERUM 3.7 MEQ/L (3.5-5.1); SODIUM LEVEL 139 MEQ/L (136-145); TOTAL PROTEIN 7.6 GM/DL (6.4-8.2)
== END ==
LOC: SKLAB4 11:15
PROVIDERS: ATTEND Internal Medicine
DX: I48.91 Unspecified atrial fibrillation (principal); F03.90 Unspecified dementia, unspecified severity, without behavioral disturbance, psychotic disturbance, mood disturbance, and anxiety

== ENCOUNTER → 2020-02-29 | Outpatient (REF) | payer MEDICARE ==
[2020-02-29 08:12] LABS: INR 2.18; PROTHROMBIN TIME 24.8 SECONDS (12.5-14.3)
== END ==
LOC: SKLAB4 07:33
PROVIDERS: ATTEND Internal Medicine
DX: I48.91 Unspecified atrial fibrillation (principal); Z79.899 Other long term (current) drug therapy

== ENCOUNTER → 2020-03-07 | Outpatient (REF) | payer MEDICARE ==
[2020-03-07 08:37] LABS: INR 1.88
== END ==
LOC: SKLAB4 07:15
PROVIDERS: ATTEND Internal Medicine
DX: I48.91 Unspecified atrial fibrillation (principal)

== ENCOUNTER → 2020-03-14 | Outpatient (REF) | payer MEDICARE ==
[2020-03-14 09:10] LABS: INR 1.69; PROTHROMBIN TIME 20.2 SECONDS (12.5-14.3)
== END ==
LOC: SKLAB4 10:50
PROVIDERS: ATTEND Internal Medicine
DX: I48.91 Unspecified atrial fibrillation (principal)

== ENCOUNTER → 2020-03-21 | Outpatient (REF) | payer MEDICARE ==
[2020-03-21 10:42] LABS: INR 2.39; PROTHROMBIN TIME 26.6 SECONDS (12.5-14.3)
== END ==
LOC: SKLAB4 11:00
PROVIDERS: ATTEND Internal Medicine
DX: I48.91 Unspecified atrial fibrillation (principal)

== ENCOUNTER → 2020-03-28 | Outpatient (REF) | payer MEDICARE ==
[2020-03-28 09:20] LABS: HEMATOCRIT 46.9 % (42.0-52.0); HEMOGLOBIN 14.5 g/dl (13.5-17.5); MEAN CORPUSCULAR HEMOGLOBIN 27.8 pg (27.0-33.0); MEAN CORPUSCULAR HGB CONC 30.9 g/dl (32.0-36.5); MEAN CORPUSCULAR VOLUME 89.8 fl (80.0-96.0); PLATELET COUNT, AUTOMATED 299 10^3/uL (150-450); RED BLOOD COUNT 5.22 10^6/uL (4.30-6.10); WHITE BLOOD COUNT 6.7 10^3/uL (4.0-10.0)
[2020-03-28 09:32] LABS: INR 3.15; PROTHROMBIN TIME 33.1 SECONDS (12.5-14.3)
== END ==
LOC: SKLAB4 13:44
PROVIDERS: ATTEND Internal Medicine
DX: I48.91 Unspecified atrial fibrillation (principal); Z79.01 Long term (current) use of anticoagulants

== ENCOUNTER → 2020-04-04 | Outpatient (REF) | payer MEDICARE ==
[2020-04-04 08:02] LABS: INR 2.87; PROTHROMBIN TIME 30.7 SECONDS (12.5-14.3)
== END ==
LOC: SKLAB4 07:23
PROVIDERS: ATTEND Internal Medicine
DX: I48.91 Unspecified atrial fibrillation (principal)

== ENCOUNTER → 2020-04-11 | Outpatient (REF) | payer MEDICARE ==
[2020-04-11 09:27] LABS: PROTHROMBIN TIME 31.8 SECONDS (12.5-14.3)
== END ==
LOC: SKLAB4 10:39
PROVIDERS: ATTEND Internal Medicine
DX: I48.91 Unspecified atrial fibrillation (principal)

== ENCOUNTER → 2020-04-18 | Outpatient (REF) | payer MEDICARE ==
[2020-04-18 08:26] LABS: INR 3.15; PROTHROMBIN TIME 33.1 SECONDS (12.5-14.3)
== END ==
LOC: SKLAB4 12:17
PROVIDERS: ATTEND Internal Medicine
DX: Z20.828 Contact with and (suspected) exposure to other viral communicable diseases (principal); I48.91 Unspecified atrial fibrillation

== ENCOUNTER → 2020-04-24 | Outpatient (REF) | payer MEDICARE ==
[~2020-04-24] MED LIST changes: -MELA3TAB63 PO; +MELA3TAB70 PO; -QUET1TAB7 PO; +QUET25TA3 PO
== END ==
LOC: SKLAB4 04-23 11:17 → EDSTATUS 05-22 13:34
PROVIDERS: ATTEND Internal Medicine
DX: Z20.828 Contact with and (suspected) exposure to other viral communicable diseases (principal)

== ENCOUNTER → 2020-04-25 | Outpatient (REF) | payer MEDICARE ==
[~2020-04-25] MED LIST changes: +MELA3TAB63 PO; -MELA3TAB70 PO; +QUET1TAB7 PO; -QUET25TA3 PO
[2020-04-25 11:31] LABS: INR 2.77; PROTHROMBIN TIME 29.9 SECONDS (12.5-14.3)
== END ==
LOC: SKLAB4 11:16
PROVIDERS: ATTEND Internal Medicine
DX: I48.91 Unspecified atrial fibrillation (principal)

== ENCOUNTER → 2020-05-01 | Outpatient (REF) | payer MEDICARE ==
[~2020-05-01] MED LIST changes: -MELA3TAB63 PO; +MELA3TAB70 PO
[2020-05-01 08:27] LABS: INR 2.38; PROTHROMBIN TIME 26.5 SECONDS (12.5-14.3)
== END ==
LOC: SKLAB4 09:16
PROVIDERS: ATTEND Internal Medicine
DX: I48.91 Unspecified atrial fibrillation (principal)

== ENCOUNTER → 2020-05-01 | Outpatient (REF) | payer MEDICARE ==
[~2020-05-01] MED LIST changes: -QUET1TAB7 PO; +QUET25TA3 PO
== END ==
LOC: SKLAB4 08:00
PROVIDERS: ATTEND Internal Medicine
DX: Z20.828 Contact with and (suspected) exposure to other viral communicable diseases (principal)

== ENCOUNTER → 2020-05-08 | Outpatient (REF) | payer MEDICARE ==
[~2020-05-08] MED LIST changes: +QUET1TAB7 PO; -QUET25TA3 PO
== END ==
LOC: SKLAB4 10:38
PROVIDERS: ATTEND Internal Medicine
DX: Z53.9 Procedure and treatment not carried out, unspecified reason (principal)

== ENCOUNTER → 2020-05-08 | Outpatient (REF) | payer MEDICARE ==
[~2020-05-08] MED LIST changes: -QUET1TAB7 PO; +QUET25TA3 PO
[2020-05-08 18:08] LABS: INFLUENZA A AMPLIFICATION NEGATIVE (NEGATIVE); INFLUENZA B AMPLIFICATION NEGATIVE (NEGATIVE)
== END ==
LOC: SKLAB4 08:00
PROVIDERS: ATTEND Internal Medicine
DX: Z20.828 Contact with and (suspected) exposure to other viral communicable diseases (principal); Z11.59 Encounter for screening for other viral diseases
CPT/HCPCS: 87502; U0003

== ENCOUNTER → 2020-05-09 | Outpatient (REF) | payer MEDICARE ==
[~2020-05-09] MED LIST changes: +QUET1TAB7 PO; -QUET25TA3 PO
[2020-05-09 08:22] LABS: INR 1.75; PROTHROMBIN TIME 20.8 SECONDS (12.5-14.3)
== END ==
LOC: SKLAB4 06:53
PROVIDERS: ATTEND Internal Medicine
DX: I48.91 Unspecified atrial fibrillation (principal); Z79.899 Other long term (current) drug therapy

== ENCOUNTER → 2020-05-15 | Outpatient (REF) | payer MEDICARE | LOC: SKLAB4 07:53 | PROVIDERS: ATTEND Internal Medicine | DX: Z20.828 Contact with and (suspected) exposure to other viral communicable diseases (principal) ==

== ENCOUNTER → 2020-05-16 | Outpatient (REF) | payer MEDICARE ==
[2020-05-16 09:27] LABS: INR 2.53; PROTHROMBIN TIME 27.8 SECONDS (12.5-14.3)
== END ==
LOC: SKLAB4 12:16
PROVIDERS: ATTEND Internal Medicine
DX: I48.91 Unspecified atrial fibrillation (principal)

== ENCOUNTER → 2020-05-22 | Outpatient (REF) | payer MEDICARE | LOC: SKLAB4 08:31 | PROVIDERS: ATTEND Internal Medicine | DX: Z20.828 Contact with and (suspected) exposure to other viral communicable diseases (principal) ==

== ENCOUNTER → 2020-05-23 | Outpatient (REF) | payer MEDICARE ==
[2020-05-23 12:28] LABS: INR 2.96; PROTHROMBIN TIME 31.5 SECONDS (12.5-14.3)
== END ==
LOC: SKLAB4 06:46
PROVIDERS: ATTEND Internal Medicine
DX: I48.91 Unspecified atrial fibrillation (principal); Z79.899 Other long term (current) drug therapy

== ENCOUNTER → 2020-05-29 | Outpatient (REF) | payer MEDICARE | LOC: SKLAB4 06:28 | PROVIDERS: ATTEND Internal Medicine | DX: Z20.828 Contact with and (suspected) exposure to other viral communicable diseases (principal) ==

== ENCOUNTER → 2020-05-30 | Outpatient (REF) | payer MEDICARE ==
[2020-05-30 08:31] LABS: INR 3.15; PROTHROMBIN TIME 33.1 SECONDS (12.5-14.3)
== END ==
LOC: SKLAB4 06:47
PROVIDERS: ATTEND Internal Medicine
DX: I48.91 Unspecified atrial fibrillation (principal); Z79.899 Other long term (current) drug therapy

== ENCOUNTER → 2020-06-05 | Outpatient (REF) | payer MEDICARE | LOC: SKLAB4 06:10 | PROVIDERS: ATTEND Internal Medicine | DX: Z20.828 Contact with and (suspected) exposure to other viral communicable diseases (principal) ==

== ENCOUNTER → 2020-06-06 | Outpatient (REF) | payer MEDICARE ==
[2020-06-06 10:21] LABS: INR 3.24; PROTHROMBIN TIME 33.8 SECONDS (12.5-14.3)
== END ==
LOC: SKLAB4 06:30
PROVIDERS: ATTEND Internal Medicine
DX: I48.91 Unspecified atrial fibrillation (principal)

== ENCOUNTER → 2020-06-12 | Outpatient (REF) | payer MEDICARE | LOC: SKLAB4 06:42 | PROVIDERS: ATTEND Internal Medicine | DX: Z11.52 Encounter for screening for COVID-19 (principal) ==

== ENCOUNTER → 2020-06-13 | Outpatient (REF) | payer MEDICARE ==
[2020-06-13 11:06] LABS: INR 1.65; PROTHROMBIN TIME 19.9 SECONDS (12.5-14.3)
== END ==
LOC: SKLAB4 12:51
PROVIDERS: ATTEND Internal Medicine
DX: I48.91 Unspecified atrial fibrillation (principal)

== ENCOUNTER → 2020-06-19 | Outpatient (REF) | payer MEDICARE | LOC: SKLAB4 06:20 | PROVIDERS: ATTEND Internal Medicine | DX: Z20.822 Contact with and (suspected) exposure to COVID-19 (principal) ==

== ENCOUNTER → 2020-06-20 | Outpatient (REF) | payer MEDICARE ==
[2020-06-20 08:55] LABS: INR 2.03; PROTHROMBIN TIME 23.4 SECONDS (12.5-14.3)
== END ==
LOC: SKLAB4 08:42
PROVIDERS: ATTEND Internal Medicine
DX: I48.91 Unspecified atrial fibrillation (principal)

== ENCOUNTER → 2020-06-24 | Outpatient (REF) | payer MEDICARE ==
[~2020-06-24] MED LIST changes: -QUET1TAB7 PO; +QUET25TA3 PO
== END ==
LOC: SKLAB4 14:02
PROVIDERS: ATTEND Internal Medicine
DX: J06.9 Acute upper respiratory infection, unspecified (principal)

== ENCOUNTER → 2020-06-26 | Outpatient (REF) | payer MEDICARE | LOC: SKLAB4 06:54 | PROVIDERS: ATTEND Internal Medicine | DX: Z20.822 Contact with and (suspected) exposure to COVID-19 (principal) ==

== ENCOUNTER → 2020-06-27 | Outpatient (REF) | payer MEDICARE ==
[2020-06-27 09:27] LABS: INR 1.99
== END ==
LOC: SKLAB4 11:05
PROVIDERS: ATTEND Internal Medicine
DX: I48.91 Unspecified atrial fibrillation (principal)

== ENCOUNTER → 2020-07-03 | Outpatient (REF) | payer MEDICARE | LOC: SKLAB4 06:26 | PROVIDERS: ATTEND Internal Medicine | DX: Z20.822 Contact with and (suspected) exposure to COVID-19 (principal) ==

== ENCOUNTER → 2020-07-04 | Outpatient (REF) | payer MEDICARE ==
[~2020-07-04] MED LIST changes: +QUET1TAB7 PO; -QUET25TA3 PO
[2020-07-04 12:24] LABS: INR 2.79; PROTHROMBIN TIME 30.1 SECONDS (12.5-14.3)
== END ==
LOC: SKLAB4 07:17
PROVIDERS: ATTEND Internal Medicine
DX: I48.91 Unspecified atrial fibrillation (principal); Z79.899 Other long term (current) drug therapy

== ENCOUNTER → 2020-07-10 | Outpatient (REF) | payer MEDICARE | LOC: SKLAB4 06:59 | PROVIDERS: ATTEND Internal Medicine | DX: Z20.822 Contact with and (suspected) exposure to COVID-19 (principal) ==

== ENCOUNTER → 2020-07-11 | Outpatient (REF) | payer MEDICARE ==
[~2020-07-11] MED LIST changes: -QUET1TAB7 PO; +QUET25TA3 PO
[2020-07-11 12:08] LABS: INR 1.56
== END ==
LOC: SKLAB4 10:40
PROVIDERS: ATTEND Internal Medicine
DX: I48.91 Unspecified atrial fibrillation (principal)

== ENCOUNTER → 2020-07-17 | Outpatient (REF) | payer MEDICARE | LOC: SKLAB4 06:46 | PROVIDERS: ATTEND Internal Medicine | DX: Z20.822 Contact with and (suspected) exposure to COVID-19 (principal) ==

== ENCOUNTER → 2020-07-18 | Outpatient (REF) | payer MEDICARE ==
[2020-07-18 09:57] LABS: INR 3.21; PROTHROMBIN TIME 33.6 SECONDS (12.5-14.3)
== END ==
LOC: SKLAB4 08:45
PROVIDERS: ATTEND Internal Medicine
DX: I48.91 Unspecified atrial fibrillation (principal); Z79.01 Long term (current) use of anticoagulants

== ENCOUNTER → 2020-07-24 | Outpatient (REF) | payer MEDICARE | LOC: SKLAB4 06:13 | PROVIDERS: ATTEND Internal Medicine | DX: Z20.822 Contact with and (suspected) exposure to COVID-19 (principal) ==

== ENCOUNTER → 2020-07-25 | Outpatient (REF) | payer MEDICARE ==
[2020-07-25 09:30] LABS: INR 1.64; PROTHROMBIN TIME 19.8 SECONDS (12.5-14.3)
== END ==
LOC: SKLAB4 11:39
PROVIDERS: ATTEND Internal Medicine
DX: I48.91 Unspecified atrial fibrillation (principal)

== ENCOUNTER → 2020-07-31 | Outpatient (REF) | payer MEDICARE ==
[~2020-07-31] MED LIST changes: +ACET1TAB55 PO; +ACET650S3 PR; +KETO2SHA8 TOP; +LEVO500T3 PO; +MOM30SS PO; +WARF-20 PO
== END ==
LOC: SKLAB4 06:48
PROVIDERS: ATTEND Internal Medicine
DX: Z20.822 Contact with and (suspected) exposure to COVID-19 (principal)

== ENCOUNTER → 2020-08-01 | Outpatient (REF) | payer MEDICARE ==
[2020-08-01 08:52] LABS: INR 2.39; PROTHROMBIN TIME 26.6 SECONDS (12.5-14.3)
== END ==
LOC: SKLAB4 11:31
PROVIDERS: ATTEND Internal Medicine
DX: I48.91 Unspecified atrial fibrillation (principal); Z79.899 Other long term (current) drug therapy

== ENCOUNTER 2020-08-03 20:34 | Observation (INO) | payer MEDICARE ==
[~2020-08-03] VITALS: Ht 167.6 cm; Wt 59.9 kg
[~2020-08-03 20:34] MED LIST changes: -ACET1TAB55 PO; -ACET650S3 PR; -KETO2SHA8 TOP; -LEVO500T3 PO; -MOM30SS PO; -WARF-20 PO
[2020-08-03] MEDS ORDERED: ACET650S3 PR (20:54)
[2020-08-03] MEDS ORDERED: WARF-20 PO (20:59)
--- NOTE | 2020-08-03 21:53 | REPVR ---
PROCEDURE INFORMATION: Exam: XR Chest Exam date and time: 08/03/20 (9:30pm) Age: 85 years old Clinical indication: Sepsis / shock TECHNIQUE: Imaging protocol: Portable CXR Views: 1 view COMPARISON: Portable CXR of 09/13/19 FINDINGS: Comparison is made with a portable CXR done on 09/13/19. Stable cardiomegaly. No gross failure. Single-chamber pacemaker electrode remains in place (lead in the right ventricle). Hazy opacity at the left lung base. The left hemidiaphragm and left costophrenic angle are obscured. The lung krishna are otherwise clear. No pneumothorax. IMPRESSION: Stable cardiomegaly. Suspect LLL pneumonia and a small left pleural effusion. The lung krishna are otherwise clear. Follow-up is suggested. Electronically signed by: Zari Alfaro On 08/03/2020 21:53:24 PM
[2020-08-03 22:10] LABS: BASO % 0.2 % (0.0-1.0); EOS # 0.1 10^3/uL (0.0-0.5); HEMATOCRIT 43.1 % (42.0-52.0); HEMOGLOBIN 13.4 g/dl (13.5-17.5); LYMPH # 1.3 10^3/uL (1.5-5.0); LYMPH % 15.2 % (24.0-44.0); MEAN CORPUSCULAR HEMOGLOBIN 27.8 pg (27.0-33.0); MEAN CORPUSCULAR HGB CONC 31.1 g/dl (32.0-36.5); MEAN CORPUSCULAR VOLUME 89.4 fl (80.0-96.0); MONO # 0.8 10^3/uL (0.0-0.8); MONO % 9.7 % (2.0-8.0); NEUTROPHILS # 6.3 10^3/uL (1.5-8.5); NEUTROPHILS % 73.3 % (36.0-66.0); PLATELET COUNT, AUTOMATED 248 10^3/uL (150-450); RED BLOOD COUNT 4.82 10^6/uL (4.30-6.10); WHITE BLOOD COUNT 8.7 10^3/uL (4.0-10.0)
[2020-08-03 22:29] LABS: INR 2.9; PARTIAL THROMBOPLASTIN TIME 41.9 SECONDS (24.2-38.5)
[2020-08-03 22:40] LABS: ALBUMIN 3.3 GM/DL (3.2-5.2); ALT/SGPT 21 U/L (12-78); BILIRUBIN,DIRECT 0.1 MG/DL (0.0-0.2); BILIRUBIN,TOTAL 0.3 MG/DL (0.2-1.0); BLOOD UREA NITROGEN 26 MG/DL (7-18); CALCIUM LEVEL 8.4 MG/DL (8.8-10.2); CARBON DIOXIDE LEVEL 26 MEQ/L (21-32); CHLORIDE LEVEL 111 MEQ/L (98-107); CK-MB VALUE MASS 3.8 NG/ML (<3.6); CPK CREATINE PHOSPHOKINASE 134 U/L (39-308); CREATININE FOR GFR 1.03 MG/DL (0.70-1.30); GLOMERULAR FILTRATION RATE > 60.0 (>35); GLUCOSE, FASTING 102 MG/DL (70-100); MB/CK RELATIVE INDEX 2.84 (< OR =4); POTASSIUM SERUM 4.5 MEQ/L (3.5-5.1); SODIUM LEVEL 142 MEQ/L (136-145); TOTAL PROTEIN 6.9 GM/DL (6.4-8.2); TROPONIN I 0.03 NG/ML (< 0.10)
[2020-08-03] MEDS ORDERED: VANCOMYCIN HCL 1,250 MG in IV FLUID PLACE HOLDER 1 EA IV ONE (23:10)
[2020-08-03] MEDS ORDERED: PIPERACILLIN/TAZOBACTAM SOD 4.5 GM in D5W MINI-BAG PLUS 50 ML IV ONE (23:10)
[2020-08-03] MEDS ORDERED: LR 1,000 ML IV ONE (23:15)
[2020-08-03] MEDS ORDERED: KETO2SHA8 TOP (23:45)
[2020-08-03] MEDS ORDERED: ACET1TAB55 PO (23:45)
[2020-08-03] MEDS ORDERED: MOM30SS PO (23:45)
[2020-08-04] MEDS ORDERED: VANCOMYCIN HCL 750 MG, VIAL MATE ADAPTER 1 EACH in NS 250 ML IV ONE ×3
[2020-08-04] MEDS ORDERED: MOM 30ML SUSPENSION UDC PO PRN (00:50)
[2020-08-04] MEDS ORDERED: ACETAMINOPHEN TAB 650MG DOSE (2X325MG) PO PRN (00:50)
[2020-08-04] MEDS ORDERED: MAALOX 30 ML SUSP *UDC PO PRN (00:50)
--- NOTE | 2020-08-04 00:54 | HPEPDOC ---
[facility] Medical History & Physical Date of Admission Aug 04, 2020 Date of Service: Aug 04, 2020 Primary Care Physician: Jr Carbajal Collins Attending Physician: SANDRA MARLOW MD History and Physical TIME OF SERVICE: 1257am CHIEF COMPLAINT: fever HISTORY OF PRESENT ILLNESS: The history was obtained from & via chart review the patient has advanced dementia and is not able to provide any history. This 85 yr old [facility] resident was noted to be having apneic episodes with a rectal tem of 101 and O2 sats of 86% on RA. Per when the patient arrived in the ER all of his vitals were wnl and he was sating well on RA. Chest xray showed possible LLL PNA therefore he was started on abx. REVIEW OF SYSTEMS: unobtainable bc the patient has advanced dementia PAST MEDICAL/ SURGICAL HISTORY: Advanced alzheimers dementia with behavioral disturbance Long standing persistent a fib Hypothyrodism Bilateral carotid stenosis Essential HTN CKD3 Chronic Anemia DLP Hx of prostate cancer Debility/unsteady gait Right colectomy Pacemaker placement Left inguinal hernia repair DNR/DNI SOCIAL HISTORY: Former smoker quit in 2004 / [facility] resident FAMILY HISTORY: unobtainable bc the patient has dementia ALLERGIES: Please see below. HOME MEDICATIONS: Please see below. PHYSICAL EXAMINATION: Vital Signs Date Time Temp Pulse Resp B/P (MAP) Pulse Ox O2 Delivery O2 Flow Rate FiO2 08/03/20 20:45 98.5 91 18 127/75 97 Room Air GENERAL APPEARANCE: well nourished and developed/ reclined in hospital appears comfortable & is not in distress HEENT: EOMI / mask covering mouth CARDIOVASCULAR: pacemaker palpable at left upper chest / RRR/NMRG LUNGS: CTAB on RA ABDOMEN: he doesnt grimace w palpation INTEGUMENT: not flushed, pale or diaphoretic PSYCHIATRIC: alert, but not speaking, not tracking my movements and not following commands LABORATORY DATA: 08/03/20 22:02 Prothrombin Time 31.0H, Prothromb Time International Ratio 2.90, Activated Partial Thromboplast Time 41.9H 08/03/20 22:02: Immature Granulocyte % (Auto) 0.6, Neutrophils (%) (Auto) 73.3H, Lymphocytes (%) (Auto) 15.2L, Monocytes (%) (Auto) 9.7H, Eosinophils (%) (Auto) 1.0, Basophils (%) (Auto) 0.2, Neutrophils # (Auto) 6.3, Lymphocytes # (Auto) 1.3L, Monocytes # (Auto) 0.8, Eosinophils # (Auto) 0.1, Basophils # (Auto) 0.0, Nucleated Red Blood Cells % (auto) 0.0, Urine Color YELLOW, Urine Appearance CLEAR, Urine pH 6.0, Urine Specific [place] 1.020, Urine Protein 1+H, Urine Glucose (UA) NEGATIVE, Urine Ketones NEGATIVE, Urine Blood 1+H, Urine Nitrite NEGATIVE, Urine Bilirubin NEGATIVE, Urine Urobilinogen 0.2, Urine Leukocyte Esterase NEGATIVE, Urine WBC (Auto) 1, Urine RBC (Auto) 15H, Urine Hyaline Casts (Auto) 3, Urine Bacteria (Auto) NEGATIVE, Urine Squamous Epithelial Cells 0, Urine Mucus (Auto) SMALL, Urine Sperm (Auto) , Anion Gap 5L, Glomerular Filtration Rate > 60.0, Lactic Acid Level 1.2, Calcium Level 8.4L, Total Bilirubin 0.3, Direct Bilirubin 0.1, Aspartate Amino Transf (AST/SGOT) 16, Alanine Aminotransferase (ALT/SGPT) 21, Alkaline Phosphatase 74, Total Creatine Kinase 134, Creatine Kinase MB 3.8H, Creatine Kinase MB Relative Index 2.84, Troponin I 0.03, Total Protein 6.9, Albumin 3.3, Albumin/Globulin Ratio 0.9 IMAGING: Chest xray IMPRESSION: Stable cardiomegaly. Suspect LLL pneumonia and a small left pleural effusion. The lung krishna are otherwise clear. Follow-up is suggested. MICROBIOLOGY: Respiratory panel neg ASSESSMENT: is an 87 yr old [facility] resident w advanced dementia, A fib, hypothyroidism, HTN,CKD3 and anemia who was sent from the [place] for evaluation of apneic episodes, fever and hypoxemia; his vitals and blood work were unremarkable but the chest xray showed LLL PNA; his CURB-65 score is only 2 therefore he will be admitted under observation overnight pending transfer back to the [place]. PLAN: 1 LLL Pneumonia / CAP CURB 65 score to determine if patient should be admitted = 2 = out pt management vs observation admission The respiratory panel was neg & he received Zosyn and Vancomycin in the ER Plan: will admit to the medical floor under observation & anticipate sending him back to the NH tomorrow morning / continuous pulse ox / f/u sputum culture / because he doesnt have SIRS I will not order pancx, legionella ect / per 2019 IDSA/ATS guidelines for CAP will not check procalcitonin to distinguish between viral and bacterial pathogens / bc he has co-morbidities we will treat him with oral levofloxacin for 4 more days 2 Long standing persistent a fib INR within therapeutic range Warfarin 3 Hypothyroidism Levothyroxine 4. Advanced Dementia Soft diet DVT Px w Lovenox Dispo: back to [facility] likely tomorrow morning Home Medications Scheduled Carboxymethylcellulose Sodium (Refresh Tears) 0.5 % [place], 1 DROP OU BID Ketoconazole (Ketoconazole) 120 Ml Shampoo, 1 APLCT TOP QWEEK WEDNESDAY AT 1600 Levothyroxine Sodium (Levoxyl) 112 Mcg Tab, 112 MCG PO QAM Warfarin Sodium (Warfarin Sodium) 4 Mg Tablet, 4.5 MG PO QPM Scheduled PRN Acetaminophen (Acetaminophen) 325 Mg Tablet, 650 MG PO Q4H PRN for PAIN Bisacodyl (Dulcolax) 10 Mg Sup, 10 MG MA DAILY PRN for CONSTIPATION Milk Of Magnesia (Milk of Magnesia) 2,400 Mg/10 Ml Oral.susp, 10 ML PO DAILY PRN for CONSTIPATION Sodium Phosphate,[place]-Dibasic (Enema Cbbdl-Of-Pwz) 1 Mercedes Mercedes, 1 MERCEDES MA DAILY PRN for CONSTIPATION Allergies Coded Allergies: No Known Drug Allergies (Verified Allergy, Unknown, 08/03/20) A-FIB/CHADSVASC A-FIB History Current/History of A-Fib/PAF?: No Current PO Anticoag Therapy: No SANDRA MARLOW MD Aug 04, 2020 00:54
[2020-08-04] MEDS ORDERED: VANCOMYCIN HCL 500 MG in D5W MINI-BAG PLUS 100 ML IV ONE (01:00)
[2020-08-04 02:30] VITALS: BP 164/84
[2020-08-04 04:33] VITALS: O2SAT 96
[2020-08-04 06:00] VITALS: BP 156/80
[2020-08-04] MEDS ORDERED: LevoFLOXacin 500 MG TABLET PO SCH (06:00)
--- NOTE | 2020-08-04 08:41 | IPNPDOC ---
Subjective Date Seen The patient was seen on 08/04/20. Subjective Chief Complaint/HPI No fever or chills after admission. sleeping comfortably Objective Physical Examination General Exam: Positive: No Acute Distress, Other (sleeping, irritable when i tried to wake him up, tried to push my hand away. Allowed physical exam. ) Eye Exam: Positive: PERRLA, Conjunctiva & lids normal, EOMI; Negative: Sclera icteric ENT Exam: Positive: Atraumatic, Mucous membr. moist/pink, Pharynx Normal Neck Exam: Positive: Supple; Negative: JVD, thyromegaly Chest Exam: Positive: Normal air movement, Other (crackles at the bases.) Heart Exam: Positive: Rate Normal, Irregular Rhythm, Normal S1, Normal S2, Murmurs (systolic ); Negative: Rubs Abdomen Exam: Positive: Normal bowel sounds, Soft; Negative: Tenderness, Hepatospenomegaly Extremity Exam: Negative: Clubbing, Cyanosis, Edema Skin Exam: Positive: Nl turgor and temperature; Negative: Rash, Breakdown Assessment /Plan Assessment This is an 87 yr old [facility] resident with advanced dementia, A fib, hypothyroidism, HTN, CKD3, Bilateral carotid stenosis, Chronic Anemia, DLP, Hx of prostate cancer, Debility/unsteady gait, Right colectomy, 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 LLL Pneumonia / CAP continue levofloxacin. Chronic A fib INR within therapeutic range Warfarin Hypothyroidism Levothyroxine Advanced Dementia Soft diet Plan/VTE VTE Prophylaxis Ordered?: Yes VS, I&O, 24H, [place] Vital Signs/I&O Vital Signs Date Time Temp Pulse Resp B/P (MAP) Pulse Ox O2 Delivery O2 Flow Rate FiO2 08/04/20 06:00 97.5 86 20 156/80 (105) 93 Room Air I&O- Last 24 Hours up to 6 AM 08/04/20 06:00 Intake Total 1325 ml Balance 1325 ml Laboratory Data 24H LABS Laboratory Tests 2 08/03/20 22:01: Prothrombin Time 31.0H, Prothromb Time International Ratio 2.90, Activated Partial Thromboplast Time 41.9H 08/03/20 22:02: Immature Granulocyte % (Auto) 0.6, Neutrophils (%) (Auto) 73.3H, Lymphocytes (%) (Auto) 15.2L, Monocytes (%) (Auto) 9.7H, Eosinophils (%) (Auto) 1.0, Basophils (%) (Auto) 0.2, Neutrophils # (Auto) 6.3, Lymphocytes # (Auto) 1.3L, Monocytes # (Auto) 0.8, Eosinophils # (Auto) 0.1, Basophils # (Auto) 0.0, Nucleated Red Blood Cells % (auto) 0.0, Urine Color YELLOW, Urine Appearance CLEAR, Urine pH 6.0, Urine Specific [place] 1.020, Urine Protein 1+H, Urine Glucose (UA) NEGATIVE, Urine Ketones NEGATIVE, Urine Blood 1+H, Urine Nitrite NEGATIVE, Urine Bilirubin NEGATIVE, Urine Urobilinogen 0.2, Urine Leukocyte Esterase NEGATIVE, Urine WBC (Auto) 1, Urine RBC (Auto) 15H, Urine Hyaline Casts (Auto) 3, Urine Bacteria (Auto) NEGATIVE, Urine Squamous Epithelial Cells 0, Urine Mucus (Auto) SMALL, Urine Sperm (Auto) , Anion Gap 5L, Glomerular Filtration Rate > 60.0, Lactic Acid Level 1.2, Calcium Level 8.4L, Total Bilirubin 0.3, Direct Bilirubin 0.1, Aspartate Amino Transf (AST/SGOT) 16, Alanine Aminotransferase (ALT/SGPT) 21, Alkaline Phosphatase 74, Total Creatine Kinase 134, Creatine Kinase MB 3.8H, Creatine Kinase MB Relative Index 2.84, Troponin I 0.03, Total Protein 6.9, Albumin 3.3, Albumin/Globulin Ratio 0.9 CBC/BMP Laboratory Tests 08/03/20 22:02 Microbiology Microbiology 08/04/20 Blood Culture, Received Pending 08/04/20 Blood Culture, Received Pending 08/03/20 Respiratory Virus Panel (PCR) ([facility]) - Final, Complete JOSEFINA COBB MD Aug 04, 2020 08:08
[2020-08-04] MEDS: ENOXAPARIN 40MG/0.4ML SYRINGE (J1650 PER 10MG) SC SCH (09:27)
[2020-08-04 14:00] VITALS: BP 152/76
--- NOTE | 2020-08-04 19:56 | ECGEPIP ---
[facility] - ED Test Date: 2020-08-03 Pat Name: LUIS ANTONIO LONG Department: Room: [place] [address] Gender: Male [employer] Operator: ashley STEVENSB: [id number] Requested By: LEÓN EVANS Order Number: [id number] Reading MD: Costa Amaya Measurements Intervals [place] Rate: 92 P: IA: QRS: -83 QRSD: 154 T: 80 QT: 414 QTc: 511 Interpretive Statements Ventricular-paced rhythm SIMILAR TO 07/14/18 Electronically Signed on 08-04-2020 19:56:23 EST by Costa Amaya
[2020-08-04 21:00] VITALS: O2SAT 97
[2020-08-04 22:00] VITALS: BP 156/73
[2020-08-05 06:00] VITALS: BP 162/84
[2020-08-05 07:44] LABS: BASO % 0.6 % (0.0-1.0); EOS # 0.1 10^3/uL (0.0-0.5); EOS % 2.2 % (0.0-3.0); HEMATOCRIT 43.3 % (42.0-52.0); HEMOGLOBIN 13.5 g/dl (13.5-17.5); LYMPH # 1.2 10^3/uL (1.5-5.0); LYMPH % 22.9 % (24.0-44.0); MEAN CORPUSCULAR HEMOGLOBIN 27.9 pg (27.0-33.0); MEAN CORPUSCULAR HGB CONC 31.2 g/dl (32.0-36.5); MEAN CORPUSCULAR VOLUME 89.5 fl (80.0-96.0); MONO # 0.6 10^3/uL (0.0-0.8); MONO % 11.4 % (2.0-8.0); NEUTROPHILS # 3.2 10^3/uL (1.5-8.5); NEUTROPHILS % 62.5 % (36.0-66.0); PLATELET COUNT, AUTOMATED 233 10^3/uL (150-450); RED BLOOD COUNT 4.84 10^6/uL (4.30-6.10); WHITE BLOOD COUNT 5.1 10^3/uL (4.0-10.0)
[2020-08-05 08:03] LABS: BLOOD UREA NITROGEN 18 MG/DL (7-18); CALCIUM LEVEL 8.9 MG/DL (8.8-10.2); CARBON DIOXIDE LEVEL 26 MEQ/L (21-32); CHLORIDE LEVEL 110 MEQ/L (98-107); CREATININE FOR GFR 1.06 MG/DL (0.70-1.30); GLOMERULAR FILTRATION RATE > 60.0 (>35); GLUCOSE, FASTING 74 MG/DL (70-100); POTASSIUM SERUM 4.3 MEQ/L (3.5-5.1); SODIUM LEVEL 141 MEQ/L (136-145)
[2020-08-05] MEDS: ENOXAPARIN 40MG/0.4ML SYRINGE (J1650 PER 10MG) SC SCH (08:18)
[2020-08-05] MEDS ORDERED: LEVO500T3 PO (09:42)
--- NOTE | 2020-08-05 21:03 | DS.PDOC ---
Discharge Summary General Date of Admission Aug 03, 2020 at 20:35 Date of Discharge 08/05/20 Discharge Summary PROCEDURES PERFORMED DURING STAY: [None]. 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 LLL Pneumonia / CAP continue levofloxacin. Chronic A fib INR within therapeutic range Warfarin Hypothyroidism Levothyroxine Advanced Dementia Soft diet DISCHARGE MEDICATIONS: Please see below. ALLERGIES: Please see below. PHYSICAL EXAMINATION ON DISCHARGE: VITAL SIGNS: Please see below. General Exam: Positive: No Acute Distress, Other (sleeping, irritable when i tried to wake him up, tried to push my hand away. Allowed physical exam. ) Eye Exam: Positive: PERRLA, Conjunctiva & lids normal, EOMI; Negative: Sclera icteric ENT Exam: Positive: Atraumatic, Mucous membr. moist/pink, Pharynx Normal Neck Exam: Positive: Supple; Negative: JVD, thyromegaly Chest Exam: Positive: Normal air movement, Other (crackles at the bases.) Heart Exam: Positive: Rate Normal, Irregular Rhythm, Normal S1, Normal S2, Murmurs (systolic ); Negative: Rubs Abdomen Exam: Positive: Normal bowel sounds, Soft; Negative: Tenderness, Hepatosplenomegaly Extremity Exam: Negative: Clubbing, Cyanosis, Edema Skin Exam: Positive: Nl turgor and temperature; Negative: Rash, Breakdown LABORATORY DATA: Please see below. ACTIVITY: [As tolerated]. DIET: soft diet DISPOSITION: [facility]. DISCHARGE CONDITION: [Stable]. TIME SPENT ON DISCHARGE: 35 minutes. Vital Signs/I&Os Vital Signs Date Time Temp Pulse Resp B/P (MAP) Pulse Ox O2 Delivery O2 Flow Rate FiO2 08/05/20 06:00 98.8 79 20 162/84 (110) 96 Room Air I&O- Last 24 Hours up to 6 AM 08/05/20 07:00 Intake Total 0 ml Balance 0 ml Laboratory Data Labs 24H Laboratory Tests 2 08/05/20 07:29: Immature Granulocyte % (Auto) 0.4, Neutrophils (%) (Auto) 62.5, Lymphocytes (%) (Auto) 22.9L, Monocytes (%) (Auto) 11.4H, Eosinophils (%) (Auto) 2.2, Basophils (%) (Auto) 0.6, Neutrophils # (Auto) 3.2, Lymphocytes # (Auto) 1.2L, Monocytes # (Auto) 0.6, Eosinophils # (Auto) 0.1, Basophils # (Auto) 0.0, Nucleated Red Blood Cells % (auto) 0.0, Anion Gap 5L, Glomerular Filtration Rate > 60.0, Calcium Level 8.9 CBC/BMP Laboratory Tests 08/05/20 07:29 Microbiology Microbiology 08/04/20 Blood Culture - Preliminary, Resulted No growth after 24 hours . All specim... 08/04/20 Blood Culture - Preliminary, Resulted No growth after 24 hours . All specim... 08/03/20 Respiratory Virus Panel (PCR) ([facility]) - Final, Complete Discharge Medications Scheduled Carboxymethylcellulose Sodium (Refresh Tears) 0.5 % [place], 1 DROP OU BID, (Reported) Ketoconazole (Ketoconazole) 120 Ml Shampoo, 1 APLCT TOP QWEEK, (Reported) WEDNESDAY AT 1600 Levofloxacin (Levofloxacin) 500 Mg Tablet, 500 MG PO Q48H Levothyroxine Sodium (Levoxyl) 112 Mcg Tab, 112 MCG PO QAM, (Reported) Warfarin Sodium (Warfarin Sodium) 4 Mg Tablet, 4.5 MG PO QPM, (Reported) Scheduled PRN Acetaminophen (Acetaminophen) 325 Mg Tablet, 650 MG PO Q4H PRN for PAIN, (Reported) Bisacodyl (Dulcolax) 10 Mg Sup, 10 MG TN DAILY PRN for CONSTIPATION, (Reported) Milk Of Magnesia (Milk of Magnesia) 2,400 Mg/10 Ml Oral.susp, 10 ML PO DAILY PRN for CONSTIPATION, (Reported) Sodium Phosphate,Darke-Dibasic (Enema Cdjwo-Gl-Mth) 1 Elie Elie, 1 ELIE TN DAILY PRN for CONSTIPATION, (Reported) Allergies Coded Allergies: No Known Drug Allergies (Verified Allergy, Unknown, 08/03/20) JOSEFINA COBB MD Aug 05, 2020 21:03
== END 2020-08-05 11:35 ==
LOC: M ED 20:34 → M ED INP 20:35 → ENRESERV 08-04 01:31 → M MS5PR 08-04 02:30
PROVIDERS: ADMIT Internal Medicine; ATTEND Internal Medicine Nephrology
DX: J18.9 Pneumonia, unspecified organism (principal); I48.20 Chronic atrial fibrillation, unspecified; F03.90 Unspecified dementia, unspecified severity, without behavioral disturbance, psychotic disturbance, mood disturbance, and anxiety; E03.9 Hypothyroidism, unspecified; I12.9 Hypertensive chronic kidney disease with stage 1 through stage 4 chronic kidney disease, or unspecified chronic kidney disease; N18.30 Chronic kidney disease, stage 3 unspecified; E78.49 Other hyperlipidemia; Z85.46 Personal history of malignant neoplasm of prostate; Z95.0 Presence of cardiac pacemaker; R54 Age-related physical debility; I65.23 Occlusion and stenosis of bilateral carotid arteries; D64.9 Anemia, unspecified; Z79.01 Long term (current) use of anticoagulants; Z79.899 Other long term (current) drug therapy
CPT/HCPCS: 36415; 71045; 80048; 80076; 81001; 82550; 82553; 83605; 84484; 85025; 85610; 85730; 87040; 87798; 93005; 93041; 94760; 96361; 96365; 96366; 96367; 96372; 99285; G0378; J1650; J2543; J3370

== ENCOUNTER → 2020-08-08 | Outpatient (REF) | payer MEDICARE ==
[~2020-08-08] MED LIST changes: +ACET1TAB55 PO; +ACET650S3 PR; +KETO2SHA8 TOP; +LEVO500T3 PO; +MOM30SS PO; +WARF-20 PO
[2020-08-08 10:50] LABS: INR 2.47; PROTHROMBIN TIME 27.3 SECONDS (12.5-14.3)
== END ==
LOC: SKLAB4 10:46
PROVIDERS: ATTEND Internal Medicine
DX: I48.91 Unspecified atrial fibrillation (principal)

== ENCOUNTER → 2020-08-14 | Outpatient (REF) | payer MEDICARE | LOC: SKLAB4 06:56 | PROVIDERS: ATTEND Internal Medicine | DX: Z20.822 Contact with and (suspected) exposure to COVID-19 (principal) ==

== ENCOUNTER → 2020-08-15 | Outpatient (REF) | payer MEDICARE ==
[2020-08-15 08:53] LABS: INR 3.36; PROTHROMBIN TIME 34.8 SECONDS (12.5-14.3)
== END ==
LOC: SKLAB4 11:27
PROVIDERS: ATTEND Internal Medicine
DX: I48.91 Unspecified atrial fibrillation (principal); Z79.899 Other long term (current) drug therapy

== ENCOUNTER → 2020-08-21 | Outpatient (REF) | payer MEDICARE | LOC: SKLAB4 06:56 | PROVIDERS: ATTEND Internal Medicine | DX: Z20.822 Contact with and (suspected) exposure to COVID-19 (principal) ==

== ENCOUNTER → 2020-08-22 | Outpatient (REF) | payer MEDICARE ==
[2020-08-22 08:54] LABS: INR 2.47; PROTHROMBIN TIME 27.3 SECONDS (12.5-14.3)
== END ==
LOC: SKLAB4 08:02
PROVIDERS: ATTEND Internal Medicine
DX: I48.91 Unspecified atrial fibrillation (principal)

== ENCOUNTER → 2020-08-29 | Outpatient (REF) | payer MEDICARE ==
[2020-08-29 07:33] LABS: INR 3.25; PROTHROMBIN TIME 33.9 SECONDS (12.5-14.3)
== END ==
LOC: SKLAB4 09:24
PROVIDERS: ATTEND Internal Medicine
DX: I48.91 Unspecified atrial fibrillation (principal); Z79.899 Other long term (current) drug therapy

== ENCOUNTER → 2020-09-05 | Outpatient (REF) | payer MEDICARE ==
[2020-09-05 08:46] LABS: INR 2.03; PROTHROMBIN TIME 23.4 SECONDS (12.5-14.3)
== END ==
LOC: SKLAB4 07:05
PROVIDERS: ATTEND Internal Medicine
DX: I48.91 Unspecified atrial fibrillation (principal); Z79.899 Other long term (current) drug therapy

== ENCOUNTER → 2020-09-06 | Outpatient (REF) | payer MEDICARE | LOC: SKLAB4 06:02 | PROVIDERS: ATTEND Internal Medicine | DX: Z20.822 Contact with and (suspected) exposure to COVID-19 (principal) ==

== ENCOUNTER → 2020-09-12 | Outpatient (REF) | payer MEDICARE ==
[2020-09-12 10:09] LABS: INR 2.33; PROTHROMBIN TIME 26.1 SECONDS (12.5-14.3)
== END ==
LOC: SKLAB4 10:11
PROVIDERS: ATTEND Internal Medicine
DX: I48.91 Unspecified atrial fibrillation (principal)

== ENCOUNTER → 2020-09-19 | Outpatient (REF) | payer MEDICARE ==
[2020-09-19 09:42] LABS: INR 1.82; PROTHROMBIN TIME 21.5 SECONDS (12.5-14.3)
== END ==
LOC: SKLAB4 12:03
PROVIDERS: ATTEND Internal Medicine
DX: I48.91 Unspecified atrial fibrillation (principal)

== ENCOUNTER → 2020-09-26 | Outpatient (REF) | payer MEDICARE ==
[2020-09-26 10:40] LABS: INR 2.45; PROTHROMBIN TIME 27.1 SECONDS (12.5-14.3)
== END ==
LOC: SKLAB4 11:05
PROVIDERS: ATTEND Internal Medicine
DX: I48.91 Unspecified atrial fibrillation (principal); Z79.899 Other long term (current) drug therapy

== ENCOUNTER → 2020-10-10 | Outpatient (REF) | payer MEDICARE ==
[2020-10-10 09:37] LABS: INR 1.91; PROTHROMBIN TIME 22.3 SECONDS (12.5-14.3)
== END ==
LOC: SKLAB4 09:42
PROVIDERS: ATTEND Internal Medicine
DX: I48.91 Unspecified atrial fibrillation (principal)

== ENCOUNTER → 2020-10-17 | Outpatient (REF) | payer MEDICARE ==
[2020-10-17 11:43] LABS: INR 1.81; PROTHROMBIN TIME 21.4 SECONDS (12.5-14.3)
== END ==
LOC: SKLAB4 08:13
PROVIDERS: ATTEND Internal Medicine
DX: I48.91 Unspecified atrial fibrillation (principal)

== ENCOUNTER → 2020-10-24 | Outpatient (REF) | payer MEDICARE ==
[2020-10-24 10:06] LABS: INR 2.75; PROTHROMBIN TIME 29.7 SECONDS (12.5-14.3)
== END ==
LOC: SKLAB4 06:00
PROVIDERS: ATTEND Internal Medicine
DX: I48.91 Unspecified atrial fibrillation (principal)

== ENCOUNTER → 2020-10-31 | Outpatient (REF) | payer MEDICARE ==
[2020-10-31 10:14] LABS: INR 2.21
== END ==
LOC: SKLAB4 06:55
PROVIDERS: ATTEND Internal Medicine
DX: I48.91 Unspecified atrial fibrillation (principal)

== ENCOUNTER → 2020-11-07 | Outpatient (REF) | payer MEDICARE ==
[2020-11-07 09:36] LABS: INR 1.49; PROTHROMBIN TIME 18.3 SECONDS (12.5-14.3)
== END ==
LOC: SKLAB4 11:06
PROVIDERS: ATTEND Internal Medicine
DX: I48.91 Unspecified atrial fibrillation (principal)

== ENCOUNTER → 2020-11-14 | Outpatient (REF) | payer MEDICARE ==
[2020-11-14 11:15] LABS: INR 2.74; PROTHROMBIN TIME 29.6 SECONDS (12.5-14.3)
== END ==
LOC: SKLAB4 11:06
PROVIDERS: ATTEND Internal Medicine
DX: I48.91 Unspecified atrial fibrillation (principal)

== ENCOUNTER → 2020-11-21 | Outpatient (REF) | payer MEDICARE ==
[2020-11-21 09:52] LABS: INR 2.32
[2020-11-21 15:36] LABS: BLOOD UREA NITROGEN 17 MG/DL (7-18); CALCIUM LEVEL 8.9 MG/DL (8.8-10.2); CARBON DIOXIDE LEVEL 27 MEQ/L (21-32); CHLORIDE LEVEL 109 MEQ/L (98-107); CREATININE FOR GFR 0.95 MG/DL (0.70-1.30); GLOMERULAR FILTRATION RATE > 60.0 (>35); GLUCOSE, FASTING 108 MG/DL (70-100); POTASSIUM SERUM 4.2 MEQ/L (3.5-5.1); SODIUM LEVEL 140 MEQ/L (136-145)
== END ==
LOC: SKLAB4 10:07
PROVIDERS: ATTEND Internal Medicine
DX: I48.91 Unspecified atrial fibrillation (principal)

== ENCOUNTER → 2020-11-28 | Outpatient (REF) | payer MEDICARE ==
[2020-11-28 12:07] LABS: INR 2.45; PROTHROMBIN TIME 27.1 SECONDS (12.5-14.3)
== END ==
LOC: SKLAB4 09:56
PROVIDERS: ATTEND Internal Medicine
DX: I48.91 Unspecified atrial fibrillation (principal)

== ENCOUNTER → 2020-12-05 | Outpatient (REF) | payer MEDICARE ==
[2020-12-05 10:03] LABS: INR 2.98; PROTHROMBIN TIME 31.7 SECONDS (12.5-14.3)
== END ==
LOC: SKLAB4 08:49
PROVIDERS: ATTEND Internal Medicine
DX: I48.91 Unspecified atrial fibrillation (principal)

== ENCOUNTER → 2020-12-12 | Outpatient (REF) | payer MEDICARE ==
[2020-12-12 11:39] LABS: INR 3.6; PROTHROMBIN TIME 36.7 SECONDS (12.5-14.3)
== END ==
LOC: SKLAB4 08:32
PROVIDERS: ATTEND Internal Medicine
DX: I48.91 Unspecified atrial fibrillation (principal)

== ENCOUNTER → 2020-12-19 | Outpatient (REF) | payer MEDICARE ==
[2020-12-19 10:13] LABS: INR 2.15; PROTHROMBIN TIME 24.5 SECONDS (12.5-14.3)
== END ==
LOC: SKLAB4 11:28
PROVIDERS: ATTEND Internal Medicine
DX: I48.91 Unspecified atrial fibrillation (principal)

== ENCOUNTER → 2020-12-26 | Outpatient (REF) | payer MEDICARE ==
[2020-12-26 11:24] LABS: INR 2.17; PROTHROMBIN TIME 24.7 SECONDS (12.5-14.3)
== END ==
LOC: SKLAB4 11:34
PROVIDERS: ATTEND Internal Medicine
DX: I48.91 Unspecified atrial fibrillation (principal)

== ENCOUNTER → 2021-01-02 | Outpatient (REF) | payer MEDICARE ==
[2021-01-02 11:30] LABS: INR 2.9
== END ==
LOC: SKLAB4 08:16
PROVIDERS: ATTEND Internal Medicine
DX: I48.91 Unspecified atrial fibrillation (principal)

== ENCOUNTER → 2021-01-09 | Outpatient (REF) | payer MEDICARE ==
[2021-01-09 13:47] LABS: INR 2.67; PROTHROMBIN TIME 28.8 SECONDS (12.7-14.5)
== END ==
LOC: SKLAB4 07:29
PROVIDERS: ATTEND Internal Medicine
DX: I48.91 Unspecified atrial fibrillation (principal)

== ENCOUNTER → 2021-01-14 | Outpatient (REF) | payer MEDICARE ==
[~2021-01-14] MED LIST changes: +QUET1TAB17 PO; -QUET25TA3 PO
[2021-01-14 14:01] LABS: HEMATOCRIT 47.6 % (42.0-52.0); HEMOGLOBIN 14.9 g/dl (13.5-17.5); MEAN CORPUSCULAR HEMOGLOBIN 28.6 pg (27.0-33.0); MEAN CORPUSCULAR HGB CONC 31.3 g/dl (32.0-36.5); MEAN CORPUSCULAR VOLUME 91.4 fl (80.0-96.0); PLATELET COUNT, AUTOMATED 255 10^3/uL (150-450); RED BLOOD COUNT 5.21 10^6/uL (4.30-6.10); WHITE BLOOD COUNT 6.6 10^3/uL (4.0-10.0)
[2021-01-14 14:39] LABS: ALBUMIN 3.4 GM/DL (3.2-5.2); ALT/SGPT 21 U/L (12-78); BILIRUBIN,TOTAL 0.5 MG/DL (0.2-1.0); BLOOD UREA NITROGEN 23 MG/DL (7-18); CALCIUM LEVEL 8.8 MG/DL (8.8-10.2); CARBON DIOXIDE LEVEL 25 MEQ/L (21-32); CHLORIDE LEVEL 114 MEQ/L (98-107); CREATININE FOR GFR 1.03 MG/DL (0.70-1.30); GLOMERULAR FILTRATION RATE > 60.0 (>35); GLUCOSE, FASTING 130 MG/DL (70-100); POTASSIUM SERUM 3.9 MEQ/L (3.5-5.1); SODIUM LEVEL 143 MEQ/L (136-145); TOTAL PROTEIN 7.6 GM/DL (6.4-8.2)
== END ==
LOC: SKLAB4 06:00
PROVIDERS: ATTEND Internal Medicine
DX: E03.9 Hypothyroidism, unspecified (principal); D64.9 Anemia, unspecified; I48.91 Unspecified atrial fibrillation

== ENCOUNTER → 2021-01-16 | Outpatient (REF) | payer MEDICARE ==
[2021-01-16 12:09] LABS: INR 4.05; PROTHROMBIN TIME 39.6 SECONDS (12.7-14.5)
== END ==
LOC: SKLAB4 06:00
PROVIDERS: ATTEND Internal Medicine
DX: I48.91 Unspecified atrial fibrillation (principal)

== ENCOUNTER → 2021-01-21 | Outpatient (REF) | payer MEDICARE ==
[2021-01-21 10:44] LABS: INR 1.78; PROTHROMBIN TIME 21.2 SECONDS (12.7-14.5)
== END ==
LOC: SKLAB4 08:32
PROVIDERS: ATTEND Internal Medicine
DX: I48.91 Unspecified atrial fibrillation (principal)

== ENCOUNTER → 2021-01-23 | Outpatient (REF) | payer MEDICARE | LOC: SKLAB4 10:47 | PROVIDERS: ATTEND Internal Medicine | DX: I48.91 Unspecified atrial fibrillation (principal) ==

== ENCOUNTER → 2021-01-30 | Outpatient (REF) | payer MEDICARE ==
[2021-01-30 14:10] LABS: INR 2.45
== END ==
LOC: SKLAB4 14:12
PROVIDERS: ATTEND Internal Medicine
DX: I48.91 Unspecified atrial fibrillation (principal)

== ENCOUNTER → 2021-02-06 | Outpatient (REF) | payer MEDICARE ==
[~2021-02-06] MED LIST changes: -LEVO500T3 PO; +LEVO500T4 PO
[2021-02-06 13:53] LABS: INR 1.94; PROTHROMBIN TIME 22.5 SECONDS (12.7-14.5)
== END ==
LOC: SKLAB4 10:10
PROVIDERS: ATTEND Internal Medicine
DX: I48.91 Unspecified atrial fibrillation (principal)

== ENCOUNTER → 2021-02-13 | Outpatient (REF) | payer MEDICARE ==
[~2021-02-13] MED LIST changes: +LEVO500T3 PO; -LEVO500T4 PO
[2021-02-13 10:05] LABS: INR 2.14; PROTHROMBIN TIME 24.3 SECONDS (12.7-14.5)
== END ==
LOC: SKLAB4 11:10
PROVIDERS: ATTEND Internal Medicine
DX: I48.91 Unspecified atrial fibrillation (principal)

== ENCOUNTER → 2021-02-20 | Outpatient (REF) | payer MEDICARE ==
[2021-02-20 10:26] LABS: INR 1.92; PROTHROMBIN TIME 22.4 SECONDS (12.7-14.5)
== END ==
LOC: SKLAB5 10:08
PROVIDERS: ATTEND Internal Medicine
DX: I48.91 Unspecified atrial fibrillation (principal)

== ENCOUNTER → 2021-02-27 | Outpatient (REF) | payer MEDICARE ==
[2021-02-27 13:22] LABS: INR 2.03; PROTHROMBIN TIME 23.4 SECONDS (12.7-14.5)
[2021-02-27 13:33] LABS: ALBUMIN 3.1 GM/DL (3.2-5.2); ALT/SGPT 18 U/L (12-78); BILIRUBIN,TOTAL 0.6 MG/DL (0.2-1.0); BLOOD UREA NITROGEN 18 MG/DL (7-18); CALCIUM LEVEL 8.9 MG/DL (8.8-10.2); CARBON DIOXIDE LEVEL 25 MEQ/L (21-32); CHLORIDE LEVEL 107 MEQ/L (98-107); CREATININE FOR GFR 0.81 MG/DL (0.70-1.30); GLOMERULAR FILTRATION RATE > 60.0 (>35); GLUCOSE, FASTING 82 MG/DL (70-100); POTASSIUM SERUM 4.3 MEQ/L (3.5-5.1); SODIUM LEVEL 139 MEQ/L (136-145); TOTAL PROTEIN 6.5 GM/DL (6.4-8.2)
== END ==
LOC: SKLAB4 05:41
PROVIDERS: ATTEND Internal Medicine
DX: I48.91 Unspecified atrial fibrillation (principal); I50.9 Heart failure, unspecified

== ENCOUNTER → 2021-03-06 | Outpatient (REF) | payer MEDICARE ==
[2021-03-06 10:19] LABS: INR 2.32; PROTHROMBIN TIME 25.9 SECONDS (12.7-14.5)
== END ==
LOC: SKLAB4 08:56
PROVIDERS: ATTEND Internal Medicine
DX: I48.91 Unspecified atrial fibrillation (principal)

== ENCOUNTER → 2021-03-13 | Outpatient (REF) | payer MEDICARE ==
[2021-03-13 14:31] LABS: INR 2.27; PROTHROMBIN TIME 25.4 SECONDS (12.7-14.5)
== END ==
LOC: SKLAB4 06:55
PROVIDERS: ATTEND Internal Medicine
DX: I48.91 Unspecified atrial fibrillation (principal)

== ENCOUNTER → 2021-03-20 | Outpatient (REF) | payer MEDICARE ==
[2021-03-20 12:40] LABS: INR 2.46; PROTHROMBIN TIME 27.1 SECONDS (12.7-14.5)
== END ==
LOC: SKLAB4 07:37
PROVIDERS: ATTEND Internal Medicine
DX: I48.91 Unspecified atrial fibrillation (principal)

== ENCOUNTER → 2021-03-22 | Outpatient (REF) | payer MEDICARE | LOC: SKLAB4 08:09 | PROVIDERS: ATTEND Internal Medicine | DX: Z20.822 Contact with and (suspected) exposure to COVID-19 (principal) ==

== ENCOUNTER → 2021-03-23 | Outpatient (REF) | payer MEDICARE ==
[2021-03-23 21:40] LABS: HEMATOCRIT 42.2 % (42.0-52.0); HEMOGLOBIN 13.5 g/dl (13.5-17.5); MEAN CORPUSCULAR HEMOGLOBIN 28.4 pg (27.0-33.0); MEAN CORPUSCULAR VOLUME 88.7 fl (80.0-96.0); PLATELET COUNT, AUTOMATED 198 10^3/uL (150-450); RED BLOOD COUNT 4.76 10^6/uL (4.30-6.10); WHITE BLOOD COUNT 3.2 10^3/uL (4.0-10.0)
[2021-03-23 22:03] LABS: ALBUMIN 2.8 GM/DL (3.2-5.2); ALT/SGPT 19 U/L (12-78); BILIRUBIN,TOTAL 0.3 MG/DL (0.2-1.0); BLOOD UREA NITROGEN 23 MG/DL (7-18); C REACTIVE PROTEIN QUANTITATIV 2.79 MG/DL (0.00-0.30); CALCIUM LEVEL 8.2 MG/DL (8.8-10.2); CARBON DIOXIDE LEVEL 24 MEQ/L (21-32); CHLORIDE LEVEL 110 MEQ/L (98-107); CREATININE FOR GFR 1.02 MG/DL (0.70-1.30); GLOMERULAR FILTRATION RATE > 60.0 (>35); GLUCOSE, FASTING 118 MG/DL (70-100); SODIUM LEVEL 140 MEQ/L (136-145)
== END ==
LOC: SKLAB2 08:48
PROVIDERS: ATTEND Internal Medicine
DX: U07.1 COVID-19 (principal); Z79.899 Other long term (current) drug therapy

== ENCOUNTER → 2021-03-24 | Outpatient (REF) | payer MEDICARE ==
--- NOTE | 2021-03-24 17:15 | REP ---
INDICATION: SOB. COMPARISON: Multiple latest 08/03/2020 also portable TECHNIQUE: Portable FINDINGS: The technique utilized in obtaining the radiograph has magnified the cardiac silhouette and accentuated the interstitial markings. Once again, there is global cardiomegaly accentuated by technique status quo. The single chamber bipolar pacemaker devices unchanged. There is no change in the lung krishna. No acute patchy parenchymal opacities or pleural effusions have developed on this limited portable exam seen with the patient tilted to the left. IMPRESSION: No significant change from the prior exam. <Electronically signed by Trevin Bhakta > 03/24/21 [id number]
== END ==
LOC: SKLAB2 14:43
PROVIDERS: ATTEND Internal Medicine
DX: I51.7 Cardiomegaly (principal); Z95.0 Presence of cardiac pacemaker; R06.02 Shortness of breath

== ENCOUNTER → 2021-03-24 | Outpatient (REF) | payer MEDICARE ==
[~2021-03-24] MED LIST changes: +ACETAMINOPHEN TAB 650MG DOSE (2X325MG) PO ONE; +ALBUTEROL 90 MCG/ACT 8GM HFA INHALER INH PRN; +ALBUTEROL SULFATE 2.5 MG/0.5 ML INH NEB SOLN INH PRN; +BAMLANIVIMAB 700 MG, ETESEVIMAB 1,400 MG in NS 250 ML IV ONE; +EPINEPHrine INJ 1 MG/ML 1ML AMP IM PRN; +NS 1,000 ML IV SCH; +diphenhydrAMINE 50MG/ML VIAL (J1200) IV ONE; +diphenhydrAMINE 50MG/ML VIAL (J1200) IV PRN; +methylPREDNISolone 125MG 2ML VIAL IV ONE; +methylPREDNISolone 125MG 2ML VIAL IV PRN
== END ==
LOC: SKLAB2 07:52
PROVIDERS: ATTEND Internal Medicine
DX: U07.1 COVID-19 (principal)

== ENCOUNTER → 2021-03-25 | Outpatient (REF) | payer MEDICARE ==
[~2021-03-25] MED LIST changes: -ACETAMINOPHEN TAB 650MG DOSE (2X325MG) PO ONE; -ALBUTEROL 90 MCG/ACT 8GM HFA INHALER INH PRN; -ALBUTEROL SULFATE 2.5 MG/0.5 ML INH NEB SOLN INH PRN; -BAMLANIVIMAB 700 MG, ETESEVIMAB 1,400 MG in NS 250 ML IV ONE; -EPINEPHrine INJ 1 MG/ML 1ML AMP IM PRN; -NS 1,000 ML IV SCH; -diphenhydrAMINE 50MG/ML VIAL (J1200) IV ONE; -diphenhydrAMINE 50MG/ML VIAL (J1200) IV PRN; -methylPREDNISolone 125MG 2ML VIAL IV ONE; -methylPREDNISolone 125MG 2ML VIAL IV PRN
[2021-03-25 10:01] LABS: HEMATOCRIT 49.9 % (42.0-52.0); HEMOGLOBIN 15.2 g/dl (13.5-17.5); MEAN CORPUSCULAR HEMOGLOBIN 28.1 pg (27.0-33.0); MEAN CORPUSCULAR HGB CONC 30.5 g/dl (32.0-36.5); MEAN CORPUSCULAR VOLUME 92.2 fl (80.0-96.0); PLATELET COUNT, AUTOMATED 194 10^3/uL (150-450); RED BLOOD COUNT 5.41 10^6/uL (4.30-6.10); WHITE BLOOD COUNT 2.3 10^3/uL (4.0-10.0)
[2021-03-25 10:14] LABS: BLOOD UREA NITROGEN 32 MG/DL (7-18); CALCIUM LEVEL 8.4 MG/DL (8.8-10.2); CARBON DIOXIDE LEVEL 20 MEQ/L (21-32); CHLORIDE LEVEL 114 MEQ/L (98-107); CREATININE FOR GFR 1.04 MG/DL (0.70-1.30); GLOMERULAR FILTRATION RATE > 60.0 (>35); GLUCOSE, FASTING 141 MG/DL (70-100); POTASSIUM SERUM 4.6 MEQ/L (3.5-5.1); SODIUM LEVEL 144 MEQ/L (136-145)
[2021-03-25 20:56] LABS: INR 4.45; PROTHROMBIN TIME 42.5 SECONDS (12.7-14.5)
== END ==
LOC: SKLAB2 07:00
PROVIDERS: ATTEND Internal Medicine
DX: U07.1 COVID-19 (principal); Z79.899 Other long term (current) drug therapy

== ENCOUNTER → 2021-03-26 | Outpatient (REF) | payer MEDICARE | LOC: SKLAB2 07:00 | PROVIDERS: ATTEND Internal Medicine | DX: I48.91 Unspecified atrial fibrillation (principal); Z53.8 Procedure and treatment not carried out for other reasons ==

== ENCOUNTER → 2021-03-27 | Outpatient (REF) | payer MEDICARE ==
[2021-03-27 11:54] LABS: HEMATOCRIT 47.3 % (42.0-52.0); MEAN CORPUSCULAR HEMOGLOBIN 28.2 pg (27.0-33.0); MEAN CORPUSCULAR HGB CONC 31.7 g/dl (32.0-36.5); MEAN CORPUSCULAR VOLUME 89.1 fl (80.0-96.0); PLATELET COUNT, AUTOMATED 178 10^3/uL (150-450); RED BLOOD COUNT 5.31 10^6/uL (4.30-6.10); WHITE BLOOD COUNT 7.5 10^3/uL (4.0-10.0)
[2021-03-27 12:40] LABS: BLOOD UREA NITROGEN 35 MG/DL (7-18); CALCIUM LEVEL 8.4 MG/DL (8.8-10.2); CARBON DIOXIDE LEVEL 24 MEQ/L (21-32); CHLORIDE LEVEL 113 MEQ/L (98-107); CREATININE FOR GFR 1.08 MG/DL (0.70-1.30); GLOMERULAR FILTRATION RATE > 60.0 (>35); GLUCOSE, FASTING 166 MG/DL (70-100); POTASSIUM SERUM 4.2 MEQ/L (3.5-5.1); SODIUM LEVEL 145 MEQ/L (136-145)
== END ==
LOC: SKLAB2 07:00
PROVIDERS: ATTEND Internal Medicine
DX: U07.1 COVID-19 (principal); Z79.899 Other long term (current) drug therapy

== ENCOUNTER → 2021-03-29 | Outpatient (REF) | payer MEDICARE ==
[2021-03-29 09:45] LABS: HEMATOCRIT 48.6 % (42.0-52.0); HEMOGLOBIN 15.5 g/dl (13.5-17.5); MEAN CORPUSCULAR HEMOGLOBIN 27.8 pg (27.0-33.0); MEAN CORPUSCULAR HGB CONC 31.9 g/dl (32.0-36.5); MEAN CORPUSCULAR VOLUME 87.3 fl (80.0-96.0); PLATELET COUNT, AUTOMATED 198 10^3/uL (150-450); RED BLOOD COUNT 5.57 10^6/uL (4.30-6.10); WHITE BLOOD COUNT 7.3 10^3/uL (4.0-10.0)
[2021-03-29 10:17] LABS: ALBUMIN 2.9 GM/DL (3.2-5.2); ALT/SGPT 34 U/L (12-78); BILIRUBIN,TOTAL 0.6 MG/DL (0.2-1.0); BLOOD UREA NITROGEN 33 MG/DL (7-18); CALCIUM LEVEL 8.6 MG/DL (8.8-10.2); CARBON DIOXIDE LEVEL 23 MEQ/L (21-32); CHLORIDE LEVEL 114 MEQ/L (98-107); CREATININE FOR GFR 0.83 MG/DL (0.70-1.30); GLOMERULAR FILTRATION RATE > 60.0 (>35); GLUCOSE, FASTING 111 MG/DL (70-100); POTASSIUM SERUM 4.7 MEQ/L (3.5-5.1); SODIUM LEVEL 145 MEQ/L (136-145); TOTAL PROTEIN 6.8 GM/DL (6.4-8.2)
== END ==
LOC: SKLAB2 09:53
PROVIDERS: ATTEND Internal Medicine
DX: U07.1 COVID-19 (principal); Z79.899 Other long term (current) drug therapy

== ENCOUNTER → 2021-03-31 | Outpatient (REF) | payer MEDICARE | LOC: SKLAB2 06:59 | PROVIDERS: ATTEND Internal Medicine | DX: U07.1 COVID-19 (principal); Z53.8 Procedure and treatment not carried out for other reasons ==

== ENCOUNTER → 2021-04-02 | Outpatient (REF) | payer MEDICARE | LOC: SKLAB4 09:53 | PROVIDERS: ATTEND Internal Medicine | DX: U07.1 COVID-19 (principal); Z53.8 Procedure and treatment not carried out for other reasons ==

== ENCOUNTER → 2021-04-03 | Outpatient (REF) | payer MEDICARE ==
[2021-04-03 11:40] LABS: HEMATOCRIT 60.7 % (42.0-52.0); HEMOGLOBIN 18.9 g/dl (13.5-17.5); MEAN CORPUSCULAR HEMOGLOBIN 28.3 pg (27.0-33.0); MEAN CORPUSCULAR HGB CONC 31.1 g/dl (32.0-36.5); MEAN CORPUSCULAR VOLUME 90.7 fl (80.0-96.0); PLATELET COUNT, AUTOMATED 302 10^3/uL (150-450); RED BLOOD COUNT 6.69 10^6/uL (4.30-6.10); WHITE BLOOD COUNT 11.9 10^3/uL (4.0-10.0)
[2021-04-03 12:11] LABS: BLOOD UREA NITROGEN 33 MG/DL (7-18); CALCIUM LEVEL 9.7 MG/DL (8.8-10.2); CARBON DIOXIDE LEVEL 24 MEQ/L (21-32); CHLORIDE LEVEL 113 MEQ/L (98-107); GLOMERULAR FILTRATION RATE > 60.0 (>35); GLUCOSE, FASTING 77 MG/DL (70-100); POTASSIUM SERUM 4.2 MEQ/L (3.5-5.1); SODIUM LEVEL 142 MEQ/L (136-145)
== END ==
LOC: SKLAB4 06:47
PROVIDERS: ATTEND Neuromusculoskeletal Medicine & OMM
DX: I48.91 Unspecified atrial fibrillation (principal)

== ENCOUNTER → 2021-04-04 | Outpatient (REF) | payer MEDICARE | LOC: SKLAB4 03-27 06:00 | PROVIDERS: ATTEND Neuromusculoskeletal Medicine & OMM | DX: I48.91 Unspecified atrial fibrillation (principal); Z53.9 Procedure and treatment not carried out, unspecified reason ==